=== PATIENT | female | born 1950 | race Caucasian/White ===

== ENCOUNTER 2018-02-02 01:49 | Emergency (ER) | payer MEDICARE, SELFPAY ==
[2018-02-02 01:56] VITALS: BP 164/71; PULSE 70; RESP 14; TEMP 36.9; O2SAT 95; BMI 29.9
--- NOTE | 2018-02-02 02:07 | XR_ITS ---
XR chest 2V HISTORY: ITS.REASON: cough ORDERING PHYSICIAN: Preston Najera MD PATIENT AGE: 67 years COMPARISON: 09/23/2017 FINDINGS: The cardiomediastinal silhouette and pulmonary vascularity are within normal limits. Bipolar pacemaker is in place. The lungs are clear without infiltrates, suspicious nodules, or pleural effusions. No acute bony abnormalities. IMPRESSION: No acute finding
[2018-02-02 02:36] LABS: Basophils # 0.1 K/mm3 (0-0.2); Basophils % 0.5 % (0.1-2.0); Eosinophils # 0.5 K/mm3 (0.0-0.4); Eosinophils % 4.5 % (0.1-12.0); Hematocrit 41.5 % (37.0-47.0); Hemoglobin 13.2 g/dL (12.2-16.2); Lymphocytes # 3.5 K/mm3 (0.7-4.5); Lymphocytes % 30.5 K/mm3 (10-50); Mean Corpuscular HGB Conc 31.7 g/dL (31.8-35.4); Mean Corpuscular Hemoglobin 26.8 pg (27.0-31.2); Mean Corpuscular Volume 84.8 fl (81-99); Mean Platelet Volume 8.4 fl (7.4-10.4); Monocytes # 0.7 K/mm3 (0.1-1.0); Monocytes % 5.7 % (1.7-9.3); Neutrophils # 6.8 K/mm3 (1.8-7.8); Neutrophils % 58.7 % (37.0-80.0); Platelet Count 181 K/mm3 (142-424); Red Cell Distribution Width 13.1 % (11.5-17.5); White Blood Count 11.6 K/mm3 (4.8-10.8)
[2018-02-02 02:48] LABS: Lactic Acid 1.3 mmol/L (0.4-2.0)
[2018-02-02 02:52] VITALS: PULSE 83
[2018-02-02 02:53] VITALS: PULSE 83
[2018-02-02 02:55] LABS: Anion Gap 10.1 mEq/L (5-15); Blood Urea Nitrogen 15 mg/dL (7-18); CKMB Relative Index 1.3 U/L (0-4.0); Carbon Dioxide 29 mmol/L (21.0-32.0); Chloride 106 mmol/L (98-107); Creatine Kinase 39 U/L (26-192); Creatine Kinase MB < 0.5 mg/ml (0.0-3.6); Creatinine Clearance Estimated 69 mL/min (0-300); Creatinine,Serum 0.79 mg/dL (0.55-1.02); Estimated Glomerular Filt Rate 72 ml/min (>60); GFR (African American) 88 ML/MIN (>60); Glucose 136 mg/dL (74-106); Potassium 4.1 mmoL/L (3.5-5.1); Sodium 141 mmol/L (136-145); Troponin I < 0.02 ng/ml (0.00-0.06)
--- NOTE | 2018-02-02 03:02 | HMH.EDSOB ---
ED Disposition Clinical Impression: Bronchitis, Cardiac pacemaker in situ Disposition: Home, Self-Care Condition on Discharge: Good Instructions: DI for Acute Bronchitis Additional Instructions: use meds and see pcp for follow up Prescriptions: Azithromycin [Zithromax 250mg tab] 250 mg PO DIRECTED #6 tab Benzonatate [Tessalon Perle 100mg Cap] 100 mg PO TID #30 cap predniSONE [Prednisone 20mg Tab] 20 mg PO DAILY #10 tab Referrals: Oracio Tellez MD [Primary Care Provider] - - Critical Care Critical Care Time: No Attestation: On 02/02/18, the high probability of a clinically significant, sudden or life threatening deterioration of the following system(s) required my full and direct attention, intervention and personal management. The time I documented below is in addition to time spent performing reported procedures but includes the following listed in this critical care notation. Medical Decision Making - Medical Records Medical records reviewed: Yes: I reviewed the patient's medical records. - Sánchez Inquiry Pt receiving controlled substance: No Vital Signs: 02/02/18 01:56 02/02/18 02:52 02/02/18 02:53 Temperature 98.4 F Temperature Source Oral Pulse Rate 83 83 Pulse Rate [Left Radial] 70 Respiratory Rate 14 Blood Pressure [Right Arm] 164/71 Blood Pressure Mean [Right Arm] 102 Blood Pressure Source [Right Arm] Automatic Cuff Blood Pressure Position [Right Arm] Sitting 02 Sat by Pulse Oximetry 95 Oxygen Delivery Method Room Air 02/02/18 04:39 Temperature Temperature Source Pulse Rate Pulse Rate [Left Radial] 71 Respiratory Rate 16 Blood Pressure [Right Arm] 136/75 Blood Pressure Mean [Right Arm] 95 Blood Pressure Source [Right Arm] Automatic Cuff Blood Pressure Position [Right Arm] Sitting 02 Sat by Pulse Oximetry 93 L Oxygen Delivery Method Room Air - Lab Data Lab results reviewed: Yes: I reviewed the patient's lab results. Lab Results 02/02/18 02:23: WBC 11.6 H, RBC 4.90, Hgb 13.2, Hct 41.5, MCV 84.8, MCH 26.8 L, MCHC 31.7 L, RDW 13.1, Plt Count 181, MPV 8.4, Neut % (Auto) 58.7, Lymph % (Auto) 30.5, [place] % (Auto) 5.7, Eos % (Auto) 4.5, Baso % (Auto) 0.5, Neut # (Auto) 6.8, Lymph # (Auto) 3.5, [place] # (Auto) 0.7, Eos # (Auto) 0.5 H, Baso # (Auto) 0.1 02/02/18 02:23: Sodium 141, Potassium 4.1, Chloride 106, Carbon Dioxide 29, Anion Gap 10.1, BUN 15, Creatinine 0.79, Estimated Creat Clear 69, Estimated GFR 72, Est GFR ( Amer) 88, Glucose 136 H, Total Creatine Kinase 39, CK-MB (CK-2) < 0.5, CK-MB (CK-2) Rel Index 1.3, Troponin I < 0.02 02/02/18 02:23: Lactic Acid 1.3 02/02/18 02:23: Influenza Type A Ag Negative, Influenza Type B Ag Negative 02/02/18 04:55: Troponin I < 0.02 Result diagrams: 02/02/18 02:23 02/02/18 02:23 Orders (Tests/Meds): ED MEDICATIONS Generic Name Dose Route Start Last Admin Trade Name Freq PRN Reason Stop Dose Admin Albuterol Sulfate 2 puffs 02/02/18 06:00 Proventil-Hfa 90mcg/Puff Inhaler 03/04/18 05:59 Q6RT VIKTOR Ceftriaxone Sodium 1 gm/ 50 mls @ 100 mls/hr 02/02/18 06:00 Sodium Chloride IV 02/16/18 05:59 Q24H VIKTOR Protocol Discontinued Medications Generic Name Dose Route Start Last Admin Trade Name Freq PRN Reason Stop Dose Admin Albuterol/Ipratropium 3 ml 02/02/18 02:10 02/02/18 02:10 Duoneb 3ml Neb IH 02/02/18 02:11 3 ml ONCE ONE Administration Furosemide 40 mg 02/02/18 03:05 02/02/18 03:07 Lasix 40mg/4ml Vial IV 02/02/18 03:06 40 mg ONCE ONE Administration Methylprednisolone Sodium Succinate 125 mg 02/02/18 02:10 02/02/18 02:16 Solu-Medrol 125mg/2ml Vial IV 02/02/18 02:11 125 mg ONCE ONE Administration Miscellaneous 1 unit 02/02/18 05:58 Aerochamber/Optihaler MC 02/02/18 05:59 ONCE ONE ORDERS Category Date Time Status Blood Culture Stat Micro 02/02/18 02:23 Received - Radiology Data #1
--- NOTE | 2018-02-02 03:06 | ED_ITS ---
ED Disposition Clinical Impression: Bronchitis, Cardiac pacemaker in situ Disposition: Home, Self-Care Condition on Discharge: Good Instructions: DI for Acute Bronchitis Additional Instructions: use meds and see pcp for follow up Prescriptions: Azithromycin [Zithromax 250mg tab] 250 mg PO DIRECTED #6 tab Benzonatate [Tessalon Perle 100mg Cap] 100 mg PO TID #30 cap predniSONE [Prednisone 20mg Tab] 20 mg PO DAILY #10 tab Referrals: Oracio Tellez MD [Primary Care Provider] - - Critical Care Critical Care Time: No Attestation: On 02/02/18, the high probability of a clinically significant, sudden or life threatening deterioration of the following system(s) required my full and direct attention, intervention and personal management. The time I documented below is in addition to time spent performing reported procedures but includes the following listed in this critical care notation. Medical Decision Making - Medical Records Medical records reviewed: Yes: I reviewed the patient's medical records. - Sánchez Inquiry Pt receiving controlled substance: No Vital Signs: 02/02/18 01:56 02/02/18 02:52 02/02/18 02:53 Temperature 98.4 F Temperature Source Oral Pulse Rate 83 83 Pulse Rate [Left Radial] 70 Respiratory Rate 14 Blood Pressure [Right Arm] 164/71 Blood Pressure Mean [Right Arm] 102 Blood Pressure Source [Right Arm] Automatic Cuff Blood Pressure Position [Right Arm] Sitting 02 Sat by Pulse Oximetry 95 Oxygen Delivery Method Room Air 02/02/18 04:39 Temperature Temperature Source Pulse Rate Pulse Rate [Left Radial] 71 Respiratory Rate 16 Blood Pressure [Right Arm] 136/75 Blood Pressure Mean [Right Arm] 95 Blood Pressure Source [Right Arm] Automatic Cuff Blood Pressure Position [Right Arm] Sitting 02 Sat by Pulse Oximetry 93 L Oxygen Delivery Method Room Air - Lab Data Lab results reviewed: Yes: I reviewed the patient's lab results. Lab Results 02/02/18 02:23: WBC 11.6 H, RBC 4.90, Hgb 13.2, Hct 41.5, MCV 84.8, MCH 26.8 L, MCHC 31.7 L, RDW 13.1, Plt Count 181, MPV 8.4, Neut % (Auto) 58.7, Lymph % (Auto ) 30.5, [place] % (Auto) 5.7, Eos % (Auto) 4.5, Baso % (Auto) 0.5, Neut # (Auto) 6.8, Lymph # (Auto) 3.5, [place] # (Auto) 0.7, Eos # (Auto) 0.5 H, Baso # (Auto) 0.1 02/02/18 02:23: Sodium 141, Potassium 4.1, Chloride 106, Carbon Dioxide 29, Anion Gap 10.1, BUN 15, Creatinine 0.79, Estimated Creat Clear 69, Estimated GFR 72, Est GFR ( Amer) 88, Glucose 136 H, Total Creatine Kinase 39, CK- MB (CK-2) < 0.5, CK-MB (CK-2) Rel Index 1.3, Troponin I < 0.02 02/02/18 02:23: Lactic Acid 1.3 02/02/18 02:23: Influenza Type A Ag Negative, Influenza Type B Ag Negative 02/02/18 04:55: Troponin I < 0.02 Result diagrams: 02/02/18 02:23 02/02/18 02:23 Orders (Tests/Meds): ED MEDICATIONS Generic Name Dose Route Start Last Admin Trade Name Freq PRN Reason Stop Dose Admin Albuterol Sulfate 2 puffs 02/02/18 06:00 Proventil-Hfa 90mcg/Puff Inhaler IH 03/04/18 05:59 Q6RT [facility] Ceftriaxone Sodium 1 gm/ 50 mls @ 100 mls/hr 02/02/18 06:00 Sodium Chloride IV 02/16/18 05:59 Q24H VIKTOR Protocol Discontinued Medications Generic Name Dose Route Sta
[2018-02-02 04:39] VITALS: BP 136/75; PULSE 71; RESP 16; O2SAT 93
[2018-02-02 05:12] LABS: Troponin I < 0.02 ng/ml (0.00-0.06)
[2018-02-02 06:31] VITALS: BP 150/60; PULSE 78; RESP 14; TEMP 37.1; O2SAT 99
== END 2018-02-02 06:35 | disposition home or self-care (01) ==
PROVIDERS: Emergency Provider Emergency Medicine; Family Provider Family Medicine; PCP Family Medicine
DX: J20.9 Acute bronchitis, unspecified (principal)
CPT/HCPCS: 71046; 80048; 82550; 82553; 83605; 84484; 85025; 87040; 87275; 87276; 93005; 96365; 96374; 99284

== ENCOUNTER → 2018-04-11 08:47 | Outpatient (CLI) | payer MEDICARE, SELFPAY ==
[2018-04-11 10:24] LABS: Anion Gap 13.2 mEq/L (5-15); Blood Urea Nitrogen 17 mg/dL (7-18); Carbon Dioxide 28 mmol/L (21.0-32.0); Chloride 100 mmol/L (98-107); Creatinine,Serum 0.89 mg/dL (0.55-1.02); Estimated Glomerular Filt Rate 63 ml/min (>60); GFR (African American) 76 ML/MIN (>60); Glucose 271 mg/dL (74-106); Potassium 4.2 mmoL/L (3.5-5.1); Sodium 137 mmol/L (136-145)
== END ==
PROVIDERS: Visit Provider Internal Medicine
DX: Z95.0 Presence of cardiac pacemaker (principal)
CPT/HCPCS: 36415; 80048

== ENCOUNTER → 2019-02-22 11:09 | Outpatient (CLI) | payer MEDICARE, SELFPAY ==
--- NOTE | 2019-02-22 11:19 | XR_ITS ---
XR chest 2V HISTORY: ITS.REASON: ASTHMATIC BRONCHITIS ORDERING PHYSICIAN: Oracio Tellez MD PATIENT AGE: 68 years COMPARISON: PA and lateral chest 02/02/2018 FINDINGS: The cardiomediastinal silhouette and pulmonary vascularity are within normal limits. There is a left-sided cardiac pacemaker with dual chamber electrodes both in good position. The lungs are clear without infiltrates, suspicious nodules, or pleural effusions. No acute bony abnormalities. IMPRESSION: Negative chest, no acute finding
== END ==
PROVIDERS: PCP Family Medicine; Visit Provider Family Medicine
DX: J45.901 Unspecified asthma with (acute) exacerbation (principal)
CPT/HCPCS: 71046

== ENCOUNTER 2019-04-23 03:24 | Emergency (ER) | payer MEDICARE, SELFPAY ==
[2019-04-23 03:32] VITALS: BP 156/82; PULSE 85; RESP 16; TEMP 36.8; O2SAT 94; BMI 26.6
--- NOTE | 2019-04-23 03:39 | CT_ITS ---
CT sinus wo con CLINICAL INDICATION: ITS.REASON: right facial pain ORDERING PHYSICIAN: Preston Camejo MD PATIENT AGE: 68 years COMPARISON: None TECHNIQUE:Axial images obtained with sagittal and coronal reformats. All CT scans at the facility use one or more dose reduction, viz: automated exposure control, ma/kV adjustment per patient size (including targeted exams where dose is matched to indication, i.e. head), or iterative reconstruction technique. FINDINGS: Frontal sinuses are unremarkable. There is mild mucosal thickening involving the ethmoid sinuses on both sides. There is mild rightward nasal septal deviation. There is a plasia of the left sphenoid sinus and hypoplasia of the right sphenoid sinus. There is mild mucosal thickening of the maxillary sinuses on both sides with mucous retention cyst in the floor the left maxillary sinus at 14 mm. No sinus air-fluid level. There is under pneumatization with sclerosis of both mastoid sinuses. Prominent disc osteophyte complex is present in the left paracentral region at C5-C6 with canal stenosis and foraminal narrowing. IMPRESSION: Mild paranasal sinus disease Decreased pneumatization with sclerosis of the mastoid sinuses Canal stenosis at C5-C6 from disc osteophyte complex
--- NOTE | 2019-04-23 03:39 | CT_ITS ---
CT head/brain wo con HISTORY: Headache, pain ITS.REASON: right facial pain ORDERING PHYSICIAN: Preston Camejo MD PATIENT AGE: 68 years No comparison TECHNIQUE: Axial images obtained without contrast. Brain and bone windows reviewed. All CT scans at the facility use one or more dose reduction, viz: automated exposure control, ma/kV adjustment per patient size (including targeted exams where dose is matched to indication, i.e. head), or iterative reconstruction technique. FINDINGS: No midline shift, mass effect, intracranial hemorrhage, hydrocephalus, or extra-axial fluid collection is evident. The calvarium has an unremarkable appearance. There is sclerosis of the mastoid sinuses on both sides with decrease pneumatization. There is mild mucosal thickening of the ethmoid sinuses. IMPRESSION: No acute intracranial findings Mild ethmoid sinus disease
[2019-04-23 03:48] LABS: Basophils # 0.1 K/mm3 (0-0.2); Basophils % 0.5 % (0.1-2.0); Eosinophils # 0.3 K/mm3 (0.0-0.4); Eosinophils % 2.3 % (0.1-12.0); Hematocrit 39.1 % (37.0-47.0); Hemoglobin 13.3 g/dL (12.2-16.2); Lymphocytes # 3.2 K/mm3 (0.7-4.5); Lymphocytes % 26.6 % (10-50); Mean Corpuscular Hemoglobin 26.8 pg (27.0-31.2); Mean Corpuscular Volume 78.8 fl (81-99); Mean Platelet Volume 8.4 fl (7.4-10.4); Monocytes # 0.6 K/mm3 (0.1-1.0); Neutrophils % 65.5 % (37.0-80.0); Platelet Count 194 K/mm3 (142-424); Red Blood Count 4.96 M/mm3 (4.20-5.40); Red Cell Distribution Width 12.5 % (11.5-17.5); White Blood Count 12.2 K/mm3 (4.8-10.8)
--- NOTE | 2019-04-23 03:49 | HMH.EDGENADL ---
ED Disposition Clinical Impression: Sinusitis, acute, Facial pain, Diabetes mellitus Disposition: Home, Self-Care Condition on Discharge: Good Instructions: Sinusitis, DI for Sinusitis Additional Instructions: Meds as directed for sinusitis/inflammation. Recommend you also use Afrin nasal spray to help reduce swelling in your large airways. If you see any rash develop on your cheek or forehead, you need to see your primary doctor or return to ER Prescriptions: Oxymetazoline HCl [Afrin Nasal [place] 15mL] 2 spry NOSTRIL-B BID 7 Days #15 spray cephALEXin [Keflex 500mg Cap] 1,000 mg PO BID 7 Days #30 cap Referrals: Oracio Tellez MD [Primary Care Provider] - Time of Disposition: 04:40 - Critical Care Critical Care Time: No Attestation: On 04/23/19, the high probability of a clinically significant, sudden or life threatening deterioration of the following system(s) required my full and direct attention, intervention and personal management. The time I documented below is in addition to time spent performing reported procedures but includes the following listed in this critical care notation. Medical Decision Making - Medical Records Medical records reviewed: Yes: I reviewed the patient's medical records. - Sánchez Inquiry Pt receiving controlled substance: No Sánchez was queried for this patient: No Vital Signs: 04/23/19 03:32 Temperature 98.3 F Temperature Source Oral Pulse Rate [Right] 85 Respiratory Rate 16 Blood Pressure [Right Arm] 156/82 H Blood Pressure Mean [Right Arm] 106 Blood Pressure Source [Right Arm] Automatic Cuff Blood Pressure Position [Right Arm] Sitting 02 Sat by Pulse Oximetry 94 L Oxygen Delivery Method Room Air - Lab Data Lab results reviewed: Yes: I reviewed the patient's lab results. Lab Results 04/23/19 03:40: WBC 12.2 H, RBC 4.96, Hgb 13.3, Hct 39.1, MCV 78.8 L, MCH 26.8 L, MCHC 34.0, RDW 12.5, Plt Count 194, MPV 8.4, Neut % (Auto) 65.5, Lymph % (Auto) 26.6, [place] % (Auto) 5.0, Eos % (Auto) 2.3, Baso % (Auto) 0.5, Neut # (Auto) 8.0 H, Lymph # (Auto) 3.2, [place] # (Auto) 0.6, Eos # (Auto) 0.3, Baso # (Auto) 0.1 04/23/19 03:40: Sodium 140, Potassium 3.9, Chloride 103, Carbon Dioxide 24, Anion Gap 16.9 H, BUN 21 H, Creatinine 1.00, Estimated Creat Clear 61, Estimated GFR 55 L, Est GFR ( Amer) 67, Glucose 143 H, Calcium 9.0, Total Bilirubin 0.6, AST 15, ALT 24, Alkaline Phosphatase 111, Total Protein 7.5, Albumin 3.8, Globulin 3.7 H, Albumin/Globulin Ratio 1.0 L Result diagrams: 04/23/19 03:40 04/23/19 03:40 Orders (Tests/Meds): ED MEDICATIONS Generic Name Dose Route Start Last Admin Trade Name Freq PRN Reason Stop Dose Admin Sodium Chloride 1,000 mls @ 999 mls/hr 04/23/19 03:45 04/23/19 04:08 Sod Chlor 0.9% 1000ml Bag IV 04/23/19 04:45 999 mls/hr .Q1H1M VIKTOR Administration Ceftriaxone Sodium 2 gm/ 100 mls @ 200 mls/hr 04/23/19 04:30 04/23/19 04:30 Sodium Chloride IV 05/07/19 04:29 200 mls/hr Q12H VIKTOR Administration Protocol Discontinued Medications Generic Name Dose Route Start Last Admin Trade Name Freq PRN Reason Stop Dose Admin Ketorolac Tromethamine 30 mg 04/23/19 03:48 04/23/19 04:08 Toradol 30mg/Ml Vial IV 04/23/19 03:49 30 mg ONCE ONE Administration Methylprednisolone Sodium Succinate 125 mg 04/23/19 03:40 04/23/19 04:08 Solu-Medrol 125mg/2ml Vial IV 04/23/19 03:41 125 mg ONCE ONE Administration Ondansetron HCl 4 mg 04/23/19 03:40 04/23/19 04:08 Zofran 4mg/2ml Vial IV 04/23/19 03:41 4 mg ONCE ONE Administration ORDERS Category Date Time Status CT head/brain wo con Stat Cat Scan 04/23/19 03:[address] sinus wo con Stat Cat Scan 04/23/19 03:39 Taken General Adult HPI - General Chief complaint: PAIN Stated complaint: Pain in Rt side of face and neck;nausea Time Seen by Provider: 04/23/19 03:49 Mode of Arrival: Ambulatory Source of Information: Patient Limitations: No Law
--- NOTE | 2019-04-23 03:52 | ED_ITS ---
ED Disposition Clinical Impression: Sinusitis, acute, Facial pain, Diabetes mellitus Disposition: Home, Self-Care Condition on Discharge: Good Instructions: Sinusitis, DI for Sinusitis Additional Instructions: Meds as directed for sinusitis/inflammation. Recommend you also use Afrin nasal spray to help reduce swelling in your large airways. If you see any rash develop on your cheek or forehead, you need to see your primary doctor or return to ER Prescriptions: Oxymetazoline HCl [Afrin Nasal [place] 15mL] 2 spry NOSTRIL-B BID 7 Days #15 spray cephALEXin [Keflex 500mg Cap] 1,000 mg PO BID 7 Days #30 cap Referrals: Oracio Tellez MD [Primary Care Provider] - Time of Disposition: 04:40 - Critical Care Critical Care Time: No Attestation: On 04/23/19, the high probability of a clinically significant, sudden or life threatening deterioration of the following system(s) required my full and direct attention, intervention and personal management. The time I documented below is in addition to time spent performing reported procedures but includes the following listed in this critical care notation. Medical Decision Making - Medical Records Medical records reviewed: Yes: I reviewed the patient's medical records. - Sánchez Inquiry Pt receiving controlled substance: No Sánchez was queried for this patient: No Vital Signs: 04/23/19 03:32 Temperature 98.3 F Temperature Source Oral Pulse Rate [Right] 85 Respiratory Rate 16 Blood Pressure [Right Arm] 156/82 H Blood Pressure Mean [Right Arm] 106 Blood Pressure Source [Right Arm] Automatic Cuff Blood Pressure Position [Right Arm] Sitting 02 Sat by Pulse Oximetry 94 L Oxygen Delivery Method Room Air - Lab Data Lab results reviewed: Yes: I reviewed the patient's lab results. Lab Results 04/23/19 03:40: WBC 12.2 H, RBC 4.96, Hgb 13.3, Hct 39.1, MCV 78.8 L, MCH 26.8 L , MCHC 34.0, RDW 12.5, Plt Count 194, MPV 8.4, Neut % (Auto) 65.5, Lymph % (Auto) 26.6, [place] % (Auto) 5.0, Eos % (Auto) 2.3, Baso % (Auto) 0.5, Neut # ( Auto) 8.0 H, Lymph # (Auto) 3.2, [place] # (Auto) 0.6, Eos # (Auto) 0.3, Baso # (Auto) 0.1 04/23/19 03:40: Sodium 140, Potassium 3.9, Chloride 103, Carbon Dioxide 24, Anion Gap 16.9 H, BUN 21 H, Creatinine 1.00, Estimated Creat Clear 61, Estimated GFR 55 L, Est GFR ( Amer) 67, Glucose 143 H, Calcium 9.0, Total Bilirubin 0.6, AST 15, ALT 24, Alkaline Phosphatase 111, Total Protein 7.5, Albumin 3.8, Globulin 3.7 H, Albumin/Globulin Ratio 1.0 L Result diagrams: 04/23/19 03:40 04/23/19 03:40 Orders (Tests/Meds): ED MEDICATIONS Generic Name Dose Route Start Last Admin Trade Name Freq PRN Reason Stop Dose Admin Sodium Chloride 1,000 mls @ 999 mls/hr 04/23/19 03:45 04/23/19 04:08 Sod Chlor 0.9% 1000ml Bag IV 04/23/19 04:45 999 mls/hr .Q1H1M VIKTOR Administration Ceftriaxone Sodium 2 gm/ 100 mls @ 200 mls/hr 04/23/19 04:30 04/23/19 04:30 Sodium Chloride IV 05/07/19 04:29 200 mls/hr Q12H VIKTOR Administration Protocol Discontinued Medications Generic Name Dose Route Start Last Admin Trade Name Freq PRN Reason Stop Dose Admin Ketorolac Tromethamine 30 mg 04/23/19 03:48 04/23/19 04:08 Toradol 30m
[2019-04-23 04:03] LABS: Alanine Aminotransferase 24 U/L (12-78); Albumin Level 3.8 gm/dL (3.4-5.0); Alkaline Phosphatase 111 U/L (46-116); Anion Gap 16.9 mEq/L (5-15); Aspartate Amino Transferase 15 U/L (15-37); Bilirubin,Total 0.6 mg/dL (0.2-1.0); Blood Urea Nitrogen 21 mg/dL (7-18); Carbon Dioxide 24 mmol/L (21.0-32.0); Chloride 103 mmol/L (98-107); Creatinine Clearance Estimated 61 mL/min (50-200); Estimated Glomerular Filt Rate 55 ml/min (>60); GFR (African American) 67 ML/MIN (>60); Globulin 3.7 gm/dl (1.3-3.2); Glucose 143 mg/dL (74-106); Potassium 3.9 mmoL/L (3.5-5.1); Sodium 140 mmol/L (136-145); Total Protein,Serum 7.5 gm/dL (6.4-8.2)
[2019-04-23 05:13] VITALS: BP 152/68; PULSE 86; RESP 16; TEMP 36.8; O2SAT 98
== END 2019-04-23 05:15 | disposition home or self-care (01) ==
PROVIDERS: Emergency Provider Emergency Medicine; PCP Family Medicine
DX: J01.90 Acute sinusitis, unspecified (principal); I10 Essential (primary) hypertension; E11.9 Type 2 diabetes mellitus without complications; Z79.84 Long term (current) use of oral hypoglycemic drugs; E78.5 Hyperlipidemia, unspecified; Z95.0 Presence of cardiac pacemaker
CPT/HCPCS: 70450; 70486; 80053; 85025; 96365; 96367; 96375; 99283; J2405

== ENCOUNTER → 2019-10-04 12:25 | Outpatient (CLI) | payer MEDICARE, SELFPAY ==
--- NOTE | 2019-10-04 12:30 | CT_ITS ---
PROCEDURE: CT HEAD/BRAIN WO CON CLINICAL INDICATION: TRAUMATIC HEAD INJURY Rind signing following injury with loss of consciousness, persistent headache COMPARISON: HEADWO CT head/brain wo con from 04/23/2019 TECHNIQUE: Axial images obtained. All CT scans at the facility use one or more dose reduction, viz: automated exposure control, ma/kV adjustment per patient size (including targeted exams where dose is matched to indication, i.e. head), or iterative reconstruction technique. FINDINGS: No midline shift, mass effect, intracranial hemorrhage, hydrocephalus, or extra-axial fluid collection is evident. There is mild bifrontal atrophy. The calvarium has an unremarkable appearance. The mastoid sinuses are hypoplastic. Mild mucosal thickening involves the ethmoid sinuses. IMPRESSION: No acute intracranial finding Dictated by: Tj Haynes MD 10/04/2019 16:45 Electronically signed by Tj Haynes MD in [place] 10/04/2019 16:45
== END ==
PROVIDERS: PCP Family Medicine; Visit Provider Family Medicine
DX: S09.90XA Unspecified injury of head, initial encounter (principal)
CPT/HCPCS: 70450

== ENCOUNTER → 2019-11-06 10:45 | Outpatient (CLI) | payer MEDICARE, SELFPAY ==
--- NOTE | 2019-11-06 10:45 | CA_ITS ---
APPROVED REPORT EXAM: Comprehensive 2D, Doppler, and color-flow Echocardiogram [employer] Machine Repairer: Jamaica Garcia RDCS Ht: 5 ft 5 in Wt: 166lbs BSA: 1.83 BP: 129/58 mmHg Indications: Abnormal ECG, Diabetes, Obesity, Hyperlipidemia, Hypertension/HDD,PP 2D Dimensions LVOT 1.80 cm (M/F) 1.5-2.5 M-Mode Dimensions RVDd 1.93 cm (0.9-2.6) LVDd 5.45 cm (3.5-5.7) LVDs 4.43 cm (3.5-5.7) IVSd 1.10 cm (0.6-1.1) PWd 0.78 cm (0.6-1.1) EF (Teich) 38.30% FS 18.70% EDV (Teich) 144.40 mL ESV (Teich) 89.10 mL LV Diastology E/A Ratio 0.81 Mitral Valve MV A Velocity 82.00 (40-130 cm/s) Left Ventricle Left atrium is mildly enlarged, left ventricle is normal size, mild concentric left ventricular hypertrophy, visually estimated ejection fraction 55% with no regional wall motion abnormality. Grade 1 diastolic dysfunction seen with tissue Doppler evidence of raise left atrial pressure. Right Ventricle Right atrium and right ventricle mildly enlarged with normal contractility. Aortic Valve Aortic valve is minimally thickened and fibrosed leaflet continue to display good mobility, there is no aortic stenosis or aortic insufficiency. Mitral Valve Mitral valve is grossly normal, there is mild mitral regurgitation. Tricuspid Valve Tricuspid valve is grossly normal, there is mild tricuspid regurgitation. Pulmonic Valve Pulmonic valve is poorly visualized. Great Vessels Aortic root is normal size. Pericardium No significant pericardial effusion noted. Conclusion 1. Mildly enlarged left atrium, normal left ventricular size, mild concentric left ventricular hypertrophy, visually estimated ejection fraction 55% with no regional wall motion abnormality, grade 1 diastolic dysfunction seen with tissue Doppler evidence of raise left atrial pressure. 2. Mildly enlarged right ventricle with normal contractility. 3. Mild mitral and tricuspid regurgitation. 4. No significant pericardial effusion noted. Electronically signed by : Benja Parker, 11/07/2019 06:17:42
== END ==
PROVIDERS: PCP Family Medicine; Visit Provider Urology
DX: E11.9 Type 2 diabetes mellitus without complications (principal); G47.33 Obstructive sleep apnea (adult) (pediatric); I10 Essential (primary) hypertension; Z95.0 Presence of cardiac pacemaker; E78.49 Other hyperlipidemia; Z79.84 Long term (current) use of oral hypoglycemic drugs
CPT/HCPCS: 93306

== ENCOUNTER → 2020-07-15 08:03 | Outpatient (CLI) | payer MEDICARE, SELFPAY ==
--- NOTE | 2020-07-15 08:08 | XR_ITS ---
PROCEDURE: XR DEXA AXIAL SKELETON CLINICAL HISTORY: OSTEOPENIA, UNSPECIFIED COMPARISON: No exams were available for comparison FINDINGS: The right hip BMD is 0.773 with a t-score of -1.0. The left hip BMD is 0.841 with a t-score of -0.8. The lumbar spine BMD is 0.901 with a t-score of -1.3. IMPRESSION: This patient is considered osteopenic according to the World Health Organization criteria. Bone density is between 10 and 25 percent below young normal . Fracture risk is moderate. Treatment is advised. Based on these results of follow-up exam is recommended in 2 years Dictated by: Tj Haynes MD 07/16/2020 20:06 Tj Haynes MD in [place] 07/17/2020 06:13
--- NOTE | 2020-07-15 08:08 | MM_ITS ---
PROCEDURE: MM DIG SCREENING MAMM BI W/CAD Digital Breast Tomosynthesis Included CLINICAL INDICATION: SCREENING There is a history of breast cancer patient's sister diagnosed at age 70. COMPARISON: MG DIGMAMMDX MAMMOGRAM DX-QUALITY CONTROL COORDINATOR N/C from 09/07/2007 MG DIGMAMMS MAMMOGRAM SCREEN-QUALITY CONTROL COORDINATOR N/C from 03/07/2008 MG DMSB DIG MAMM-SCREEN CAYLA W/CAD from 03/30/2017 TECHNIQUE: Standard CC and MLO images and 3D Tomosynthesis was obtained. R2 CAD reviewed. FINDINGS: Moderate scattered fibroglandular densities are seen throughout both breasts slightly more prominent upper outer quadrants. There are couple of benign-appearing calcifications in each breast. There is no suspicious lesion and no suspicious microcalcifications. IMPRESSION: Moderate breast density with no suspicious lesions seen BI-RAD Category: 2 Benign Finding(s) FOLLOW-UP: 1YR 1 Year Follow-up (A letter has been sent to the patient regarding results of the study.) Dictated by: Dr. Henry Gilman MD 07/16/2020 08:23 Dr. Henry Gilman MD in [place] 07/16/2020 08:23
== END ==
PROVIDERS: PCP Family Medicine; Visit Provider Family Medicine
DX: Z12.31 Encounter for screening mammogram for malignant neoplasm of breast (principal); M85.89 Other specified disorders of bone density and structure, multiple sites
CPT/HCPCS: 77063; 77067; 77080

== ENCOUNTER → 2020-10-30 06:50 | Outpatient (CLI) | payer MEDICARE, SELFPAY ==
--- NOTE | 2020-10-30 06:51 | CA_ITS ---
APPROVED REPORT Exam: Pharmacologic Technologist: Yuridia Mayer Ht: 5 ft 5 in Wt: 171 lbs BSA: 1.85 m2 HR: 70 bpm BP: 139/63 mmHg Indications: Chest pain Medical History Medications: Aspirin,,,,, Metformin,,,,, Glimepiride,,,,, RoSUVASTATIN,,,,, TriaMterene-hctz,,,,, Stress Test Details Test: LEXISCAN HR Resting HR: 70 bpm Max Heart Rate (APMHR): 149 bpm Max HR Achieved: 71 bpm Target HR (85% APMHR): 126 bpm % of APMHR: 47 Recovery HR: 70 bpm BP Resting BP: 139.0/63.0 mmHg Max BP: 156.0/73.0 mmHg Recovery BP: 145.0/65.0 mmHg ECG Clinical Exercise duration: 04:13 min Highest Stage Achieved: Stress ECG Conclusion Resting EKG: Electronically paced rhythm Symptoms: Shortness of air, nausea, malaise. No chest pain. Arrhythmias/Ectopy: None ST-T Changes: Mild ST depression of 1 mm inferiorly and laterally. Conclusion: Non-diagnostic Lexiscan stress. Myoview images reported separately. Test Summary RECOVERY 05:00 . . 70 . 156/ 73 . . REST 04:57 . . 70 . 139/ 63 . . Stage 1 . . . . . . . Myoview Injected Stage 1 01:00 . . 70 . . . . Stage 2 01:00 . . 70 . 113/ 42 . . Stage 3 . . . . . . . Nausea Stage 3 01:00 . . 69 . 115/ 52 . . Stage 4 01:00 . . 70 . . . . Stage 4 01:13 . . 70 . . . Stop exercise at 04:13 RECOVERY 01:00 . . 70 . . . . RECOVERY 02:00 . . 70 . . . . RECOVERY 03:00 . . 70 . . . . RECOVERY 04:00 . . 70 . 156/ 73 . . RECOVERY 05:00 . . 70 . 156/ 73 . . RECOVERY 05:58 . . 70 . 145/ 65 . . Electronically signed by : Benja Parker, 10/31/2020 10:56:07
--- NOTE | 2020-10-30 06:51 | NM_ITS ---
APPROVED REPORT Exam: Nuclear Stress Test Indication: HTN, D.M., HYPERLIPIDEMIA, FM HX, C.P. Patient Location: Outpatient Stress Tech: Yuridia Mayer [place] Tech:Anel Puckett, ARRT, RT (R)(N) Ht: 5 ft 5 in Wt: 170 lbs HR: 70 bpm BP: 139/63 mmHg BSA: 1.85 m2 BMI: 28.2 History: HTN, D.M., HYPERLIPIDEMIA, FM HX, C.P. Procedure: Patient received a 0.4 mg of intravenous Lexiscan, resting heart rate 70 bpm, resting blood pressure 139/63 mmHg, with Lexiscan maximum heart rate achived was 70 bpm which is Less than 85 % of the maximum predicted heart rate and blood pressure was 113/42 mmHg. With Lexiscan, patient denied any complaint of chest pain. Electrocardiogram Resting electrocardiogram showed sinus rhythm, with Lexiscan there is [address] segment depression noted from the baseline EKG. The EKG portion of the Lexiscan Myoview is positive for ischemia. Cardiac Stress and Resting SPECT Images: Cardiac Stress and Resting SPECT images were obtained using technetium 99m Myoview 32.6 mCi stress and 10.71 mCi at rest. Gated SPECT for analysis of segmental wall motion and calculation of the ejection fraction also done, prone images were also obtained. The cardiac stress and resting SPECT images show uniform myocardial activity without segmental perfusion abnormality, computer derived ejection fraction is over 65% with no regional wall motion abnormality, however there appears to be mild transient ischemic dilatation of the left ventricle raising the concerns for presence of balanced ischemia. Conclusion: 1. The EKG portion of the Lexiscan Myoview is positive for ischemia. 2. No scintigraphic evidence of reversible ischemia seen, however there is transient ischemic dilatation of the left ventricle seen, raising the concerns for presence of balanced ischemia. Compared to ejection fraction is over 65% with no regional wall motion abnormality. 3. Abnormal Lexiscan Myoview study. Electronically signed by : Benja Parker, 10/31/2020 11:01:43
--- NOTE | 2020-10-30 08:35 | HMH.ITSHM ---
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 []HCTZ ROSUVASTATIN GLIMEPIRIDE METFORMIN
== END ==
PROVIDERS: PCP Family Medicine; Visit Provider Urology
DX: E11.9 Type 2 diabetes mellitus without complications (principal); E78.2 Mixed hyperlipidemia; G47.33 Obstructive sleep apnea (adult) (pediatric); I10 Essential (primary) hypertension; R07.9 Chest pain, unspecified; Z95.0 Presence of cardiac pacemaker; Z79.84 Long term (current) use of oral hypoglycemic drugs
CPT/HCPCS: 78452; 93017; A9502; J2785

== ENCOUNTER → 2020-11-04 10:24 | Outpatient (CLI) | payer MEDICARE, SELFPAY ==
[2020-11-04 11:53] LABS: Coronavirus 19 IgG Antibody Negative (Negative); Coronavirus 19 IgM Antibody Negative (Negative)
[2020-11-04 12:14] LABS: Alanine Aminotransferase 22 U/L (12-78); Albumin Level 4.5 g/dl (3.5-5.0); Alkaline Phosphatase 127 U/L (38-126); Anion Gap 13.5 mEq/L (5-15); Aspartate Amino Transferase 21 U/L (14-36); Bilirubin,Direct 0.3 mg/dl (0.0-0.4); Bilirubin,Indirect 0.3 mg/dL (0.0-0.9); Bilirubin,Total 0.6 mg/dl (0.2-1.3); Bilirubin,Unconjugated 0.3 mg/dL (0.0-1.1); Blood Urea Nitrogen 20 mg/dl (7-17); Calcium 9.8 mg/dl (8.4-10.2); Carbon Dioxide 27 mmol/L (22.0-30.0); Chloride 101 mmol/L (98-107); Cholesterol 165 mg/dl (140-200); Estimated Glomerular Filt Rate 71 ml/min (>60); GFR (African American) 86 ML/MIN (>60); Glucose 267 mg/dl (74-100); HDL Cholesterol 55 mg/dl (40-60); Potassium 4.5 mmoL/L (3.5-5.1); Sodium 137 mmol/L (136-145); Total Protein,Serum 7.3 g/dl (6.3-8.2); Triglycerides 119 mg/dl (30-150); VLDL Cholesterol 24 mg/dL (0-40)
[2020-11-04 12:25] LABS: Direct LDL Cholesterol 84.15 mg/dL (100-129)
[2020-11-04 13:24] LABS: Basophils # 0.1 K/mm3 (0-0.2); Eosinophils # 0.5 K/mm3 (0.0-0.4); Eosinophils % 4.4 % (0.1-12.0); Hematocrit 43.1 % (37.0-47.0); Hemoglobin 13.9 g/dL (12.2-16.2); Lymphocytes # 3.8 K/mm3 (0.7-4.5); Lymphocytes % 36.8 % (10-50); Mean Corpuscular HGB Conc 32.3 g/dL (31.8-35.4); Mean Corpuscular Hemoglobin 26.8 pg (27.0-31.2); Mean Corpuscular Volume 82.8 fl (81-99); Mean Platelet Volume 9.2 fl (7.4-10.4); Monocytes # 0.5 K/mm3 (0.1-1.0); Monocytes % 4.6 % (1.7-9.3); Neutrophils # 5.5 K/mm3 (1.8-7.8); Neutrophils % 53.2 % (37.0-80.0); Platelet Count 181 K/mm3 (142-424); Red Blood Count 5.21 M/mm3 (4.20-5.40); White Blood Count 10.3 K/mm3 (4.8-10.8)
== END ==
PROVIDERS: Visit Provider Nurse Practitioner Family
DX: I10 Essential (primary) hypertension (principal); E11.9 Type 2 diabetes mellitus without complications; E78.2 Mixed hyperlipidemia; I20.8 Other forms of angina pectoris; R94.31 Abnormal electrocardiogram [ECG] [EKG]; R94.39 Abnormal result of other cardiovascular function study; Z95.0 Presence of cardiac pacemaker; Z01.810 Encounter for preprocedural cardiovascular examination
CPT/HCPCS: 36415; 80048; 80061; 80076; 85025; 86328

== ENCOUNTER 2020-11-05 08:50 | Day surgery (SDC) | payer MEDICARE, SELFPAY ==
[2020-11-05] VITALS (11 sets, daily range): BP systolic 105–157; BP diastolic 59–91; PULSE 60–70; RESP 13–20; TEMP 36.7; O2SAT 93–99; BMI 28.6
--- NOTE | 2020-11-05 07:09 | IR_ITS ---
APPROVED REPORT Patient Location: Outpatient PROCEDURES Left heart catheterization Left ventriculogram Selective coronary angiogram INDICATION Angina pectoris, Abnormal Myoview Informed consent was obtained prior to the procedure. COMPLICATIONS None Estimated Blood Loss: less than 10ml TECHNIQUE One percent lidocaine used to anesthetize the right anterior aspect of the wrist. The right radial artery was accessed via the Seldinger technique. A 6 Hungarian sheath was placed in the right radial artery. 2.5 mg of verapamil, 800 mcg of nitroglycerin, 1mg Lidocaine and 5000 U Heparin were given through the arterial sheath. The trap catheter was also used to perform left heart catheterization, left ventriculogram and selective coronary angiogram. At the end of the procedure the sheath was removed good hemostasis was achieved using Traclet band, patient was transferred to the postop holding area in stable condition. ANGIOGRAPHIC RESULTS The left main artery Normal The left anterior descending artery Normal The circumflex artery Dominant normal The right coronary artery Normal The DALE ventriculogram reveals Hyperdynamic 75% The left ventricular end-diastolic pressure 20 mmHg IMPRESSION Normal coronary arteries Hyperdynamic ventricle estimated at 75% Elevated LVEDP consistent with hypertensive heart disease with accompanying diastolic dysfunction PLAN 1. Treatment of hypertensive heart disease Electronically signed by : Giovani Solorzano, 11/05/2020 13:20:09
== END 2020-11-05 15:49 | disposition home or self-care (01) ==
LOC: CATHLAB 08:52
PROVIDERS: PCP Family Medicine; Visit Provider Internal Medicine
DX: E11.9 Type 2 diabetes mellitus without complications (principal); E78.2 Mixed hyperlipidemia; R94.31 Abnormal electrocardiogram [ECG] [EKG]; R94.39 Abnormal result of other cardiovascular function study; Z95.0 Presence of cardiac pacemaker; I25.118 Atherosclerotic heart disease of native coronary artery with other forms of angina pectoris; I11.0 Hypertensive heart disease with heart failure; I50.32 Chronic diastolic (congestive) heart failure; Z79.84 Long term (current) use of oral hypoglycemic drugs; G47.33 Obstructive sleep apnea (adult) (pediatric); Z79.899 Other long term (current) drug therapy
CPT/HCPCS: 93458; 99152; C1725; C1769; J1644; Q9967

== ENCOUNTER → 2020-11-19 11:12 | Outpatient (CLI) | payer MEDICARE, SELFPAY ==
[2020-11-19 12:52] LABS: Chloride 101 mmol/L (98-107); Potassium 5.5 mmoL/L (3.5-5.1); Sodium 137 mmol/L (136-145)
[2020-11-19 12:55] LABS: Anion Gap 12.5 mEq/L (5-15); Blood Urea Nitrogen 23 mg/dl (7-17); Calcium 10.3 mg/dl (8.4-10.2); Carbon Dioxide 29 mmol/L (22.0-30.0); Estimated Glomerular Filt Rate 62 ml/min (>60); GFR (African American) 75 ML/MIN (>60); Glucose 220 mg/dl (74-100)
== END ==
PROVIDERS: Visit Provider Urology
DX: E78.2 Mixed hyperlipidemia (principal); I10 Essential (primary) hypertension; I51.9 Heart disease, unspecified; Z95.0 Presence of cardiac pacemaker
CPT/HCPCS: 36415; 80048

== ENCOUNTER → 2020-11-27 12:43 | Outpatient (CLI) | payer MEDICARE, SELFPAY ==
[2020-11-27 14:46] LABS: Chloride 101 mmol/L (98-107); Sodium 139 mmol/L (136-145)
[2020-11-27 14:47] LABS: Potassium 5.2 mmoL/L (3.5-5.1)
[2020-11-27 14:49] LABS: Blood Urea Nitrogen 15 mg/dl (7-17); Estimated Glomerular Filt Rate 62 ml/min (>60); GFR (African American) 75 ML/MIN (>60)
[2020-11-27 14:50] LABS: Anion Gap 13.2 mEq/L (5-15); Calcium 10.3 mg/dl (8.4-10.2); Carbon Dioxide 30 mmol/L (22.0-30.0); Glucose 236 mg/dl (74-100)
== END ==
PROVIDERS: PCP Family Medicine; Visit Provider Nurse Practitioner Family
DX: I10 Essential (primary) hypertension; E78.5 Hyperlipidemia, unspecified; E87.5 Hyperkalemia; Z95.0 Presence of cardiac pacemaker
CPT/HCPCS: 36415; 80048

== ENCOUNTER → 2020-12-04 09:55 | Outpatient (CLI) | payer MEDICARE, SELFPAY ==
[2020-12-04 11:31] LABS: Anion Gap 13.1 mEq/L (5-15); Blood Urea Nitrogen 21 mg/dl (7-17); Calcium 10.3 mg/dl (8.4-10.2); Carbon Dioxide 29 mmol/L (22.0-30.0); Chloride 102 mmol/L (98-107); Estimated Glomerular Filt Rate 62 ml/min (>60); GFR (African American) 75 ML/MIN (>60); Glucose 235 mg/dl (74-100); Potassium 5.1 mmoL/L (3.5-5.1); Sodium 139 mmol/L (136-145)
== END ==
PROVIDERS: Visit Provider Nurse Practitioner Family
DX: E87.5 Hyperkalemia (principal)
CPT/HCPCS: 36415; 80048

== ENCOUNTER → 2020-12-16 12:19 | Outpatient (CLI) | payer MEDICARE, SELFPAY ==
[2020-12-16 13:20] LABS: Anion Gap 13.9 mEq/L (5-15); Blood Urea Nitrogen 18 mg/dl (7-17); Calcium 10.3 mg/dl (8.4-10.2); Carbon Dioxide 30 mmol/L (22.0-30.0); Chloride 100 mmol/L (98-107); Estimated Glomerular Filt Rate 71 ml/min (>60); GFR (African American) 86 ML/MIN (>60); Glucose 276 mg/dl (74-100); Potassium 4.9 mmoL/L (3.5-5.1); Sodium 139 mmol/L (136-145)
[2020-12-16 13:30] LABS: NT Pro Brain Natriuretic Pep. 176 pg/mL (0-125)
== END ==
PROVIDERS: Visit Provider Physician Assistant
DX: E11.9 Type 2 diabetes mellitus without complications (principal); E78.2 Mixed hyperlipidemia; I10 Essential (primary) hypertension; R94.31 Abnormal electrocardiogram [ECG] [EKG]; Z95.0 Presence of cardiac pacemaker; R06.02 Shortness of breath; Z79.84 Long term (current) use of oral hypoglycemic drugs
CPT/HCPCS: 36415; 80048; 83880

== ENCOUNTER 2021-02-07 16:39 | Emergency (ER) | payer MEDICARE, SELFPAY ==
[2021-02-07 16:40] VITALS: BP 130/48; PULSE 70; RESP 20; TEMP 36.8; O2SAT 98; BMI 28.3
[2021-02-07 17:03] LABS: POC Glucose,Bedside 120 (70-110)
--- NOTE | 2021-02-07 17:22 | HMH.EDUTC ---
[facility] [place] Disposition Clinical Impression: Hypoglycemia Disposition: Home, Self-Care Condition on Discharge: Good Instructions: DI for Hypoglycemia Additional Instructions: Glucose is currently 150. Hemoglobin A1c is pending. Follow up with Dr Tellez next week. Until then, hold glimepiride for the weekend and do not take it. Eat small, frequent snacks/meals that contain complex carbohydrates and protein. If your sugar drops, drink juice, eat crackers, candy etc to bring it up but follow that with a more sustaining meal with protein and complex carbs. If your sugar is really low, I have sent a prescription for glucagon. If you need to use it, use it and then come to the ER for further management. Prescriptions: Glucagon,Human Recombinant [Glucagen] 1 mg IM ONCE PRN 1 Days #1 vial PRN Reason: hypoglycemia Transmission Status: Pending to [id number] Dextrose [Glucose Gel] 38 gm PO [id number] PRN 10 Days #30 gel..gram. PRN Reason: hypoglycemia Transmission Status: Pending to [id number] Referrals: Oracio Tellez MD [Primary Care Provider] - Time of Disposition: 18:01 Medical Decision Making - Sánchez Inquiry Pt receiving controlled substance: No Vital Signs: 02/07/21 16:40 Temperature 98.2 F Temperature Source Temporal Artery Scan Pulse Rate [Right Brachial] 70 Respiratory Rate 20 Blood Pressure [Right Arm] 130/48 L Blood Pressure Mean [Right Arm] 75 Blood Pressure Source [Right Arm] Automatic Cuff Blood Pressure Position [Right Arm] Sitting 02 Sat by Pulse Oximetry 98 Oxygen Delivery Method Room Air - Lab Data Lab results reviewed: Yes: I reviewed the patient's lab results. Lab Results 02/07/21 16:55: POC Glucose 120 H 02/07/21 17:05: Sodium 141, Potassium 3.8, Chloride 105, Carbon Dioxide 26, Anion Gap 13.8, BUN 17, Creatinine 0.90, Estimated Creat Clear 63, Estimated GFR 62, Est GFR ( Amer) 75, Glucose 150 H, Calcium 9.5, Total Bilirubin 0.2, AST 26, ALT 22, Alkaline Phosphatase 95, Total Protein 7.3, Albumin 4.5, Globulin 2.8, Albumin/Globulin Ratio 1.6 02/07/21 17:15: WBC 11.8 H, RBC 4.82, Hgb 12.5, Hct 40.0, MCV 82.9, MCH 25.9 L, MCHC 31.3 L, RDW 12.8, Plt Count 194, MPV 8.5, Neut % (Auto) 69.4, Lymph % (Auto) 22.6, [place] % (Auto) 4.3, Eos % (Auto) 3.2, Baso % (Auto) 0.6, Neut # (Auto) 8.2 H, Lymph # (Auto) 2.7, [place] # (Auto) 0.5, Eos # (Auto) 0.4, Baso # (Auto) 0.1 Result diagrams: 02/07/21 17:15 02/07/21 17:05 Orders (Tests/Meds): ORDERS Category Date Time Status Hemoglobin A1C Stat Lab 02/07/21 17:15 Received [facility] HPI - General Stated complaint: low blood sugar Time Seen by Provider: 02/07/21 17:22 Mode of Arrival: Ambulatory Source of Information: Patient Limitations: No Limitations Description of Symptoms (Recalled from Triage Doc. by RN): PATIENT STATES HER BLOOD SUGAR HAS BEEN REPEATEDLY DROPPING SINCE LAST NIGHT. AT LOWEST LAST NIGHT IT WAS 68 AND HAS GOTTEN DOWN TO 59 TODAY. 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 HEENT Symptoms (Recalled from RN notes): No Resp Symptoms (Recalled from RN notes): No Skin Symptoms (Recalled from RN notes): No MS Symptoms (Recalled from RN notes): No Functional Status (Recalled from RN notes): WNL - History of Present Illness Provider Complaint: Patient states that she has had problems with her sugar dropping since yesterday afternoon. She states that she ate lunch at the [employer] yesterday. Didn't feel well later that afternoon and she checked her sugar. It was in the 70s. She had some juice and crackers and it came up a bit. Later it went back down. She didn't eat a lot last night. Sugar was 92 this am then dropped to 68. She had been taking Metformin TID for several years and glimepiride in the AM for several years as well. She states that about 5 weeks [address] Dr Tellez and her HgA1c was 13, so he started her on Janumet to replace one of the Metformin doses. She has not had any trouble unt
[2021-02-07 17:29] LABS: Basophils # 0.1 K/mm3 (0-0.2); Basophils % 0.6 % (0.1-2.0); Eosinophils # 0.4 K/mm3 (0.0-0.4); Eosinophils % 3.2 % (0.1-12.0); Hemoglobin 12.5 g/dL (12.2-16.2); Lymphocytes # 2.7 K/mm3 (0.7-4.5); Lymphocytes % 22.6 % (10-50); Mean Corpuscular HGB Conc 31.3 g/dL (31.8-35.4); Mean Corpuscular Hemoglobin 25.9 pg (27.0-31.2); Mean Corpuscular Volume 82.9 fl (81-99); Mean Platelet Volume 8.5 fl (7.4-10.4); Monocytes # 0.5 K/mm3 (0.1-1.0); Monocytes % 4.3 % (1.7-9.3); Neutrophils # 8.2 K/mm3 (1.8-7.8); Neutrophils % 69.4 % (37.0-80.0); Platelet Count 194 K/mm3 (142-424); Red Blood Count 4.82 M/mm3 (4.20-5.40); Red Cell Distribution Width 12.8 % (11.5-17.5); White Blood Count 11.8 K/mm3 (4.8-10.8)
[2021-02-07 17:39] LABS: Alanine Aminotransferase 22 U/L (12-78); Albumin Level 4.5 g/dl (3.5-5.0); Albumin/Globulin Ratio 1.6 (1.1-1.8); Alkaline Phosphatase 95 U/L (38-126); Anion Gap 13.8 mEq/L (5-15); Aspartate Amino Transferase 26 U/L (14-36); Bilirubin,Total 0.2 mg/dl (0.2-1.3); Blood Urea Nitrogen 17 mg/dl (7-17); Calcium 9.5 mg/dl (8.4-10.2); Carbon Dioxide 26 mmol/L (22.0-30.0); Chloride 105 mmol/L (98-107); Creatinine Clearance Estimated 63 mL/min (50-200); Estimated Glomerular Filt Rate 62 ml/min (>60); GFR (African American) 75 ML/MIN (>60); Globulin 2.8 g/dL (1.3-3.2); Glucose 150 mg/dl (74-100); Potassium 3.8 mmoL/L (3.5-5.1); Sodium 141 mmol/L (136-145); Total Protein,Serum 7.3 g/dl (6.3-8.2)
[2021-02-07 18:03] VITALS: BP 130/48; PULSE 70; RESP 20; TEMP 36.8; O2SAT 98
[2021-02-07 18:57] LABS: Hemoglobin A1C 8.6 % (4.0-6.0)
== END 2021-02-07 18:05 | disposition home or self-care (01) ==
LOC: UTC 16:44 → ER 16:47 → UTC 16:50
PROVIDERS: Emergency Provider Physician Assistant; PCP Family Medicine
DX: E11.649 Type 2 diabetes mellitus with hypoglycemia without coma (principal); Z79.84 Long term (current) use of oral hypoglycemic drugs; E78.5 Hyperlipidemia, unspecified; Z95.0 Presence of cardiac pacemaker
CPT/HCPCS: 80053; 82962; 83036; 85025; 99202; G0463

== ENCOUNTER → 2021-04-19 11:09 | Outpatient (CLI) | payer MEDICARE, SELFPAY ==
--- NOTE | 2021-04-19 11:20 | XR_ITS ---
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 Views: 2 or more views. COMPARISON: No relevant prior studies available. FINDINGS: Bones/joints: Plantar and Achilles enthesophytes are seen. Mild midfoot degenerative changes. Mild degenerative changes at the ankle joint. No evidence of acute fracture dislocation or discrete bony destruction. Snook is angle is normal. Achilles shadow appear normal. Soft tissues: Normal. IMPRESSION: No acute findings
== END ==
PROVIDERS: PCP Family Medicine; Referring Provider Family Medicine; Visit Provider Family Medicine
DX: M79.671 Pain in right foot (principal)
CPT/HCPCS: 73650

== ENCOUNTER 2021-07-07 17:48 | Emergency (ER) | payer MEDICARE, SELFPAY ==
[2021-07-07 19:50] VITALS: BP 143/84; PULSE 68; RESP 19; TEMP 36.8; O2SAT 98; BMI 27.9
--- NOTE | 2021-07-07 20:23 | HMH.EDUTC ---
[facility] [place] Disposition Clinical Impression: Shingles Qualifiers: Herpes zoster complications: without complications Qualified Code(s): B02.9 - Zoster without complications Disposition: Home, Self-Care Condition on Discharge: Good Instructions: Shingles, DI for Shingles, Acyclovir Additional Instructions: Take medication as prescribed Use over the counter hydrocortisone cream for rash on arm Follow up with Family Doctor if no improvement or any worsening of symptoms Return if needed Straight to ER if any life threatening symptoms Prescriptions: Acyclovir 800 mg PO 5XDAY 7 Days #35 tab Transmission Status: Pending to [id number] Referrals: Oracio Tellez MD [Primary Care Provider] - As needed Time of Disposition: 20:38 Medical Decision Making - Sánchez Inquiry Pt receiving controlled substance: No Sánchez was queried for this patient: No Vital Signs: 07/07/21 19:50 Temperature 98.3 F Temperature Source Oral Pulse Rate [Right Brachial] 68 Respiratory Rate 19 Blood Pressure [Right Arm] 143/84 H Blood Pressure Mean [Right Arm] 103 Blood Pressure Source [Right Arm] Automatic Cuff Blood Pressure Position [Right Arm] Sitting 02 Sat by Pulse Oximetry 98 Oxygen Delivery Method Room Air Medical Decision Narrative: Medication discussed with pharmacy Discussed xray of foot/heel area and patient advised that she has already had one and they couldnt find anything that she would follow up with her PCP for further evaluation due to no known injury and did not want to repeat xray [facility] [place] HPI - General Stated complaint: BOTH ARM RASH SWELLING Time Seen by Provider: 07/07/21 20:23 Mode of Arrival: Ambulatory Source of Information: Patient Limitations: No Limitations Description of Symptoms (Recalled from Triage Doc. by RN): PATIENT C/O RASH AND SWELLING TO BILATERAL ARMS, RIGHT FOOT, AND CHIN X 2 DAYS HEENT Symptoms (Recalled from RN notes): No Resp Symptoms (Recalled from RN notes): No Skin Symptoms (Recalled from RN notes): No MS Symptoms (Recalled from RN notes): No Functional Status (Recalled from RN notes): WNL - History of Present Illness Provider Complaint: Patient states that she has been having rash that started on her right bend of her arm and she has been using hydrocortisone but not helped and continued to spread on her arm State that she also has a rash on her left lower jaw that feels like it is moving up the left side of her face that hurts and robles when she scratches it and has her face sore States that she has also had pain on and off for 1 month in her left heel and she has had xrays and they having found anything just wanting to have it looked at to see if it looks swollen - Related Data Home Medications Medication Instructions Recorded Confirmed aspirin 81 mg tablet,delayed 81 mg PO ONCE 12/27/17 02/03/21 release glimepiride 2 mg tablet 2 mg PO QAM 12/27/17 02/03/21 metformin 500 mg tablet 500 mg PO TID tab 10/22/20 02/03/21 rosuvastatin 20 mg tablet 20 mg PO DAILY 10/22/20 02/03/21 triamterene 37.5 0.5 tab PO QAM tab 12/16/20 02/03/21 mg-hydrochlorothiazide 25 mg tablet Previous Rx's Medication Instructions Recorded metoprolol succinate 25 mg 25 mg PO DAILY #30 tab 12/16/20 tablet,extended release 24 hr Dextrose [Glucose Gel] 38 gm PO [id number] PRN 10 Days #30 02/07/21 gel..gram. Glucagon,Human Recombinant 1 mg IM ONCE PRN 1 Days #1 vial 02/07/21 [Glucagen] Acyclovir 800 mg PO 5XDAY 7 Days #35 tab 07/07/21 Allergies Allergy/AdvReac Type Severity Reaction Status Date / Time No Known Allergies Allergy Verified 02/03/21 10:49 - Worker's Comp Is this a Worker's Comp case?: No H History - Hepatitis A Screen Drug use history?: No High risk sexual behaviors?: No History of sexually transmitted infection?: No Currently employed?: No Childcare worker?: No Do you have indoor plumbing?: Yes Do you have electricity?: Yes Attestation statement:: This p
[2021-07-07 20:33] VITALS: BP 143/84; PULSE 68; RESP 19; TEMP 36.8; O2SAT 98
== END 2021-07-07 20:44 | disposition home or self-care (01) ==
PROVIDERS: Emergency Provider Nurse Practitioner; PCP Family Medicine
DX: B02.9 Zoster without complications (principal); E11.9 Type 2 diabetes mellitus without complications; E78.5 Hyperlipidemia, unspecified
CPT/HCPCS: G0463; 99202

== ENCOUNTER → 2021-07-21 12:24 | Outpatient (CLI) | payer MEDICARE, SELFPAY ==
--- NOTE | 2021-07-21 12:38 | XR_ITS ---
PROCEDURE: XR CHEST PORTABLE CLINICAL HISTORY: COVID TESTING COMPARISON: CT CTAC CTA-CHEST from 09/13/2017 DX CXR CHEST(2 VIEWS-NOT PORTABLE) from 09/23/2017 CR CXR2V XR chest 2V from 02/02/2018 CR CXR2V XR chest 2V from 02/22/2019 FINDINGS: The cardiomediastinal silhouette and pulmonary vascularity are within normal limits. There is a bipolar pacemaker present from left subclavian approach. No acute bony abnormalities. IMPRESSION: No acute findings. Dictated by: Tj Haynes MD 07/21/2021 14:41 Tj Haynes MD in [place] 07/21/2021 14:41
[2021-07-21 13:27] LABS: Basophils # 0.1 K/mm3 (0-0.2); Basophils % 0.8 % (0.1-2.0); Eosinophils # 0.4 K/mm3 (0.0-0.4); Eosinophils % 3.5 % (0.1-12.0); Hematocrit 40.2 % (37.0-47.0); Hemoglobin 12.9 g/dL (12.2-16.2); Lymphocytes % 26.2 % (10-50); Mean Corpuscular HGB Conc 32.1 g/dL (31.8-35.4); Mean Corpuscular Hemoglobin 26.8 pg (27.0-31.2); Mean Corpuscular Volume 83.6 fl (81-99); Mean Platelet Volume 9.8 fl (7.4-10.4); Monocytes # 0.6 K/mm3 (0.1-1.0); Monocytes % 5.5 % (1.7-9.3); Neutrophils # 7.2 K/mm3 (1.8-7.8); Neutrophils % 64.1 % (37.0-80.0); Platelet Count 169 K/mm3 (142-424); Red Blood Count 4.81 M/mm3 (4.20-5.40); Red Cell Distribution Width 13.2 % (11.5-17.5); White Blood Count 11.3 K/mm3 (4.8-10.8)
== END ==
PROVIDERS: PCP Family Medicine; Visit Provider Nurse Practitioner Family
DX: Z20.822 Contact with and (suspected) exposure to COVID-19 (principal)
CPT/HCPCS: 36415; 71045; 85025; U0003

== ENCOUNTER → 2021-08-21 14:13 | Outpatient (CLI) | payer MEDICARE, SELFPAY ==
--- NOTE | 2021-08-21 14:25 | XR_ITS ---
PROCEDURE: XR FOOT WT BEARING RT 3V CLINICAL INDICATION: pain, achilles tendonitis COMPARISON: No exams were available for comparison FINDINGS: No fracture or dislocation. No lytic or blastic change. There is normal mineralization. Minimal osteoarthritic changes are present involving the 1st metatarsophalangeal joint. There is mild prominence of the joint space the PIP of the 4th digit. There is a small calcaneal spur and calcaneal enthesophyte at the Achilles insertion. Kager's fat pad is preserved. Small spur projects distally at the posterior aspect of the navicular Other findings:None. IMPRESSION: As above, no acute finding Dictated by: Tj Haynes MD 08/21/2021 17:46 Tj Haynes MD in [place] 08/21/2021 17:46
--- NOTE | 2021-08-21 14:25 | XR_ITS ---
PROCEDURE: XR ANKLE WT BEARING RT MIN 3V CLINICAL INDICATION: Achilles pain/Ankle pain COMPARISON: No exams were available for comparison FINDINGS: Ankle mortise is preserved. Talar dome has an unremarkable appearance. Small calcific density is present at the tip of the medial malleolus and could be due to an old fracture or ununited ossicle. There is a small calcaneal spur and small Achilles enthesophyte. Kager's fat pad is preserved. IMPRESSION: As above, no acute finding Dictated by: Tj Haynes MD 08/21/2021 17:49 Tj Haynes MD in [place] 08/21/2021 17:49
== END ==
PROVIDERS: PCP Family Medicine; Visit Provider Podiatrist
DX: M76.61 Achilles tendinitis, right leg (principal)
CPT/HCPCS: 73610; 73630

== ENCOUNTER → 2021-08-26 10:41 | Outpatient (CLI) | payer MEDICARE, SELFPAY ==
--- NOTE | 2021-08-26 10:43 | MM_ITS ---
PROCEDURE: MM DIG SCREENING MAMM BI W/CAD Digital Breast Tomosynthesis Included CLINICAL INDICATION: SCREENING There is no personal or family history of breast cancer. COMPARISON: MG DIGMAMMS MAMMOGRAM SCREEN-VMWARE ADMINISTRATOR N/C from 03/07/2008 MG DMSB DIG MAMM-SCREEN CAYLA W/CAD from 03/30/2017 MG MM DIG SCREENING MAMM BI W/CAD from 07/15/2020 TECHNIQUE: Standard CC and MLO images and 3D Tomosynthesis was obtained. R2 CAD reviewed. FINDINGS: Moderate scattered fibroglandular densities are seen throughout both breasts and the findings are bilateral and symmetrical. There are couple of benign-appearing microcalcifications in each breast. There is no new or suspicious lesion in either breast and no suspicious microcalcifications. IMPRESSION: Fibrofatty parenchyma with no suspicious lesions seen BI-RAD Category: 2 Benign Finding(s) FOLLOW-UP: 1YR 1 Year Follow-up (A letter has been sent to the patient regarding results of the study.) Dictated by: Dr. Henry Gilman MD 08/29/2021 15:31 Dr. Henry Gilman MD in [place] 08/29/2021 15:31
== END ==
PROVIDERS: PCP Family Medicine; Visit Provider Family Medicine
DX: Z12.31 Encounter for screening mammogram for malignant neoplasm of breast (principal)
CPT/HCPCS: 77063; 77067

== ENCOUNTER 2021-11-07 15:00 | Outpatient (RCR) | payer MEDICARE, SELFPAY ==
--- NOTE | 2021-10-06 09:36 | HMH.PTOPEV ---
PT Outpatient Evaluation Rehab PT Outpatient Evaluation Start: 10/06/21 09:26 Freq: Status: Active Protocol: Document 10/06/21 09:26 SHERI (Rec: 10/06/21 09:35 SHERI [id number]) Electronically Signed By Mario Graham, PT 10/06/21 09:26 Outpatient Therapy Subjective History Subjective History Pt reports insidious onset right heel pain beginning in February/March. Pt reports s/s in heel/achilles progressively got worse until 'I started wearing this boot in Pt reports improved s/s over the last ~month, 'dull ache, in my heel, heydi on the side of my foot'. Pt localizes s/s to achilles insertion and peroneal tendon area. Chief Complaint Pain Symptom Type Ache,Dull Symptoms Relieved By Rest/Positioning,Heat Symptoms Aggravated By Standing,Walking Prior Functional Limitations Housework,Standing,Walking Current Functional Limitations Housework,Standing,Walking Symptom Description Constant but Variable Level of pain today (0-10) 5 Pain scale - at its best (0-10) 3 Pain scale - at its worst (0-10) 6 Ankle/Foot Eval Gait Observation General Gait Pattern Observation Antalgic Gait Palpation Tenderness right Ankle/Foot Palpation Findings Tenderness Ankle/Foot Palpation Overall Comment achilles insertion 3/4, peroneal tendons 3/4 ROM Ankle/Foot Dorsiflexion w/Knee Extended 0-10 Active Range Motion (degrees) Ankle/Foot Plantar Flexion Active Range 0-55 of Motion (degrees) Ankle/Foot Eversion Active Range of 0-20 Motion (degrees) Ankle/Foot Inversion Active Range of 0-40 Motion (degrees) MMT Ankle Dorsiflexion Strength Grade 4 Good Ankle Plantarflexion Strength Grade 4 Good Foot Eversion Strength Grade 4- Good- Foot Inversion Strength Grade 4- Good- Outpatient Therapy Assessment Impairments Problems/Impairmments Palpation Tenderness,Impaired Range of Motion,Impaired Strength,Impaired Gait Pattern ,Impaired Walking,Impaired Standing,Impaired Household Care,Subjective C/O Pain, Impaired Self Care/Self Management Prognosis Rehab Potential Good Clinical Impression Consistent with Diagnosis Yes Short Term Goals Number of Weeks 4 Decreased P
--- NOTE | 2021-11-05 11:29 | HMH.RHREAS ---
Rehab Reassessment Rehab OP Re-assessment Start: 11/05/21 10:30 Freq: Status: Active Protocol: Document 11/05/21 10:30 SHERI (Rec: 11/05/21 11:29 SHERI [id number]) Electronically Signed By Mario Graham, PT 11/05/21 10:30 Rehab Re-assessment Subjective Subjective Pt reports 0-2/10 right achilles area pain on VAS, and feels 100% better overall since I eval. Objective Objective Notes GAIT: AMBULATION WFL ON LEVEL TERRAIN W/O A.D. AROM: RIGHT ANKLE DF 0-14, PF 0-62, INV 0-41, EVR 0-26 MMT: RIGHT ANKLE DF 4+/5, PF 4 -4+/5, INV 4+/5, EVR 4+/5 TTP: RIGHT ANKLE ACHILLES INSERTION/TENDON 11/25 Assessment Progress Assessment Progressing as Expected Assessment Notes PT EXHIBITS SIGNIFICANT OBJECTIVE PROGRESS SINCE I EVAL WITH IMPROVEMENTS IN GATI , STRENGTH, ROM, AND TTP Patient goals met STG'S 08/01 LTG'S 06/30 Goals Not Met STG'S 12/01, LTG'S 11/30 Plan Plan Pt to continue w/skilled P.T. to make further improvements in right ankle swelling, strength, and ambulation on unlevel terrain to allow for optimal function Frequency of Therapy 1-2x/wk Duration of therapy 1-2wks Time and Billing Re-Eval Time 15 Re-Eval Billing Units 1 PHYSICIAN CERTIFICATION: I certify the specified therapy services for Edyta Christian are required, authorized, and reviewed every 30 days.
== END 2021-11-07 15:05 | disposition home or self-care (01) ==
LOC: PT 15:00
PROVIDERS: PCP Family Medicine; Visit Provider Podiatrist
DX: M76.61 Achilles tendinitis, right leg (principal); M25.571 Pain in right ankle and joints of right foot; M25.371 Other instability, right ankle; M77.31 Calcaneal spur, right foot; R60.0 Localized edema
CPT/HCPCS: 97033; 97035; 97110; 97163; 97164

== ENCOUNTER → 2021-12-31 10:45 | Outpatient (CLI) | payer MEDICARE, SELFPAY ==
--- NOTE | 2021-12-31 10:46 | US_ITS ---
FINAL REPORT CLINICAL HISTORY: Achilles tendon evaluation, pain FINDINGS: Sonographic images of the right heel pad were obtained for the palpable abnormality. No mass, cyst, or abnormal fluid collection is identified. IMPRESSION: No focal abnormality identified. If symptoms persist, MRI may be helpful. Reviewed, Interpreted and Dictated by Deon Garcia III, MD Transcribed by Lyly Harvey Authenticated by Deon Garcia III, MD on 12/31/2021 03:23:[address] [facility]
== END ==
PROVIDERS: PCP Family Medicine; Visit Provider Podiatrist
DX: M76.61 Achilles tendinitis, right leg (principal)
CPT/HCPCS: 76882

== ENCOUNTER 2022-11-12 08:28 | Inpatient (IN) | payer MEDICARE, SELFPAY ==
[2022-11-12] VITALS (11 sets, daily range): BP systolic 107–166; BP diastolic 44–73; PULSE 70–89; RESP 17–23; TEMP 36.8–37.7; O2SAT 91–100; BMI 27.4; BMI 27.3
--- NOTE | 2022-11-12 09:22 | XR_ITS ---
FINAL REPORT CLINICAL HISTORY: productive cough, fever COMPARISON: July 21, 2021 FINDINGS: Two views of the chest were obtained. There is a left subclavian pacemaker. The heart size and pulmonary vascularity are within normal limits. The mediastinum is normal. There is new right middle lobe opacity. There is no pneumothorax. The bony thorax is intact. IMPRESSION: New right middle lobe pneumonia. Reviewed, Interpreted and Dictated by Deon Garcia III, MD Transcribed by Tammy Billingsley Authenticated and [facility]
[2022-11-12 09:38] LABS: Microscopic, Urine URINE MICROSCOPIC (MICROSCOPIC)
[2022-11-12 09:38] LABS: Coronavirus 19, PCR Not Detected (NotDetected); Influenza A, PCR Not Detected (NotDetected); Influenza B, PCR Not Detected (NotDetected)
[2022-11-12 09:42] LABS: Appearance,Urine CLEAR (Clear); Bilirubin,Urine Negative (Negative); Blood, Urine TRACE-I (Negative); Color,Urine YELLOW (Yellow); Glucose,Urine (UA) 3+ (Negative); Ketones,Urine 1+ (Negative); Leukocyte Esterase,Urine Negative (Negative); Nitrate,Urine Negative (Negative); PH,Urine 5.5 (5.0-8.5); Protein,Urine TRACE (Negative); Specific Gravity, Urine 1.015 (1.005-1.030)
--- NOTE | 2022-11-12 09:47 | PC.NURSE ---
pt to radiology via
--- NOTE | 2022-11-12 09:52 | PC.NURSE ---
PT RETURNED FROM XR
[2022-11-12 09:54] LABS: Bacteria,Urine Trace /lpf; Mucus,Urine 1+ /lpf; RBC,Urine Occasional #/hpf (0-3)
--- NOTE | 2022-11-12 10:02 | PC.NURSE ---
DR. DURAN AT BEDSIDE
[2022-11-12 10:05] LABS: Chloride 103 mmol/L (98-107); Sodium 139 mmol/L (136-145)
[2022-11-12 10:07] LABS: Blood Urea Nitrogen 20 mg/dl (7-17); Creatinine Clearance Estimated 49 mL/min (50-200); Estimated Glomerular Filt Rate 44 ml/min (>60); GFR (African American) 53 ML/MIN (>60)
[2022-11-12 10:08] LABS: Alanine Aminotransferase 31 U/L (12-78); Albumin Level 4.3 g/dl (3.5-5.0); Albumin/Globulin Ratio 1.4 (1.1-1.8); Alkaline Phosphatase 116 U/L (38-126); Aspartate Amino Transferase 34 U/L (14-36); Bilirubin,Total 1.4 mg/dl (0.2-1.3); Carbon Dioxide 24 mmol/L (22.0-30.0); Globulin 3.1 g/dL (1.3-3.2); Total Protein,Serum 7.4 g/dl (6.3-8.2)
[2022-11-12 10:09] LABS: Calcium 9.8 mg/dl (8.4-10.2); Glucose 216 mg/dl (74-100)
[2022-11-12 10:16] LABS: Basophils # 0.1 K/mm3 (0-0.2); Basophils % 0.3 % (0.1-2.0); Eosinophils # 0.1 K/mm3 (0.0-0.4); Eosinophils % 0.4 % (0.1-12.0); Hematocrit 40.4 % (37.0-47.0); Hemoglobin 12.8 g/dL (12.2-16.2); Lymphocytes # 1.5 K/mm3 (0.7-4.5); Lymphocytes % 4.7 % (10-50); Mean Corpuscular HGB Conc 31.6 g/dL (31.8-35.4); Mean Corpuscular Hemoglobin 26.1 pg (27.0-31.2); Mean Corpuscular Volume 82.7 fl (81-99); Mean Platelet Volume 9.7 fl (7.4-10.4); Monocytes % 3.3 % (1.7-9.3); Neutrophils # 29.1 K/mm3 (1.8-7.8); Neutrophils % 91.3 % (37.0-80.0); Platelet Count 194 K/mm3 (142-424); Red Blood Count 4.89 M/mm3 (4.20-5.40); Red Cell Distribution Width 14.2 % (11.5-17.5); White Blood Count 31.9 K/mm3 (4.8-10.8)
[2022-11-12 10:18] LABS: MANUAL DIFFERENTIAL MANUAL DIFFERENTIAL (MANUAL DIFF)
--- NOTE | 2022-11-12 10:22 | HMH.EDGENADL ---
Discharge Plan Disposition Patient Disposition: Admitted As Inpatient Condition: Fair Chief Complaint: Upper Respiratory Infection Prescriptions Prescriptions: No Action aspirin [Adult Low Dose Aspirin] 81 mg tablet,delayed release (DR/EC) 81 mg PO ONCE metformin 500 mg tablet 1,000 mg PO DAILY rosuvastatin [Crestor] 20 mg tablet 20 mg PO DAILY Janumet 50-500 mg tablet 1 tab PO ONCE Label Comments: TAKE 1 TABLET BY MOUTH IN THE MORNING albuterol sulfate 90 mcg/actuation HFA aerosol inhaler 1 puff INHALATION ONCE PRN (Reason: BREATHING) Label Comments: INHALE 2 PUFFS BY MOUTH THREE TIMES DAILY AND EVERY 2 HOURS NEEDED triamterene-hydrochlorothiazid 37.5-25 mg tablet See Rx Instructions .ROUTE .COMPLEX Rx Instructions: TAKE 1 TABLET BY MOUTH IN THE MORNING FOR HIGH BLOOD PRESSURE metoprolol succinate [Toprol XL] 25 mg tablet extended release 24 hr 25 mg PO DAILY Discharge ED Provider: Hema Huff General Adult HPI General Chief complaint: Upper Respiratory Infection Stated complaint: Rt side pain, vomiting Time Seen by Provider: 11/12/22 08:54 Mode of Arrival: Wheelchair Source of Information: Patient Limitations: No Limitations Description of Symptoms (Recalled from ER Triage Doc. by RN): PT REPORTS COUGH THAT STARTED LAST NIGHT, HAD ONE EPISODE OF VOMITING. C/O RIGHT SIDED SHOULDER/RIB PAIN AFTER COUGHING History of Present Illness HPI narrative: This is a 72-year-old female with history of hypertension, ESA, diabetes, hypertension, hyperlipidemia, arrhythmia status post pacemaker defibrillator placement who is presenting with shortness of breath, vomiting, fevers and chills, cough. Patient states that 1 night prior to arrival on 11/11, she began vomiting violently after dinner. Nonbloody/nonbilious vomiting 10+ times. Since that time, she also began having fevers, chills, no discrete measured temperature, with associated cough productive of green and brown sputum. Denies confusion, altered mental status, neurologic deficits, recent sick contacts, but since the morning of 11/12, began developing right-sided chest wall pain that is worse with application of pressure. Pain is 10 out of 10, does not radiate, worse with cough. No interventions have been tried to make this better. Related Data Home Medications Medication Instructions Recorded Confirmed aspirin 81 mg tablet,delayed 81 mg PO ONCE CAD 12/27/17 11/12/22 release (Adult Low Dose Aspirin) rosuvastatin 20 mg tablet (Crestor) 20 mg PO DAILY Cholesterol 10/22/20 11/12/22 metformin 500 mg tablet 1,000 mg PO DAILY Diabetes 08/11/21 11/12/22 sitagliptin phosphate 50 1 tab PO ONCE Diabetes 08/11/21 11/12/22 mg-metformin 500 mg tablet (Janumet) albuterol sulfate 90 mcg/actuation 1 puff inhalation ONCE PRN 02/23/22 11/12/22 aerosol inhaler BREATHING metoprolol succinate 25 mg 25 mg PO DAILY Heart rhythm 11/12/22 11/12/22 tablet,extended release 24 hr (Toprol XL) triamterene 37.5 See Rx Instructions .Route 11/12/22 11/12/22 mg-hydrochlorothiazide 25 mg tablet .COMPLEX High blood pressure Allergies Allergy/AdvReac Type Severity Reaction Status Date / Time No Known Allergies Allergy Verified 09/14/22 08:36 [facility] Disclaimer: The information contained in this section may have been updated after the patient was seen, as this information can be updated by other users. Medical History (Updated 09/14/22 @ 08:51 by Poornima Marie RN) Abnormal cardiovascular stress test Abnormal EKG Atypical angina Chest wall pain Exertional dyspnea Social History Smoking Status: Never smoker second hand exposure: No alcohol intake: never substance use type: denies use current occupational status: other Travel in the last 8 weeks: Inside the [place] household members: spouse housing: house current occupationa
--- NOTE | 2022-11-12 10:23 | PC.NURSE ---
Called Dr. Castillo office regarding patient admission, Dr. Wolfe is radiotelephone operator for him today.
--- NOTE | 2022-11-12 10:24 | PC.NURSE ---
Dr. Huff speaking with Dr. Wolfe at this time
[2022-11-12 10:34] LABS: Hypochromasia 1+; Lymphocytes % 7 % (10-50); Monocytes % 3 % (2-9); Neutrophils % 89 % (42-76); Platelet Estimate Normal; Total Cells Counted 100
[2022-11-12 10:48] LABS: C-Reactive Protein 138.2 mg/L (0-4)
[2022-11-12 11:23] LABS: Mycoplasma Pneumo IGM (Rapid) Non-Reactive (Non-Reactiv)
--- NOTE | 2022-11-12 11:30 | ECG_ITS ---
APPROVED REPORT Exam: Resting ECG HR:74 bpm ECG Measurements Heart Rate 74 AXES IA 173 P 82 QRSd 106 QRS 49 QT 406 T 140 QTc 433 Conclusion SINUS RHYTHM Late R wave progression ABNORMAL ECG UNCONFIRMED REPORT Electronically signed by : Felipe Gonsalez MD 11/12/2022 20:17:39
--- NOTE | 2022-11-12 11:53 | PC.NURSE ---
PT UPDATED ON POC AT THIS TIME. NO NEEDS VOICED
--- NOTE | 2022-11-12 11:58 | PC.NURSE ---
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
--- NOTE | 2022-11-12 12:01 | PC.NURSE ---
pt sleeping on ED stretcher at this time with spouse at BS. call light within reach
--- NOTE | 2022-11-12 12:16 | EXP.HP ---
History of Present Illness *History of present illness: This 72-year-old white female started with symptoms last night. She states that the day before she was symptom-free. Last night she developed fever, cough, congestion, and chills. She has had sputum production. She was evaluated in the emergency room and found to have a right middle lobe pneumonia. The following is the emergency room narrative : this is a 72-year-old female with history of hypertension, ESA, diabetes, hypertension, hyperlipidemia, arrhythmia status post pacemaker defibrillator placement who is presenting with shortness of breath, vomiting, fevers and chills, cough.? Patient states that 1 night prior to arrival on 11/11, she began vomiting violently after dinner.? Nonbloody/nonbilious vomiting 10+ times.? Since that time, she also began having fevers, chills, no discrete measured temperature, with associated cough productive of green and brown sputum.? Denies confusion, altered mental status, neurologic deficits, recent sick contacts, but since the morning of 11/12, began developing right-sided chest wall pain that is worse with application of pressure.? Pain is 10 out of 10, does not radiate, worse with cough.? No interventions have been tried to make this better. [facility] Disclaimer: The information contained in this section may have been updated after the patient was seen, as this information can be updated by other users. Medical History (Updated 11/12/22 @ 12:24 by Oracio Tellez MD) Abnormal cardiovascular stress test Abnormal EKG Atypical angina Chest wall pain Exertional dyspnea Pleuritis Pneumonia Social History Smoking Status: Never smoker second hand exposure: No alcohol intake: never substance use type: denies use current occupational status: other Travel in the last 8 weeks: Inside the [place] household members: spouse housing: house current occupational exposures/hazards: No caffeine: Yes Review of Systems Review of Systems Review of systems:: pertinent systems reviewed and negative unless documented below Constitutional Constitutional: Denies body ache(s), Reports chills and Reports fever(s) Eyes Eyes: Reports system reviewed and no additional complaints, except as documented ENT Ears, Nose, Mouth, and Throat: Reports system reviewed and no additional complaints, except as documented and Denies dysphagia *Cardiovascular Cardiovascular: Reports chest pain (Right-sided chest pain. Pain with inspiration.) *Respiratory Respiratory: Reports as per HPI, Reports chest congestion, Reports cough and Reports pain with cough *Gastrointestinal Gastrointestinal: Denies abdominal pain and Denies dysphagia *Genitourinary Genitourinary: Reports system reviewed and no additional complaints, except as documented and Denies urinary frequency *Musculoskeletal Musculoskeletal: Reports system reviewed and no additional complaints, except as documented Integumentary/Breasts Skin/Breast: Reports system reviewed and no additional complaints, except as documented *Neurologic Neurologic: Reports system reviewed and no additional complaints, except as documented Psychiatric Psychiatric: Reports system reviewed and no additional complaints, except as documented Endocrine Endocrine: Reports system reviewed and no additional complaints, except as documented Hematologic/Lymphatic Hematologic/Lymphatic: Reports system reviewed and no additional complaints, except as documented Allergic/Immunologic Allergic/Immunologic: Reports system reviewed and no additional complaints, except as documented Meds Home Medications and Allergies Home Medications Medication Instructions Recorded Confirmed Type aspirin 81 mg tablet,delayed 81 mg PO ONCE CAD 12/27/17 11/12/22 History release (Adult Low Dose Aspirin) rosuvastatin 20 mg tablet (Crestor) 20 mg PO DAILY Cholesterol 10/22/20 11/12/22 History
--- NOTE | 2022-11-12 12:53 | PC.NURSE ---
attempted to call report on second floor, waiting regional airline pilot back, receiving nurse on phone at this time
--- NOTE | 2022-11-12 13:00 | HMH.PHAINT1 ---
Pharmacy Intervention Comments: SPOKE WITH CLAY FROM DR HOLDER'S OFFICE REGARDING HOME MEDICATIONS FOR MRS SIMONS. PER CLAY, SHE REVIEWED ALL THE HOME MEDS WITH DR HOLDER AND HE WISHES TO HAVE ALL HER HOME MEDICATIONS RESTARTED
--- NOTE | 2022-11-12 13:22 | PC.NURSE ---
report called to reuben hanson on second floor at this time, states she will send staff down to transport pt
--- NOTE | 2022-11-12 22:53 | CT_ITS ---
PROCEDURE INFORMATION: Exam: CTA Chest With Contrast Exam date and time: 11/12/2022 11:13 PM Age: 72 years old Clinical indication: Abnormal findings; Abnormal diagnostic tests; Elevated d-dimer; Prior surgery; Additional info: Pleurisy, elevated d-dimer TECHNIQUE: Imaging protocol: Computed tomographic angiography of the chest with contrast. 3D rendering (Not supervised by radiologist): MIP and/or 3D reconstructed images were created by the technologist. Radiation optimization: All CT scans at this facility use at least one of these dose optimization techniques: automated exposure control; mA and/or kV adjustment per patient size (includes targeted exams where dose is matched to clinical indication); or iterative reconstruction. Contrast material: ISOVUE; Contrast volume: 70 ml; Contrast route: INTRAVENOUS (IV); COMPARISON: [facility] CTA-CHEST 09/13/2017 8:00 AM FINDINGS: Tubes, catheters and devices: Pacemaker is noted entering via the left subclavian vein. Pulmonary arteries: Normal. No pulmonary emboli. Aorta: Unremarkable. No aortic aneurysm. No aortic dissection. Lungs: There is near-complete consolidation throughout the right middle lobe. Pleural spaces: Unremarkable. No pneumothorax. No pleural effusion. Heart: Unremarkable. Mild cardiomegaly. No pericardial effusion. Lymph nodes: There are few nonspecific right paratracheal lymph nodes. Diaphragm: A small hiatal hernia is present. Gallbladder and bile ducts: The gallbladder is absent. There is no biliary ductal dilation. Bones/joints: Unremarkable. No acute fracture. Soft tissues: Unremarkable. IMPRESSION: 1. Extensive right middle lobe pneumonia. 2. There is no pulmonary embolus or acute aortic abnormality. 3. Other findings as detailed.
[2022-11-13] VITALS: BP 88/39; PULSE 71; RESP 20; TEMP 36.8; O2SAT 92
[2022-11-13 04:00] VITALS: BP 115/53; PULSE 69; RESP 18; TEMP 36.4; O2SAT 93; BMI 27.3
--- NOTE | 2022-11-13 05:20 | PC.NURSE ---
Pt. given torodol iv last night for right sided lung pain. CT of chest sowed extensive right middle lobe PNA. IV abx given last night and pt. has rested comfortably.
[2022-11-13 07:13] LABS: Basophils # 0.1 K/mm3 (0-0.2); Basophils % 0.4 % (0.1-2.0); Eosinophils # 0.2 K/mm3 (0.0-0.4); Eosinophils % 0.6 % (0.1-12.0); Hematocrit 32.4 % (37.0-47.0); Lymphocytes # 2.8 K/mm3 (0.7-4.5); Lymphocytes % 10.2 % (10-50); Mean Corpuscular HGB Conc 32.7 g/dL (31.8-35.4); Mean Corpuscular Hemoglobin 26.9 pg (27.0-31.2); Mean Corpuscular Volume 82.4 fl (81-99); Mean Platelet Volume 9.6 fl (7.4-10.4); Monocytes # 0.8 K/mm3 (0.1-1.0); Monocytes % 3.1 % (1.7-9.3); Neutrophils # 23.2 K/mm3 (1.8-7.8); Neutrophils % 85.8 % (37.0-80.0); Platelet Count 153 K/mm3 (142-424); Red Blood Count 3.94 M/mm3 (4.20-5.40); Red Cell Distribution Width 14.2 % (11.5-17.5)
[2022-11-13 07:16] LABS: Chloride 103 mmol/L (98-107); Hemoglobin 10.7 g/dL (12.2-16.2); MANUAL DIFFERENTIAL MANUAL DIFFERENTIAL (MANUAL DIFF); Potassium 4.3 mmoL/L (3.5-5.1); Sodium 136 mmol/L (136-145)
[2022-11-13 07:18] LABS: Blood Urea Nitrogen 33 mg/dl (7-17); Creatinine Clearance Estimated 42 mL/min (50-200); Estimated Glomerular Filt Rate 37 ml/min (>60); GFR (African American) 45 ML/MIN (>60)
[2022-11-13 07:19] LABS: Alanine Aminotransferase 23 U/L (12-78); Albumin Level 3.5 g/dl (3.5-5.0); Albumin/Globulin Ratio 1.2 (1.1-1.8); Alkaline Phosphatase 105 U/L (38-126); Anion Gap 12.3 mEq/L (5-15); Aspartate Amino Transferase 25 U/L (14-36); Bilirubin,Total 0.7 mg/dl (0.2-1.3); Calcium 9.2 mg/dl (8.4-10.2); Carbon Dioxide 25 mmol/L (22.0-30.0); Globulin 2.9 g/dL (1.3-3.2); Glucose 128 mg/dl (74-100); Total Protein,Serum 6.4 g/dl (6.3-8.2)
[2022-11-13 07:49] LABS: Lymphocytes % 12 % (10-50); Monocytes % 4 % (2-9); Neutrophils % 84 % (42-76); Platelet Estimate Slight Decrease; RBC Morphology Normal; Total Cells Counted 100
[2022-11-13 08:00] VITALS: BP 123/51; PULSE 67; RESP 18; TEMP 36.7; O2SAT 94
--- NOTE | 2022-11-13 08:53 | EXP.ACUTE.PN ---
Subjective *Date: 11/13/22 *Time: 08:53 Interval history: Her main complaint remains right sided pain, presumably pleuritic. Pain with inspiration. She denies shortness of breath. Her O2 sats have been in the low 90s. Her blood pressure ran low during the night. She was not given continuous IV fluids on admission. She did receive a fluid run. Levofloxacin was ordered on admission. Last evening I added Rocephin. Sputum and Gram stains were ordered on admission. Today I have ordered IV fluids. I ordered incentive spirometry. We will obtain a respiratory panel. Medical Exam Vital signs and Labs for Last 24 Hours: Vital Signs Temp Pulse Pulse Resp BP BP Pulse Ox 11/13/22 08:00 98.1 F 67 18 123/51 L 94 L 11/13/22 04:00 97.6 F 69 18 115/53 L 93 L 11/13/22 00:00 98.2 F 71 20 88/39 L 92 L 11/12/22 20:00 95 11/12/22 20:00 98.5 F 89 20 118/44 L 91 L 11/12/22 15:42 98.2 F 77 17 116/73 93 L 11/12/22 13:52 99.8 F H 79 23 131/58 L 92 L 11/12/22 13:28 98.3 F 72 18 113/52 L 11/12/22 12:30 73 113/52 L 96 11/12/22 12:00 70 130/47 L 96 11/12/22 11:30 75 125/44 L 99 11/12/22 11:00 73 107/47 L 95 11/12/22 10:31 70 124/52 L 95 11/12/22 10:00 70 146/55 H 98 Intake and Output 11/12/22 11/13/22 11/13/22 19:59 03:59 11:59 Intake Total 360 / 410 50 / 410 Output Total 0 / 0 Balance 360 / 410 50 / 410 Intake: Intake, Oral Amount 360 / 360 Infusion Intake 50 / 50 Ceftriaxone Sodium 1 gm In 0.9 50 / 50 % Sodium Chloride 50 ml @ 100 mls/hr IV Q24H [facility] Rx#:[id number] Output: Output, Urine Amount 0 / 0 Other: Number of Unmeasured Voids 1 Weight 164 lb 2 oz 164 lb 3 oz Patient Weight 11/13/22 11:59 Weight 164 lb 3 oz Laboratory Results - last 24 hr 11/12/22 09:17: Urine Color Yellow, Urine Appearance Clear, Urine pH 5.5, Ur Specific [place] 1.015, Urine Protein Trace, Urine Glucose (UA) 3+, Urine Ketones 1+, Urine Blood Trace-i, Urine Nitrate Negative, Urine Bilirubin Negative, Urine Urobilinogen 1.0, Ur Leukocyte Esterase Negative, Urine RBC Occasional, Urine WBC None, Ur Squamous Epith Cells 3-5, Urine Bacteria Trace, Urine Mucus 1+ 11/12/22 09:25: SARS-CoV-2 (PCR) Not detected, Influenza A Untype (PCR) Not detected, Influenza Type B (PCR) Not detected 11/12/22 09:32: WBC 31.9 H*, RBC 4.89, Hgb 12.8, Hct 40.4, MCV 82.7, MCH 26.1 L, MCHC 31.6 L, RDW 14.2, Plt Count 194, MPV 9.7, Neut % (Auto) 91.3 H, Lymph % (Auto) 4.7 L, [place] % (Auto) 3.3, Eos % (Auto) 0.4, Baso % (Auto) 0.3, Neut # (Auto) 29.1 H, Lymph # (Auto) 1.5, [place] # (Auto) 1.0, Eos # (Auto) 0.1, Baso # (Auto) 0.1, Total Counted 100, Neutrophils % (Manual) 89 H, Band Neutrophils % 1.0, Lymphocytes % (Manual) 7 L, Monocytes % (Manual) 3, Platelet Estimate Normal, Hypochromasia 1+ 11/12/22 09:32: Sodium 139, Potassium 4.0, Chloride 103, Carbon Dioxide 24, Anion Gap 16.0 H, BUN 20 H, Creatinine 1.20 H, Estimated Creat Clear 49, Estimated GFR 44 L, Est GFR ( Amer) 53 L, Glucose 216 H, Calcium 9.8, Total Bilirubin 1.4 H, AST 34, ALT 31, Alkaline Phosphatase 116, Total Protein 7.4, Albumin 4.3, Globulin 3.1, Albumin/Globulin Ratio 1.4 11/12/22 09:32: Lactate 2.0 11/12/22 09:32: C-Reactive Protein 138.2 H 11/12/22 09:32: Mycoplasma pneumon IgM Non-reactive 11/13/22 06:25: Sodium 136, Potassium 4.3, Chloride 103, Carbon Dioxide 25, Anion Gap 12.3, BUN 33 H D, Creatinine 1.40 H, Estimated Creat Clear 42, Estimated GFR 37 L, Est GFR ( Amer) 45 L, Glucose 128 H D, Calcium 9.2, Total Bilirubin 0.7, AST 25 D, ALT 23 D, Alkaline Phosphatase 105, Total Protein 6.4, Albumin 3.5 D, Globulin 2.9, Albumin/Globulin Ratio 1.2 11/13/22 06:25: WBC 27.0 H*, RBC 3.94 L, Hgb 10.7 L D, Hct 32.4 L, MCV 82.4, MCH 26.9 L, MCHC 32.7, RDW 14.2, Plt Count 153, MPV 9.6, Neut % (Auto) 85.8 H, Lymph % (Auto) 10.2, [place] % (Auto) 3.1, Eos % (Auto) 0.6, Baso % (Auto) 0
[2022-11-13 09:07] LABS: Hemoglobin A1C 7.6 % (4.0-6.0)
[2022-11-13 10:11] LABS: Adenovirus,PCR Not Detected (NotDetected); Bordetella Pertussis Not Detected (NotDetected); Chlamydophila Pneumoniae, PCR Not Detected (NotDetected); Coronavirus 19, PCR Not Detected (NotDetected); Coronavirus 229E Not Detected (NotDetected); Coronavirus NL63 Not Detected (NotDetected); Coronavirus OC43 Not Detected (NotDetected); Coronovirus HKU1,PCR Not Detected (NotDetected); Human Metapneumovirus Not Detected (NotDetected); Influenza A, PCR Not Detected (NotDetected); Influenza AH1, 2009 Not Detected (NotDetected); Influenza AH1, PCR Not Detected (NotDetected); Influenza AH3,PCR Not Detected (NotDetected); Influenza B, PCR Not Detected (NotDetected); Mycoplasma Pneumoniae, PCR Not Detected (NotDetected); Parainfluenza 1, PCR Not Detected (NotDetected); Parainfluenza 2, PCR Not Detected (NotDetected); Parainfluenza 3, PCR Not Detected (NotDetected); Parainfluenza 4, PCR Not Detected (NotDetected); Respiratory Syncytial Virus Not Detected (NotDetected); Rhinovirus/Enterovirus Not Detected (NotDetected)
[2022-11-13 11:41] VITALS: BP 128/72; PULSE 69; RESP 18; TEMP 37; O2SAT 94
[2022-11-13 13:48] VITALS: BMI 27.5
[2022-11-13 16:00] VITALS: BP 116/54; PULSE 66; RESP 18; TEMP 36.9; O2SAT 95
--- NOTE | 2022-11-13 16:11 | PC.NURSE ---
Addendum entered by Spring Bilss RN 11/13/22 17:46: PT'S BS WAS 85 Original Note: PT IS RESTING IN BED. ALERT AND ORIENTED X4. APPETITE HAS BEEN POOR HOWEVER PT IS DRINKING OKAY. AMBULATES TO THE BATHROOM. COMPLAINS OF RIGHT SIDED PAIN WHEN TAKING A DEEP BREATH. LUNG SOUNDS DIMINISHED WITH MINIMAL CRACKLES. ABDOMEN SOFT/NON TENDER WITH ACTIVE BOWEL SOUNDS. WILL CONTINUE TO MONITOR.
[2022-11-13 17:49] LABS: POC Glucose,Bedside 85 (70-110)
[2022-11-13 20:00] VITALS: BP 111/49; PULSE 70; RESP 18; TEMP 36.7; O2SAT 92
[2022-11-14] VITALS: BP 116/51; PULSE 77; RESP 18; TEMP 36.9; O2SAT 93
[2022-11-14 04:00] VITALS: BP 109/54; PULSE 70; RESP 18; TEMP 36.9; O2SAT 91; BMI 27.7
--- NOTE | 2022-11-14 04:51 | PC.NURSE ---
No changes through out the night. Getting fluids and abx while here in the hosptial. She is 93% on RA.
[2022-11-14 07:47] LABS: Basophils # 0.1 K/mm3 (0-0.2); Basophils % 0.5 % (0.1-2.0); Eosinophils # 0.3 K/mm3 (0.0-0.4); Eosinophils % 1.7 % (0.1-12.0); Hematocrit 32.4 % (37.0-47.0); Hemoglobin 10.6 g/dL (12.2-16.2); Lymphocytes # 3.1 K/mm3 (0.7-4.5); Lymphocytes % 17.7 % (10-50); Mean Corpuscular HGB Conc 32.7 g/dL (31.8-35.4); Mean Corpuscular Hemoglobin 26.4 pg (27.0-31.2); Mean Corpuscular Volume 80.7 fl (81-99); Mean Platelet Volume 9.8 fl (7.4-10.4); Monocytes # 0.6 K/mm3 (0.1-1.0); Monocytes % 3.3 % (1.7-9.3); Neutrophils # 13.3 K/mm3 (1.8-7.8); Neutrophils % 76.7 % (37.0-80.0); Platelet Count 180 K/mm3 (142-424); Red Blood Count 4.01 M/mm3 (4.20-5.40); Red Cell Distribution Width 14.2 % (11.5-17.5); White Blood Count 17.3 K/mm3 (4.8-10.8)
[2022-11-14 07:50] LABS: MANUAL DIFFERENTIAL MANUAL DIFFERENTIAL (MANUAL DIFF)
[2022-11-14 08:00] VITALS: BP 115/55; PULSE 64; RESP 18; TEMP 36.9; O2SAT 95
[2022-11-14 08:01] LABS: Chloride 103 mmol/L (98-107); Sodium 135 mmol/L (136-145)
[2022-11-14 08:02] LABS: Potassium 3.9 mmoL/L (3.5-5.1)
[2022-11-14 08:04] LABS: Alanine Aminotransferase 19 U/L (12-78); Albumin Level 3.4 g/dl (3.5-5.0); Albumin/Globulin Ratio 1.2 (1.1-1.8); Alkaline Phosphatase 100 U/L (38-126); Anion Gap 11.9 mEq/L (5-15); Aspartate Amino Transferase 27 U/L (14-36); Bilirubin,Total 0.7 mg/dl (0.2-1.3); Blood Urea Nitrogen 26 mg/dl (7-17); Carbon Dioxide 24 mmol/L (22.0-30.0); Creatinine Clearance Estimated 54 mL/min (50-200); Estimated Glomerular Filt Rate 49 ml/min (>60); GFR (African American) 59 ML/MIN (>60); Globulin 2.9 g/dL (1.3-3.2); Total Protein,Serum 6.3 g/dl (6.3-8.2)
[2022-11-14 08:05] LABS: Calcium 8.8 mg/dl (8.4-10.2); Glucose 81 mg/dl (74-100)
[2022-11-14 10:39] LABS: Hypochromasia 1+; Lymphocytes % 19 % (10-50); Monocytes % 3 % (2-9); Neutrophils % 78 % (42-76); Platelet Estimate Normal; Total Cells Counted 100
--- NOTE | 2022-11-14 10:58 | EXP.ACUTE.PN ---
Subjective *Date: 11/14/22 *Time: 10:58 Interval history: She feels better. Cough is less and is less productive. Her right-sided chest pain has decreased significantly. Afebrile. She was not out of bed yesterday except for the restroom. Her white blood cell count has declined to 17.3. Hemoglobin is 10.6. Her electrolytes have improved and BUN and creatinine and GFR have improved. Medical Exam Vital signs and Labs for Last 24 Hours: Vital Signs Temp Pulse Resp BP BP Pulse Ox 11/14/22 08:00 98.4 F 64 18 115/55 L 95 11/14/22 04:00 98.5 F 70 18 109/54 L 91 L 11/14/22 00:00 98.4 F 77 18 116/51 L 93 L 11/13/22 20:00 98.0 F 70 18 111/49 L 92 L 11/13/22 16:00 98.5 F 66 18 116/54 L 95 11/13/22 11:41 98.6 F 69 18 128/72 94 L Intake and Output 11/13/22 11/14/22 11/14/22 19:59 03:59 11:59 Intake Total 518 / 1358 600 / 1358 240 / 1358 Output Total 0 / 0 0 / 0 0 / 0 Balance 518 / 1358 600 / 1358 240 / 1358 Intake: Intake, Oral Amount 60 / 300 240 / 300 Intake, Total IV Amount 458 / 1058 600 / 1058 Sodium Chloride 0.45 % 1,000 ml 458 / 1058 600 / 1058 @ 75 mls/hr IV [facility][id number] [facility] Rx #:[id number] Output: Output, Urine Amount 0 / 0 0 / 0 0 / 0 Other: Number of Unmeasured Voids 1 1 1 Weight 165 lb 5.547 oz 166 lb 6.4 oz Patient Weight 11/14/22 11:59 Weight 166 lb 6.4 oz Laboratory Results - last 24 hr 11/13/22 10:00: Chlamy pneumoniae PCR Not detected, Adenovirus (PCR) Not detected, B. pertussis DNA (PCR) Not detected, Coronavirus OC43 (PCR) Not detected, Coronavirus HKU1 (PCR) Not detected, Coronavirus 229E (PCR) Not detected, SARS-CoV-2 (PCR) Not detected, Coronavirus NL63 (PCR) Not detected, Human Metapneumovir PCR Not detected, Influenza A (H1) PCR Not detected, Influ A (H1N1/09) PCR Not detected, Influenza A (H3) PCR Not detected, Influenza Type A (PCR) Not detected, Influenza Type B (PCR) Not detected, M. pneumoniae (PCR) Not detected, Parainfluenza 1 (PCR) Not detected, Parainfluenza 2 (PCR) Not detected, Parainfluenza 3 (PCR) Not detected, Parainfluenza 4 (PCR) Not detected, RSV (PCR) Not detected, Entero/Rhino (PCR) Not detected 11/13/22 17:42: POC Glucose 85 11/14/22 07:21: WBC 17.3 H D, RBC 4.01 L, Hgb 10.6 L, Hct 32.4 L, MCV 80.7 L, MCH 26.4 L, MCHC 32.7, RDW 14.2, Plt Count 180, MPV 9.8, Neut % (Auto) 76.7, Lymph % (Auto) 17.7, [place] % (Auto) 3.3, Eos % (Auto) 1.7, Baso % (Auto) 0.5, Neut # (Auto) 13.3 H, Lymph # (Auto) 3.1, [place] # (Auto) 0.6, Eos # (Auto) 0.3, Baso # (Auto) 0.1, Total Counted 100, Neutrophils % (Manual) 78 H, Lymphocytes % (Manual) 19, Monocytes % (Manual) 3, Platelet Estimate Normal, Hypochromasia 1+ 11/14/22 07:21: Sodium 135 L, Potassium 3.9, Chloride 103, Carbon Dioxide 24, Anion Gap 11.9, BUN 26 H, Creatinine 1.10 H D, Estimated Creat Clear 54, Estimated GFR 49 L, Est GFR ( Amer) 59 D, Glucose 81, Calcium 8.8, Total Bilirubin 0.7, AST 27, ALT 19, Alkaline Phosphatase 100, Total Protein 6.3, Albumin 3.4 L, Globulin 2.9, Albumin/Globulin Ratio 1.2 I & O for Labs for Last 24 Hours: Intake & Output 11/11/22 11/12/22 11/13/22 11/14/22 11:59 11:59 11:59 11:59 Intake Total 530 / 530 1358 / 1358 Output Total 0 / 0 0 / 0 Balance 530 / 530 1358 / 1358 Weight 165 lb 164 lb 3 oz 166 lb 6.4 oz Microbiology Reports for the Last 24 Hours: Microbiology 11/12/22 10:30 Blood Blood Culture - Preliminary NO GROWTH AFTER 48 HOURS 11/12/22 10:30 Blood Blood Culture - Preliminary NO GROWTH AFTER 48 HOURS Head: Present normocephalic Neck: Present normal inspection Respiratory: Present rales (At bases bilaterally. Actually more prominent on the left than the right today.); Absent respiratory distress, stridor or wheezes Cardiac: Present Reg Rate and Rhythm and Systolic Murmur GI: Present soft; Absent tenderness Rectal (female): Present deferred (female)
[2022-11-14 12:00] VITALS: BP 128/66; PULSE 72; RESP 18; TEMP 37.1; O2SAT 97
[2022-11-14 16:00] VITALS: BP 132/63; PULSE 70; RESP 18; TEMP 37.2; O2SAT 100
[2022-11-14 20:00] VITALS: BP 119/50; PULSE 69; RESP 18; TEMP 37.1; O2SAT 93; O2SAT 96
[2022-11-15] VITALS: BP 121/51; PULSE 70; RESP 18; TEMP 36.7; O2SAT 93
[2022-11-15 04:00] VITALS: BP 130/66; PULSE 67; RESP 18; TEMP 36.7; O2SAT 96; BMI 27.1
--- NOTE | 2022-11-15 05:59 | PC.NURSE ---
pt slept most of the night, vss, no acute distress, lung sounds clear and diminished, skin pwd without edema, no other issues or concerns at this time.
[2022-11-15 06:39] VITALS: O2SAT 97
--- NOTE | 2022-11-15 07:55 | PC.NURSE ---
noted peripheral iv leaking, reported to oncoming nurse, fluids stopped at this time.
[2022-11-15 08:00] VITALS: BP 133/56; PULSE 60; RESP 18; TEMP 36.5; O2SAT 97
[2022-11-15 08:06] LABS: Basophils # 0.1 K/mm3 (0-0.2); Basophils % 0.5 % (0.1-2.0); Eosinophils # 0.3 K/mm3 (0.0-0.4); Eosinophils % 1.9 % (0.1-12.0); Hemoglobin 11.7 g/dL (12.2-16.2); Lymphocytes # 2.3 K/mm3 (0.7-4.5); Lymphocytes % 17.4 % (10-50); Mean Corpuscular HGB Conc 33.6 g/dL (31.8-35.4); Mean Corpuscular Hemoglobin 26.5 pg (27.0-31.2); Mean Corpuscular Volume 78.8 fl (81-99); Mean Platelet Volume 10.5 fl (7.4-10.4); Monocytes # 0.6 K/mm3 (0.1-1.0); Monocytes % 4.2 % (1.7-9.3); Neutrophils # 10.2 K/mm3 (1.8-7.8); Neutrophils % 76.1 % (37.0-80.0); Platelet Count 207 K/mm3 (142-424); Red Blood Count 4.44 M/mm3 (4.20-5.40); Red Cell Distribution Width 13.9 % (11.5-17.5); White Blood Count 13.5 K/mm3 (4.8-10.8)
[2022-11-15 08:11] LABS: Chloride 103 mmol/L (98-107)
[2022-11-15 08:12] LABS: Sodium 136 mmol/L (136-145)
[2022-11-15 08:14] LABS: Alanine Aminotransferase 16 U/L (12-78); Alkaline Phosphatase 120 U/L (38-126); Aspartate Amino Transferase 24 U/L (14-36); Bilirubin,Total 0.8 mg/dl (0.2-1.3); Blood Urea Nitrogen 20 mg/dl (7-17); Creatinine Clearance Estimated 59 mL/min (50-200); Estimated Glomerular Filt Rate 61 ml/min (>60); GFR (African American) 74 ML/MIN (>60)
[2022-11-15 08:15] LABS: Albumin Level 3.8 g/dl (3.5-5.0); Albumin/Globulin Ratio 1.2 (1.1-1.8); Calcium 9.2 mg/dl (8.4-10.2); Carbon Dioxide 23 mmol/L (22.0-30.0); Globulin 3.1 g/dL (1.3-3.2); Glucose 71 mg/dl (74-100); Total Protein,Serum 6.9 g/dl (6.3-8.2)
[2022-11-15 11:11] VITALS: O2SAT 97
[2022-11-15 11:43] VITALS: BP 143/73; PULSE 70; RESP 16; TEMP 36.8; O2SAT 97
--- NOTE | 2022-11-15 13:01 | EXP.ACUTE.PN ---
Subjective *Date: 11/15/22 *Time: 13:01 Interval history: She is feeling well and would like to go home on . She slept okay last night. Her cough is less. Her cough has never been very productive. She has been on room air since her admission with good oxygen saturations. She has had 4 days of levofloxacin. She is still receiving Rocephin. I will send her home on cefdinir. At this point I will not continue the levofloxacin. Her white blood cell count has decreased to 13.6. Her blood chemistries are normal and her GFR has normalized at 61. Medical Exam Vital signs and Labs for Last 24 Hours: Vital Signs Temp Pulse Resp BP Pulse Ox 11/15/22 11:43 98.2 F 70 16 143/73 H 97 11/15/22 11:11 97 11/15/22 08:00 97.7 F 60 18 133/56 L 97 11/15/22 06:39 97 11/15/22 04:00 98.1 F 67 18 130/66 96 11/14/22 20:00 93 L 11/15/22 00:00 98.0 F 70 18 121/51 L 93 L 11/14/22 20:00 98.8 F 69 18 119/50 L 96 11/14/22 16:00 98.9 F 70 18 132/63 100 Intake and Output 11/15/22 11/15/22 11/15/22 03:59 11:59 19:59 Intake Total 2806 / 3286 Output Total 0 / 0 0 / 0 Balance 0 / 3286 2806 / 3286 Intake: Intake, Oral Amount 240 / 720 Intake, Total IV Amount 2566 / 2566 Ceftriaxone Sodium 1 gm In 0.9 50 / 50 % Sodium Chloride 50 ml @ 100 mls/hr IV Q24H [facility] Rx#:[id number] Sodium Chloride 0.45 % 1,000 ml 2516 / 2516 @ 75 mls/hr IV .[id number] Rx #:[id number] Output: Output, Urine Amount 0 / 0 0 / 0 Other: Number of Unmeasured Voids 1 Weight 163 lb 1 oz Laboratory Results - last 24 hr 11/15/22 07:34: WBC 13.5 H, RBC 4.44, Hgb 11.7 L, Hct 35.0 L, MCV 78.8 L, MCH 26.5 L, MCHC 33.6, RDW 13.9, Plt Count 207, MPV 10.5 H, Neut % (Auto) 76.1, Lymph % (Auto) 17.4, [place] % (Auto) 4.2, Eos % (Auto) 1.9, Baso % (Auto) 0.5, Neut # (Auto) 10.2 H, Lymph # (Auto) 2.3, [place] # (Auto) 0.6, Eos # (Auto) 0.3, Baso # (Auto) 0.1 11/15/22 07:34: Sodium 136, Potassium 4.0, Chloride 103, Carbon Dioxide 23, Anion Gap 14.0, BUN 20 H, Creatinine 0.90, Estimated Creat Clear 59, Estimated GFR 61, Est GFR ( Amer) 74 D, Glucose 71 L, Calcium 9.2, Total Bilirubin 0.8, AST 24, ALT 16, Alkaline Phosphatase 120, Total Protein 6.9, Albumin 3.8 D, Globulin 3.1, Albumin/Globulin Ratio 1.2 I & O for Labs for Last 24 Hours: Intake & Output 11/13/22 11/14/22 11/15/22 11/16/22 11:59 11:59 11:59 11:59 Intake Total 530 / 530 1358 / 1358 3286 / 3286 Output Total 0 / 0 0 / 0 0 / 0 Balance 530 / 530 1358 / 1358 3286 / 3286 Weight 164 lb 3 oz 166 lb 6.4 oz 163 lb 1 oz Microbiology Reports for the Last 24 Hours: Microbiology 11/12/22 10:30 Blood Blood Culture - Preliminary NO GROWTH AFTER 48 HOURS 11/12/22 10:30 Blood Blood Culture - Preliminary NO GROWTH AFTER 48 HOURS Head: Present normocephalic Neck: Present normal inspection Respiratory: Present CTA bilaterally and rales (Minimal); Absent accessory muscle use or respiratory distress Cardiac: Present Reg Rate and Rhythm (paced) GI: Present soft; Absent tenderness Rectal (female): Present deferred (female): Present deferred Extremities: Absent edema Skin: Present intact Neuro: Present alert and oriented x 3 Assessment and Plan *Assessment and plan (1) Right middle lobe pneumonia: Status: Acute Category: Medical Code(s): J18.9 - Pneumonia, unspecified organism (2) Pleuritis: Status: Acute Category: Medical Code(s): R09.1 - Pleurisy (3) HTN (hypertension): Status: Chronic Qualifiers: Hypertension type: essential hypertension Qualified Code(s): I10 - Essential (primary) hypertension Category: Medical Code(s): I10 - Essential (primary) hypertension (4) Diabetes mellitus: Status: Chronic Qualifiers: Diabetes mellitus type: typ
--- NOTE | 2022-11-17 14:24 | CARE MANAGER ---
Spoke with patient for post-discharge phone interview, patient has medications and no issues at this time.
--- NOTE | 2022-11-19 12:56 | EXP.DC.SUM ---
General Admission date:: 11/12/22 Discharge date: 11/15/22 HPI HPI HPI: This 72-year-old white female started with symptoms last night. She states that the day before she was symptom-free. Last night she developed fever, cough, congestion, and chills. She has had sputum production. She was evaluated in the emergency room and found to have a right middle lobe pneumonia. The following is the emergency room narrative : this is a 72-year-old female with history of hypertension, ESA, diabetes, hypertension, hyperlipidemia, arrhythmia status post pacemaker defibrillator placement who is presenting with shortness of breath, vomiting, fevers and chills, cough.? Patient states that 1 night prior to arrival on 11/11, she began vomiting violently after dinner.? Nonbloody/nonbilious vomiting 10+ times.? Since that time, she also began having fevers, chills, no discrete measured temperature, with associated cough productive of green and brown sputum.? Denies confusion, altered mental status, neurologic deficits, recent sick contacts, but since the morning of 11/12, began developing right-sided chest wall pain that is worse with application of pressure.? Pain is 10 out of 10, does not radiate, worse with cough.? No interventions have been tried to make this better. Hospital Course Hospital Course Hospital Course: The patient was admitted with pneumonia and started on pneumonia protocol. She complained of some right-sided pleuritic pain and pain with inspiration. Rocephin was added to Levaquin, which she was already taking. She was started on some IV fluids as well as incentive spirometry and a respiratory panel was ordered. She did begin feeling better and her white blood cell count decreased. Her electrolytes improved as did her renal function. Her respiratory panel was negative. Her blood culture showed no growth at 48 hours. She was continued on antibiotics and by 11/15/2022, she was feeling better and wanted to go home for . Her cough improved and she had been on room air with good oxygen saturations. It was felt she could be discharged home on cefdinir as she had already had 4 days of Levaquin. Her white blood cell count had decreased to 13.6 and her blood chemistries were normal as was her GFR. She will follow-up in the office with Dr. Tellez. Exam Data for Last 24 hours Vital signs and Labs for Last 24 Hours: Temp Pulse Resp BP Pulse Ox 98.2 F 70 16 143/73 H 97 11/15/22 11:43 11/15/22 11:43 11/15/22 11:43 11/15/22 11:43 11/15/22 11:43 Narrative: Constitutional Constitutional: mild distress (Pleuritic right chest pain) *Routine HEENT Exam Head: Present normocephalic Eye: Present PERRL ENT: Present mucous membranes moist *Routine Neck Exam Neck: Present full ROM; Absent JVD Routine Chest/Breast/Axilla Exam Chest wall: Present pacemaker; Absent tenderness *Routine Respiratory Exam Respiratory: Present rales (Right base); Absent respiratory distress, rhonchi, stridor or wheezes *Routine Cardiovascular Exam Cardiovascular: Present RRR (Paced) *Routine Abdominal Exam Abdominal: Present soft; Absent tenderness *Routine Rectal Exam Rectal:: deferred *Routine Genitalia Exam Genitalia:: deferred *Routine Extremities Exam Extremities: Absent edema Routine Back/Spine/Pelvis Exam Back/Spine: Present full ROM; Absent CVA tenderness *Routine Skin Exam Skin: Present intact *Routine Neurological Exam Neurological: Present alert, oriented X3 and normal speech Routine Psychiatric Exam Psychiatric: Present normal affect and normal thought process DS: Diagnosis Discharge Diagnosis (1) Right middle lobe pneumonia: Status: Acute (2) Pleuritis: Status: Acute (3) HTN (hypertension): Status: Chronic (4) Diabetes mellitus: Status: Chronic (5) Cardiac pacemaker in situ: Status: Chronic Meds Home Medications and Allergies Home Medications Medication Instructions Recorded
== END 2022-11-15 15:25 | disposition home or self-care (01) | DRG 195 ==
LOC: ER 09:22 → 2ND 10:58
PROVIDERS: Admitting Provider Family Medicine; Emergency Provider Emergency Medicine; PCP Family Medicine; Visit Provider Family Medicine
DX: J18.9 Pneumonia, unspecified organism (principal); I10 Essential (primary) hypertension; G47.33 Obstructive sleep apnea (adult) (pediatric); E78.5 Hyperlipidemia, unspecified; E11.9 Type 2 diabetes mellitus without complications; R09.1 Pleurisy; Z79.84 Long term (current) use of oral hypoglycemic drugs; R07.89 Other chest pain; Z95.810 Presence of automatic (implantable) cardiac defibrillator
CPT/HCPCS: 36415; 71046; 71275; 80053; 81001; 82962; 83036; 83605; 85007; 85025; 86140; 86738; 87040; 87581; 87632; 87798; 93005; 94640; 99285; C9803; J0696; J1956; J2405; Q9967; U0003; U0005

== ENCOUNTER → 2022-11-23 10:35 | Outpatient (CLI) | payer MEDICARE, SELFPAY ==
--- NOTE | 2022-11-23 10:40 | XR_ITS ---
PROCEDURE INFORMATION: Exam: XR Chest Exam date and time: 11/23/2022 10:50 AM Age: 72 years old Clinical indication: Shortness of breath; Additional info: Pneumonia of R middle lobe TECHNIQUE: Imaging protocol: Radiologic exam of the chest. Views: 2 views. COMPARISON: CR XR CHEST 2V 11/12/2022 9:39 AM FINDINGS: Tubes, catheters and devices: Cardiac rhythm maintenance device is in place. Lungs: Improving right middle lobe pneumonia. Persistent linear opacity in this region could reflect some residual pneumonia or scarring. Pleural spaces: Unremarkable. No pleural effusion. No pneumothorax. Heart/Mediastinum: Unremarkable. No cardiomegaly. Bones/joints: Unremarkable. Organs: Cholecystectomy clips. IMPRESSION: Improving right middle lobe pneumonia. Persistent linear opacity in this region could reflect some residual pneumonia or scarring.
== END ==
PROVIDERS: PCP Family Medicine; Visit Provider Family Medicine
DX: J18.9 Pneumonia, unspecified organism (principal)
CPT/HCPCS: 71046

== ENCOUNTER → 2023-02-15 14:18 | Outpatient (CLI) | payer MEDICARE, SELFPAY ==
--- NOTE | 2023-02-15 14:22 | XR_ITS ---
FINAL REPORT CLINICAL HISTORY: PNM COMPARISON: 11/23/2022 FINDINGS: PA and lateral views of the chest were obtained. A left subclavian pacemaker is unchanged. The cardiac and mediastinal silhouettes are within normal limits. There has been interval improvement in right middle and lower lung opacities. The lungs are otherwise clear. There is no pleural effusion or pneumothorax. No acute osseous abnormality is identified. IMPRESSION: Interval improvement in right middle and lower lung opacities. Lungs otherwise clear. Reviewed, Interpreted and Dictated by Tri Zarate MD Transcribed by Tammy Billingsley Authenticated and [facility]
== END ==
PROVIDERS: PCP Family Medicine; Visit Provider Internal Medicine Pulmonary Disease
DX: R06.02 Shortness of breath (principal)
CPT/HCPCS: 71046

== ENCOUNTER → 2023-03-09 08:17 | Outpatient (CLI) | payer MEDICARE, SELFPAY ==
--- NOTE | 2023-03-09 08:19 | MM_ITS ---
PROCEDURE INFORMATION: Exam: MG Bilateral Screening 3D Mammography Exam date and time: 03/09/2023 8:10 AM Age: 72 years old Clinical indication: Screening. No family history of breast cancer. TECHNIQUE: Imaging protocol: Bilateral Screening tomosynthesis and 2D mammography including computer-aided detection (CAD) when performed. COMPARISON: 1. MG MM DIG SCREENING MAMM BI W/CAD 08/26/2021 10:47 AM 2. MG MM DIG SCREENING MAMM BI W/CAD 07/15/2020 8:29 AM 3. MG DMSB DIG MAMM-SCREEN CAYLA W/CAD 03/30/2017 10:09 AM 4. MG DIGMAMMS MAMMOGRAM SCREEN-AIR QUALITY MANAGER N/C 03/07/2008 11:15 AM FINDINGS: MAMMOGRAPHY: Breast composition: There are scattered areas of fibroglandular density. Mass: None. Architectural distortion: None. Calcifications: No suspicious calcifications. Asymmetric density: No developing asymmetry. Skin thickening: None. Axillary adenopathy: None. Other: Pacemaker in the left axilla, limits evaluation and accentuates the importance of clinical breast exam. IMPRESSION: No mammographic evidence of malignancy. Annual screening is recommended unless otherwise clinically indicated. ASSESSMENT: BI-RADS Category 1: Negative
== END ==
PROVIDERS: PCP Family Medicine; Visit Provider Family Medicine
DX: Z12.31 Encounter for screening mammogram for malignant neoplasm of breast (principal)
CPT/HCPCS: 77063; 77067

== ENCOUNTER → 2023-03-17 10:02 | Outpatient (CLI) | payer MEDICARE, SELFPAY ==
--- NOTE | 2023-03-17 10:19 | XR_ITS ---
FINAL REPORT CLINICAL HISTORY: recent fall COMPARISON: 02/15/2023 FINDINGS: Two views of the chest were obtained. Left subclavian pacemaker is present. The heart size and pulmonary vascularity are within normal limits. The mediastinum is normal. No acute pulmonary abnormality is identified. There is no pneumothorax. Mild and moderate degenerative change in the thoracic spine. IMPRESSION: No active cardiopulmonary disease. Reviewed, Interpreted and Dictated by Deon Garcia III, MD Transcribed by Mary Jane Whyte Authenticated and [facility]
--- NOTE | 2023-03-17 10:19 | XR_ITS ---
FINAL REPORT CLINICAL HISTORY: recent fall COMPARISON: none FINDINGS: LEFT SHOULDER Four views demonstrate no acute fracture or dislocation. Mild AC joint and glenohumeral joint degenerative change. The visualized bony structures are well aligned. Left subclavian pacemaker obscures some of the bony detail. No soft tissue abnormality is seen. IMPRESSION: Degenerative change with no acute bony abnormality visualized. Reviewed, Interpreted and Dictated by Deon Garcia III, MD Transcribed by Mary Jane Whyte Authenticated and [facility]
[2023-03-17 10:38] LABS: Basophils # 0.1 K/mm3 (0-0.2); Basophils % 0.7 % (0.1-2.0); Eosinophils # 0.4 K/mm3 (0.0-0.4); Eosinophils % 5.6 % (0.1-12.0); Hematocrit 40.8 % (37.0-47.0); Hemoglobin 13.1 g/dL (12.2-16.2); Lymphocytes # 2.6 K/mm3 (0.7-4.5); Lymphocytes % 34.5 % (10-50); Mean Corpuscular HGB Conc 32.2 g/dL (31.8-35.4); Mean Corpuscular Hemoglobin 26.5 pg (27.0-31.2); Mean Corpuscular Volume 82.2 fl (81-99); Mean Platelet Volume 9.4 fl (7.4-10.4); Monocytes # 0.4 K/mm3 (0.1-1.0); Monocytes % 5.2 % (1.7-9.3); Neutrophils # 4.1 K/mm3 (1.8-7.8); Platelet Count 191 K/mm3 (142-424); Red Blood Count 4.96 M/mm3 (4.20-5.40); Red Cell Distribution Width 14.3 % (11.5-17.5); White Blood Count 7.6 K/mm3 (4.8-10.8)
[2023-03-17 11:28] LABS: Chloride 101 mmol/L (98-107); Potassium 4.6 mmoL/L (3.5-5.1); Sodium 137 mmol/L (136-145)
[2023-03-17 11:30] LABS: Alanine Aminotransferase 19 U/L (12-78); Aspartate Amino Transferase 22 U/L (14-36); Bilirubin,Unconjugated 0.4 mg/dL (0.0-1.1); Blood Urea Nitrogen 17 mg/dl (7-17); Estimated Glomerular Filt Rate 61 ml/min (>60); GFR (African American) 74 ML/MIN (>60)
[2023-03-17 11:31] LABS: Albumin Level 4.1 g/dl (3.5-5.0); Alkaline Phosphatase 120 U/L (38-126); Anion Gap 12.6 mEq/L (5-15); Bilirubin,Direct 0.1 mg/dl (0.0-0.4); Bilirubin,Indirect 0.4 mg/dL (0.0-0.9); Bilirubin,Total 0.5 mg/dl (0.2-1.3); Calcium 9.1 mg/dl (8.4-10.2); Carbon Dioxide 28 mmol/L (22.0-30.0); Chol/HDL Ratio 4.7 (1-3.5); Cholesterol 206 mg/dl (140-200); Glucose 264 mg/dl (74-100); HDL Cholesterol 44 mg/dl (40-60); Magnesium 1.8 mg/dl (1.6-2.3); Total Protein,Serum 6.8 g/dl (6.3-8.2); Triglycerides 172 mg/dl (30-150); VLDL Cholesterol 34 mg/dL (0-40)
[2023-03-17 11:42] LABS: Direct LDL Cholesterol 130.78 mg/dL (100-129)
[2023-03-17 11:46] LABS: Free T4 (Free Thyroxine) 1.34 ng/dl (0.78-2.19)
[2023-03-17 12:01] LABS: Thyroid Stimulating Hormone 1.73 uIU/mL (0.465-4.68)
== END ==
PROVIDERS: PCP Family Medicine; Visit Provider Nurse Practitioner
DX: E78.2 Mixed hyperlipidemia (principal); I10 Essential (primary) hypertension; R06.00 Dyspnea, unspecified; R07.9 Chest pain, unspecified; W19.XXXA Unspecified fall, initial encounter; Z95.0 Presence of cardiac pacemaker
CPT/HCPCS: 36415; 71046; 73030; 80048; 80061; 80076; 83735; 84439; 84443; 85025

== ENCOUNTER 2023-05-11 07:32 | Emergency (ER) | payer MEDICARE, SELFPAY ==
[2023-05-11] VITALS (7 sets, daily range): BP systolic 110–153; BP diastolic 56–69; PULSE 70–75; RESP 16; TEMP 36.5–36.7; O2SAT 96–99; BMI 28.3
--- NOTE | 2023-05-11 07:55 | XR_ITS ---
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 C/O MONTGOM[place] @ occipital lobe, NKT. Nonsmoker, 0 ca hx. COMPARISON: 03/17/2013 FINDINGS: SINGLE-VIEW CHEST The heart size is normal. The mediastinum is normal. A pacer is identified. There is chronic scarring in the right infrahilar region. The lungs are otherwise clear. There is no pneumothorax. IMPRESSION: No acute cardiopulmonary process. Reviewed, Interpreted and Dictated by Gunnar Brown MD Transcribed by Lyly Harvey Authenticated and [facility]
[2023-05-11 08:02] LABS: Basophils # 0.1 K/mm3 (0-0.2); Basophils % 1.1 % (0.1-2.0); Eosinophils # 0.3 K/mm3 (0.0-0.4); Eosinophils % 5.7 % (0.1-12.0); Hematocrit 42.1 % (37.0-47.0); Hemoglobin 12.9 g/dL (12.2-16.2); Lymphocytes # 2.3 K/mm3 (0.7-4.5); Lymphocytes % 44.7 % (10-50); Mean Corpuscular HGB Conc 30.6 g/dL (31.8-35.4); Mean Corpuscular Hemoglobin 25.1 pg (27.0-31.2); Mean Corpuscular Volume 82.1 fl (81-99); Mean Platelet Volume 8.9 fl (7.4-10.4); Monocytes # 0.3 K/mm3 (0.1-1.0); Monocytes % 6.1 % (1.7-9.3); Neutrophils # 2.2 K/mm3 (1.8-7.8); Neutrophils % 42.4 % (37.0-80.0); Platelet Count 177 K/mm3 (142-424); Red Blood Count 5.12 M/mm3 (4.20-5.40); Red Cell Distribution Width 13.3 % (11.5-17.5); White Blood Count 5.1 K/mm3 (4.8-10.8)
[2023-05-11 08:03] LABS: Chloride 98 mmol/L (98-107); Sodium 135 mmol/L (136-145)
[2023-05-11 08:05] LABS: Alanine Aminotransferase 28 U/L (12-78); Aspartate Amino Transferase 25 U/L (14-36); Blood Urea Nitrogen 16 mg/dl (7-17); Creatinine Clearance Estimated 61 mL/min (50-200); Estimated Glomerular Filt Rate 61 ml/min (>60); GFR (African American) 74 ML/MIN (>60)
[2023-05-11 08:06] LABS: Albumin Level 4.1 g/dl (3.5-5.0); Albumin/Globulin Ratio 1.3 (1.1-1.8); Alkaline Phosphatase 142 U/L (38-126); Bilirubin,Total 0.5 mg/dl (0.2-1.3); Calcium 9.1 mg/dl (8.4-10.2); Carbon Dioxide 28 mmol/L (22.0-30.0); Globulin 3.1 g/dL (1.3-3.2); Glucose 310 mg/dl (74-100); Total Protein,Serum 7.2 g/dl (6.3-8.2)
--- NOTE | 2023-05-11 08:14 | CT_ITS ---
FINAL REPORT TECHNIQUE: Axial images were performed through the brain.This study was performed with techniques to keep radiation doses as low as reasonably achievable, (ALARA). Individualized dose reduction techniques using automated exposure control or adjustment of mA and/or kV according to the patient''s size were employed. 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 C/O MONTG[place] @ occipital lobe, NKT. COMPARISON: 10/04/2019 FINDINGS: There is mild age-appropriate atrophy. The ventricles are normal in size for the degree of atrophy. There is no extra-axial fluid or midline shift. There is dense calcification at the anterior interhemispheric falx. There is no evidence of acute hemorrhage. There is a retention cyst or polyp in the left maxillary sinus. The mastoid air cells are hypoplastic. IMPRESSION: Atrophy. No acute intracranial process. Reviewed, Interpreted and Dictated by Gunnar Brown MD Transcribed by Lyly Harvey Authenticated and [facility]
[2023-05-11 08:30] LABS: POC Glucose,Bedside 298 (70-110)
[2023-05-11 08:31] LABS: Chol/HDL Ratio 5.1 (1-3.5); Cholesterol 216 mg/dl (140-200); HDL Cholesterol 42 mg/dl (40-60); Triglycerides 200 mg/dl (30-150); VLDL Cholesterol 40 mg/dL (0-40)
[2023-05-11 08:35] LABS: Activated Partial Thrombo Time 24.9 seconds (22.8-30.6); INR 0.98 (0.9-1.1); Prothrombin Time 10.6 seconds (10.1-12.5)
--- NOTE | 2023-05-11 08:36 | PC.NURSE ---
pt to rad
[2023-05-11 08:42] LABS: Direct LDL Cholesterol 120.52 mg/dL (100-129)
[2023-05-11 08:45] LABS: Troponin I < 0.01 ng/ml (0.00-0.034)
--- NOTE | 2023-05-11 09:05 | ECG_ITS ---
APPROVED REPORT Exam: Resting ECG HR:69 bpm ECG Measurements Heart Rate 69 AXES SC 202 P 100 QRSd 114 QRS -12 QT 416 T 65 QTc 436 Conclusion ELECTRONIC ATRIAL PACEMAKER SEPTAL MYOCARDIAL INFARCTION , PROBABLY OLD [40+ ms Q WAVE IN V1/V2] ABNORMAL ECG UNCONFIRMED REPORT Electronically signed by : Felipe Gonsalez MD 05/11/2023 20:13:37
--- NOTE | 2023-05-11 10:33 | HMH.EDDIZZ ---
Discharge Plan Disposition Patient Disposition: Home, Self-Care Condition: Fair Prescriptions Prescriptions: New meclizine 25 mg tablet 25 mg PO TID PRN (Reason: dizziness) Qty: 14 0RF ondansetron 4 mg tablet,disintegrating 4 mg PO TID PRN (Reason: nausea and vomiting) 5 Days Qty: 14 0RF No Action aspirin [Adult Low Dose Aspirin] 81 mg tablet,delayed release (DR/EC) 81 mg PO DAILY rosuvastatin [Crestor] 20 mg tablet 20 mg PO HS Janumet 50-500 mg tablet 1 tab PO BID Label Comments: TAKE 1 TABLET BY MOUTH IN THE MORNING triamterene-hydrochlorothiazid 37.5-25 mg tablet 0.5 tab PO DAILY Qty: 30 5RF metoprolol succinate [Toprol XL] 25 mg tablet extended release 24 hr 25 mg PO DAILY albuterol sulfate 90 mcg/actuation HFA aerosol inhaler 2 puff INHALATION Q2HP PRN (Reason: SOA) Label Comments: INHALE 2 PUFFS BY MOUTH 4 TIMES DAILY AND EVERY 2 HOURS NEEDED Referrals Follow up/Referrals: Oracio Tellez MD [Primary Care Provider] - See instructions Clinical Impressions Clinical Impression: Vertigo Instructions Patient Instructions: Vertigo Discharge ED Provider: Dania (ED),Preston Pelayo HPI General Chief Complaint: Dizziness Stated Complaint: Dizzy, nausea Time Seen by Provider: 05/11/23 09:35 Mode of Arrival: Wheelchair Source of Information: Patient and Spouse Limitations: No Limitations Description of Symptoms (Recalled from ER Triage Doc. by RN): 72 yo F presents to ED with c/o dizziness and nausea. pt reports she was getting out of bed and got tunnel vision , and her head felt like it was spinning. pt also reports productive cough. History of Present Illness HPI Narrative: This is a 72-year-old white female who states she woke up this morning with vertigo and nausea. Patient says that feels like her head was spinning. No blurry vision double vision no tinnitus no unilateral weakness or numbness no headache no chest pain pressure no shortness of breath. Related Data Home Medications Medication Instructions Recorded Confirmed aspirin 81 mg tablet,delayed 81 mg PO DAILY CAD 12/27/17 04/14/23 release (Adult Low Dose Aspirin) rosuvastatin 20 mg tablet (Crestor) 20 mg PO HS Cholesterol 10/22/20 04/14/23 sitagliptin phosphate 50 1 tab PO BID Diabetes 08/11/21 04/14/23 mg-metformin 500 mg tablet (Janumet) albuterol sulfate 90 mcg/actuation 2 puff inhalation Q2HP PRN SOA 11/12/22 04/14/23 aerosol inhaler metoprolol succinate 25 mg 25 mg PO DAILY Heart rhythm 11/12/22 04/14/23 tablet,extended release 24 hr (Toprol XL) Previous Rx's Medication Instructions Recorded triamterene 37.5 0.5 tab PO DAILY High blood 03/18/23 mg-hydrochlorothiazide 25 mg tablet pressure #30 tabs meclizine 25 mg tablet 25 mg PO TID PRN dizziness #14 tabs 05/11/23 ondansetron 4 mg disintegrating 4 mg PO TID PRN nausea and 05/11/23 tablet vomiting 5 days #14 tabs Allergies Allergy/AdvReac Type Severity Reaction Status Date / Time No Known Allergies Allergy Verified 05/11/23 07:47 [facility] Disclaimer: The information contained in this section may have been updated after the patient was seen, as this information can be updated by other users. Medical History (Updated 05/11/23 @ 10:32 by Van Warren MD) Abnormal cardiovascular stress test Abnormal EKG Achilles tendinitis Atypical angina Bone spur Bronchitis Calcaneal spur Chest pain Chest wall pain Dyspnea Edema of soft tissue of right ankle region Exertional dyspnea Facial pain Fall Grade I diastolic dysfunction History of pacemaker Normal coronary arteries Osteoarthritis Pleurisy Pleuritis Pneumonia Pneumonia Right ankle instability Right ankle pain Right middle lobe pneumonia Sinusitis, acute Sprain of right ankle Symptomatic sinus bradycardia Yeast infection Surgical History History of left knee replacemen
== END 2023-05-11 11:15 | disposition home or self-care (01) ==
PROVIDERS: Emergency Medicine; Emergency Provider Emergency Medicine; PCP Family Medicine
DX: R42 Dizziness and giddiness (principal); R11.0 Nausea; E11.65 Type 2 diabetes mellitus with hyperglycemia; I10 Essential (primary) hypertension; E78.5 Hyperlipidemia, unspecified; Z95.0 Presence of cardiac pacemaker; Z79.84 Long term (current) use of oral hypoglycemic drugs
CPT/HCPCS: 70450; 71045; 80053; 80061; 82962; 84484; 85025; 85610; 85730; 93005; 96361; 96374; 96375; 99285; J2405

== ENCOUNTER 2023-09-08 12:04 | Emergency (ER) | payer MEDICARE, SELFPAY ==
[2023-09-08 12:07] VITALS: BP 172/65; PULSE 70; RESP 20; TEMP 36.4; O2SAT 97; BMI 27.4
--- NOTE | 2023-09-08 12:10 | PC.NURSE ---
PT PLACED IN C-COLLAR
--- NOTE | 2023-09-08 12:22 | CT_ITS ---
FINAL REPORT CLINICAL HISTORY: FALL FINDINGS: Axial images of the head were obtained without contrast. Coronal reformatted images were also obtained.This study was performed with techniques to keep radiation doses as low as reasonably achievable (ALARA). Individualized dose reduction techniques using automated exposure control or adjustment of mA and/or kV according to the patient''s size were employed. There is age-appropriate atrophy. Mild chronic ischemic changes are noted. There is no evidence of intracranial hemorrhage or mass. The ventricular size is within normal limits. There is no evidence of shift of the midline structures. No abnormal extra axial fluid collection is identified. No skull abnormality is seen on the bone window images. IMPRESSION: No acute intracranial abnormality. Authenticated and [facility]
--- NOTE | 2023-09-08 12:22 | CT_ITS ---
FINAL REPORT CLINICAL HISTORY: FALL FINDINGS: Axial CT images of the cervical spine were obtained without contrast. Sagittal and coronal reformatted images were also obtained. This study was performed with techniques to keep radiation doses as low as reasonably achievable (ALARA). Individualized dose reduction techniques using automated exposure control or adjustment of mA and/or kV according to the patient''s size were employed. There is no evidence of fracture or dislocation. The bony alignment is normal. Mild and moderate degenerative changes are seen. Multilevel osteophytes are noted. Multilevel neural foraminal narrowing is seen. There is no evidence of canal stenosis. No paraspinous soft tissue abnormality is seen. Limited images of the upper thorax are unremarkable. IMPRESSION: No fracture or acute bony abnormality identified. Mild and moderate degenerative change. Authenticated and [facility]
[2023-09-08 12:30] VITALS: BP 157/70; PULSE 70; RESP 18; O2SAT 97
--- NOTE | 2023-09-08 12:33 | PC.NURSE ---
DR DURAN AT BEDSIDE
--- NOTE | 2023-09-08 12:37 | CT_ITS ---
FINAL REPORT CLINICAL HISTORY: fall, midline L and S spine pain FINDINGS: Axial imaging of the lumbar spine was obtained without contrast. Sagittal and coronal reformatted images were also obtained and reviewed. This study was performed with techniques to keep radiation doses as low as reasonably achievable (ALARA). Individualized dose reduction techniques using automated exposure control or adjustment of mA and/or kV according to the patient''s size were employed. There is no fracture. The vertebral alignment is normal. Mild and moderate multilevel degenerative changes are seen. Disc bulges are seen at multiple levels. There is multilevel mild neural foraminal narrowing. There is mild central canal stenosis at T12-L1. IMPRESSION: Multilevel degenerative change without acute bony abnormality. Authenticated and [facility]
--- NOTE | 2023-09-08 12:37 | CT_ITS ---
FINAL REPORT CLINICAL HISTORY: fall, midline L and S spine pain FINDINGS: Axial CT images of the pelvis were obtained without contrast. Sagittal and coronal reformatted images were also obtained. There is no evidence of acute fracture or dislocation. Mild degenerative changes are noted of the hips. Degenerative changes are noted of the SI joints. The musculature is intact. No soft tissue mass or abnormal fluid collection is seen. IMPRESSION: No fracture or acute bony abnormality. Mild degenerative change. Authenticated and [facility]
--- NOTE | 2023-09-08 12:46 | PC.NURSE ---
pt to CT by wheelchair
--- NOTE | 2023-09-08 12:47 | PC.NURSE ---
pt to CT
--- NOTE | 2023-09-08 12:47 | PC.NURSE ---
PT GOING TO CT
--- NOTE | 2023-09-08 12:47 | PC.NURSE ---
PT TO CT
--- NOTE | 2023-09-08 12:51 | CT_ITS ---
FINAL REPORT CLINICAL HISTORY: fall, T/L spine pain FINDINGS: Axial CT images of the thoracic spine were obtained without contrast. Sagittal and coronal reformatted images were also obtained. This study was performed with techniques to keep radiation doses as low as reasonably achievable (ALARA). Individualized dose reduction techniques using automated exposure control or adjustment of mA and/or kV according to the patient''s size were employed. There is no evidence of fracture. The vertebral alignment is normal. Mild and moderate degenerative changes are seen with multilevel osteophytes present. Mild central canal stenosis is seen at T12-L1. No paraspinous soft tissue abnormality is identified. IMPRESSION: No fracture or acute bony abnormality. Mild and moderate degenerative change. Mild central canal stenosis at T12-L1 Authenticated and [facility]
--- NOTE | 2023-09-08 12:56 | HMH.EDGENADL ---
Discharge Plan Disposition Patient Disposition: Home, Self-Care Chief Complaint: Fall Prescriptions Prescriptions: No Action aspirin [Adult Low Dose Aspirin] 81 mg tablet,delayed release (DR/EC) 81 mg PO DAILY rosuvastatin [Crestor] 20 mg tablet 20 mg PO HS Janumet 50-500 mg tablet 1 tab PO BID Patient Comments: TAKE 1 TABLET BY MOUTH IN THE MORNING triamterene-hydrochlorothiazid 37.5-25 mg tablet 0.5 tab PO DAILY Qty: 30 5RF meclizine 25 mg tablet 25 mg PO TID PRN (Reason: dizziness) Qty: 14 0RF ondansetron 4 mg tablet,disintegrating 4 mg PO TID PRN (Reason: nausea and vomiting) 5 Days Qty: 14 0RF metoprolol succinate [Toprol XL] 25 mg tablet extended release 24 hr 25 mg PO DAILY albuterol sulfate 90 mcg/actuation HFA aerosol inhaler 2 puff INHALATION Q2HP PRN (Reason: SOA) Patient Comments: INHALE 2 PUFFS BY MOUTH 4 TIMES DAILY AND EVERY 2 HOURS NEEDED Referrals Follow up/Referrals: Oracio Tellez MD [Primary Care Provider] - See instructions Activity Restrictions/Add. Instructions Additional Instructions/Restrictions: Call your family doctor to establish care for this visit to the emergency department and schedule follow-up within 48 hours to ensure improvement. If you have any worsening of your condition or any other concerning signs or symptoms, return to the emergency department or your primary care doctor for further evaluation. Stay plenty hydrated Clinical Impressions Clinical Impression: Concussion, Fall Discharge ED Provider: Hema Huff General Adult HPI General Chief complaint: Fall Stated complaint: AO 09/08 HIT HEAD AND BACK Time Seen by Provider: 09/08/23 12:11 Mode of Arrival: Ambulatory Source of Information: Patient Limitations: No Limitations Description of Symptoms (Recalled from ER Triage Doc. by RN): PT REPORTS FALL THIS AM, LOSS OF BALANCE THIS AM WHILE GETTING OUT OF BED ABOUT 0730. REPORTS LOW BACK PAIN, PAIN TO BUTTOCKS AND BACK OF HEAD. UNKNOWN LOC, PT DENIES NECK PAIN History of Present Illness HPI narrative: 73-year-old female history of hypertension, hyperlipidemia, CAD, COPD, diabetes, vertigo presenting with fall. Patient states she stood up out of bed today and lost her balance, tripped, hit the back of her head. Did not lose consciousness, per . Was unconscious for about a minute. Patient states that she is on a blood thinner, but does not member what it is. She is currently hurting and back of her head as well as high thoracic, lower lumbar and sacral spines. Pain is mild to moderate. Able to walk without difficulty. No bowel or bladder incontinence, lower extremity deficits, or any other concerns at this time. Acting normal per Related Data Home Medications Medication Instructions Recorded Confirmed aspirin 81 mg tablet,delayed 81 mg PO DAILY CAD 12/27/17 04/14/23 release (Adult Low Dose Aspirin) rosuvastatin 20 mg tablet (Crestor) 20 mg PO HS Cholesterol 10/22/20 04/14/23 sitagliptin phosphate 50 1 tab PO BID Diabetes 08/11/21 04/14/23 mg-metformin 500 mg tablet (Janumet) albuterol sulfate 90 mcg/actuation 2 puff inhalation Q2HP PRN SOA 11/12/22 04/14/23 aerosol inhaler metoprolol succinate 25 mg 25 mg PO DAILY Heart rhythm 11/12/22 04/14/23 tablet,extended release 24 hr (Toprol XL) Previous Rx's Medication Instructions Recorded triamterene 37.5 0.5 tab PO DAILY High blood 03/18/23 mg-hydrochlorothiazide 25 mg tablet pressure #30 tabs meclizine 25 mg tablet 25 mg PO TID PRN dizziness #14 tabs 05/11/23 ondansetron 4 mg disintegrating 4 mg PO TID PRN nausea and 05/11/23 tablet vomiting 5 days #14 tabs Allergies Allergy/AdvReac Type Severity Reaction Status Date / Time No Known Allergies Allergy Verified 05/11/23 07:47 [facility] Disclaimer: The information contained in this section may have been updated after the patient was seen, as this inform
--- NOTE | 2023-09-08 13:23 | PC.NURSE ---
pt back from CT family at
[2023-09-08 14:05] VITALS: BP 140/64; PULSE 60; RESP 19; TEMP 36.5; O2SAT 98
== END 2023-09-08 14:05 | disposition home or self-care (01) ==
PROVIDERS: Emergency Provider Emergency Medicine; PCP Family Medicine
DX: S09.8XXA Other specified injuries of head, initial encounter (principal); S06.0X0A Concussion without loss of consciousness, initial encounter; I25.10 Atherosclerotic heart disease of native coronary artery without angina pectoris; I11.9 Hypertensive heart disease without heart failure; E78.5 Hyperlipidemia, unspecified; E11.9 Type 2 diabetes mellitus without complications; Z95.0 Presence of cardiac pacemaker; M19.09 Primary osteoarthritis, other specified site; W18.30XA Fall on same level, unspecified, initial encounter; Z79.84 Long term (current) use of oral hypoglycemic drugs
CPT/HCPCS: 70450; 72125; 72128; 72131; 72192; 99285

== ENCOUNTER 2023-10-17 11:31 | Emergency (ER) | payer MEDICARE, SELFPAY ==
[2023-10-17 12:58] VITALS: BP 0/0; PULSE 0; RESP 0; TEMP -17.7; TEMP 0
== END 2023-10-17 13:00 | disposition left against medical advice (07) ==
LOC: UTC 11:35
PROVIDERS: Emergency Provider Nurse Practitioner; PCP Family Medicine
DX: Z53.21 Procedure and treatment not carried out due to patient leaving prior to being seen by health care provider (principal)

== ENCOUNTER 2024-02-01 10:00 | Outpatient (RCR) | payer MEDICARE, SELFPAY ==
--- NOTE | 2024-01-04 13:19 | HMH.PTOPEV ---
PT Outpatient Evaluation Rehab PT Outpatient Evaluation Start: 01/04/24 10:55 Freq: Status: Active Protocol: Document 01/04/24 10:55 LEE (Rec: 01/04/24 13:19 LEE [id number]) E-signed By Corrine Soliz, PT Outpatient Therapy Subjective History Subjective History Pt is a 73 y/o female who reports onset of L>R low back pain on 09/08/23 when she fell after getting out of bed that morning. Pt reports she got really dizzy and fell onto her back and hit her head causing her to lose conciousness. Pt reports she went to [facility] ED that day and was diagnosed with a concussion. Pt reports she has not had a dizzy spell since. Pt had a lumbar spine CT scan on 09/08/23 with impression of Multilevel degenerative change without acute bony abnormality. Pt denies distal symptoms, numbness/tingling, fevers, n/v , b/b dysfunction, or saddle anesthesia. Pt reports pain is aggravated by sitting, standing,prolonged walking, and lifting. Pt reports pain does improve with laying down on her side. Medical History: PACEMAKER, hypertension, hyperlipidemia, CAD, COPD, Type II Diabetes, L TKA 2012 New diagnosis of cancer in past 12 No months? Chief Complaint Pain Symptom Type Ache,Throb Symptoms Relieved By Heat,OTC Meds Symptoms Aggravated By Sitting,Standing,Physical Activity,Walking,Lifting Prior Functional Limitations None Current Functional Limitations Lifting,Housework,Standing, Sitting,Walking,Bending/ Stooping Symptom Description Constant but Variable Level of pain today (0-10) 3 Pain scale - at its best (0-10) 2 Pain scale - at its worst (0-10) 9 Lumbopelvic Eval Palapation tenderness bilateral lumbar spinal tenderness Yes: lumbar SP buttock tenderness Yes: piriformis L>R Lumbar/Sacral Palpation Findings Tenderness Accessory Movement L-spine Vertebrae Accessory Movements Central P/A [place] that Elicit Symptoms L2 bilateral L3 bilateral L4 bilateral L5 bilateral S1 bilateral Range of Motion Lumbar Spine Active Flexion Range of 85 Motion (degrees) Lumbar Spine Active Extension Range of 10 Motion (degrees) Left Lumbar Spine Lateral Flexion Active 20 Range of Motion (degrees) Right Lumbar Spine Lateral Flexion 20 Active Range of Motion (degrees) Lumbar Spine ROM Limitations Pain Manual Muscle Test Bilateral Knee Extension Strength Grade 5 Normal Knee Flexion Strength Grade 5 Normal Hip Flexion Strength Grade 5 Normal Hip Abduction Strength Grade 4 Good Hip Adduction Strength Grade 4 Good Hip Extension Strength Grade 4- Good- Ankle Dorsiflexion Strength Grade 5 Normal Altered Sensation Comment equal and intact to light touch sensation bilaterally Special Tests Sciatic Nerve Tension Test Negative Left,Negative Right Unilateral Straight Leg Raise (Lasegue) Negative Left,Negative Right Test Oswestry Index Section 1 Pain Intensity The pain comes and goes and is severe Section 2 Personal Care (Washing,Dresing) change my way of washing or dressing in order to avoid pain Section 3 Lifting I can lift heavy weights, but it gives me extra pain Section 4 Walking I cannot walk more than 1/2 mile without increasing pain Section 5 Sitting Pain prevents me from sitting for more than one hour Section 6 Standing I have some pain on standing, but it does not increase with time Section 7 Sleeping I get no pain in bed Section 8 Social Life Pain has no significant effect on my social life apart from limiting Section 9 Traveling I get some pain when traveling , but none of my usual forms of travel m Section 10 Changing Degreee of Pain My pain is neither getting better or worse Score and Risk Level Oswestry Sc 17 Oswestry Risk Level Moderate Disability Outpatient Therapy Assessment Impairments Problems/Impairmments Palpation Tenderness,Impaired Range of Motion,Impaired Strength,Impaired Transfers, Impaired Walking,Impaired Standing,Impaired Sitting, Impaired Lifting,Impaired Household Care,Subjective C/O Pain,Impaired Self Care/Self Management Prognosis Rehab Potential Good Clinical Impression Consistent with Diagnosis Yes Short Term Goals Number of Weeks 3 Decrease Subjective C/O Pain Yes: Improve pain at worst to 7/10 to improve overall QOL Improve Self Care/Self Management Yes Patient to be Ind w/ HEP Yes Lead Teacher Goals Number of Weeks 6 Increase Range of Motion Yes: Improve lumbar AROM flex to 90, ext to 15, LF to 25 Increase Strength Yes: Improve LE MMT to 4+/5 grossly to assist with function Increase Ability to Stand Yes: >10' with pain 5/10 or less to assist with ADLs Improve Oswestry Score Yes: Improve score to 12 or less to improve overall QOL Decrease Subjective C/O Pain Yes: Improve pain at worst to 5/10 to improve overall QOL Outpatient Therapy Plan of Care Treatment Plan May Include Therapeutic Exercise Including Home Yes Exercise Program Manual Therapy Techniques Yes Neuromuscular Re-education Yes Therapeutic Activities to Return to Yes Previous Functional/Work Level ADL/Self Care Education Yes Mechanical Traction Yes Dry Needling Yes Thermal Modalities Yes Electrical Stimulation Yes Ultrasound/Phonophoresis Yes Iontophoresis Yes Massage Yes Group Therapy for Medicare Yes Eval/Re-Eval Yes Aquatic Therapy Yes Frequency Times per week 2 Duration Number of Weeks 4-6 Addendums This patient is a candidate for social No or vocational rehab? Patient/Guardian verbally acknowledges Yes understanding of treatment program and consents to further treatment? Patient/Guardian verbally acknowledges Yes understanding of diagnosis, prognosis and goals for treatment? Eval Complexity PT Charges 24342 - Low Complexity Shoulder/Elbow Eval Shoulder Objective Measurements Elbow Objective Measurements PHYSICIAN CERTIFICATION: I certify the specified therapy services for Edyta Christian are required, authorized, and reviewed every 30 days.
--- NOTE | 2024-02-01 11:12 | HMH.RHREAS ---
Rehab Reassessment Rehab OP Re-assessment Start: 01/04/24 10:55 Freq: Status: Active Protocol: Document 02/01/24 10:01 LEE (Rec: 02/01/24 11:12 LEE [id number]) E-signed By Corrine Soliz, PT Oswestry Index Section 1 Pain Intensity The pain comes and goes and is very mild Section 2 Personal Care (Washing,Dresing) change my way of washing or dressing in order to avoid pain Section 3 Lifting I can lift heavy weights without extra pain Section 4 Walking I have some pain when walking but it does not increase with distance Section 5 Sitting I can sit in any chair for as long as I like Section 6 Standing I have some pain on standing, but it does not increase with time Section 7 Sleeping I get no pain in bed Section 8 Social Life My social life is normal and gives me no extra pain Section 9 Traveling I get no pain when traveling Section 10 Changing Degreee of Pain My pain is getting better Score and Risk Level Oswestry Sc 2 Oswestry Risk Level No Disability Rehab Re-assessment Subjective Subjective Pt reports she feels 90% improved since starting PT. Pt reports she has not had any back pain in the past couple days. Pt states she did fall on Wednesday due to slipping on mud in the yard, denies injury or pain from this. 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 Pt reports compliance with HEP which seems to help pain when she performs her exercises. Objective Objective Notes Lumbar AROM: flex 90, ext 20, LF 25 LE MMT: 4+/5 grossly Assessment Progress Assessment Progressing as Expected Assessment Notes Pt has attended 7 PT visits consisting of aerobic exercise , lumbar mobility, LE stretching/strengthening, core strengthening, modalities and HEP with good tolerance. Pt demonstrated improved lumbar AROM, LE strength, subjective report of pain and IZAIAH score this date compared to the initial evaluation. Pt met all PT goals and is appropriate to discharge to independent [facility]. Patient goals met ST/ LT/5 Goals Not Met n/a Revised Goals n/a Plan Plan Discharge to independent HEP Time and Billing Re-Eval Time 16 Re-Eval Billing Units 1 PHYSICIAN CERTIFICATION: I certify the specified therapy services for Edyta Jessicaomon are required, authorized, and reviewed every 30 days.
== END 2024-02-01 11:20 | disposition home or self-care (01) ==
LOC: PT 10:00
PROVIDERS: PCP Family Medicine; Visit Provider Family Medicine
DX: M54.50 Low back pain, unspecified (principal)
CPT/HCPCS: 97010; 97110; 97163; 97164; 97530

== ENCOUNTER 2024-04-10 13:14 | Outpatient (CLI) | payer MEDICARE, SELFPAY ==
--- NOTE | 2024-04-10 13:27 | MM_ITS ---
PROCEDURE INFORMATION: Exam: MG Bilateral Screening 3D Mammography Exam date and time: 04/10/2024 1:53 PM Age: 73 years old Clinical indication: Screening. No family history of breast cancer. TECHNIQUE: Imaging protocol: Bilateral Screening tomosynthesis and 2D mammography including computer-aided detection (CAD) when performed. COMPARISON: 1. MG MM DIG SCREENING MAMM BI W/CAD 03/09/2023 8:10 AM 2. MG MM DIG SCREENING MAMM BI W/CAD 08/26/2021 10:47 AM 3. MG MM DIG SCREENING MAMM BI W/CAD 07/15/2020 8:29 AM 4. MG DMSB DIG MAMM-SCREEN CAYLA W/CAD 03/30/2017 10:09 AM FINDINGS: MAMMOGRAPHY: Breast composition: There are scattered areas of fibroglandular density. Mass: None. Architectural distortion: None. Calcifications: No suspicious calcifications. Asymmetric density: None. Skin thickening: None. Axillary adenopathy: None. Other findings: Pacemaker in the left axilla, limits evaluation and accentuates the importance of clinical breast exam. IMPRESSION: No mammographic evidence of malignancy. Annual screening is recommended unless otherwise clinically indicated. ASSESSMENT: BI-RADS Category 1: Negative
== END 2024-04-10 23:59 | disposition home or self-care (01) ==
LOC: RAD 13:14
PROVIDERS: PCP Family Medicine; Visit Provider Family Medicine
DX: Z12.31 Encounter for screening mammogram for malignant neoplasm of breast (principal)
CPT/HCPCS: 77063; 77067

== ENCOUNTER 2024-05-04 08:58 | Outpatient (CLI) | payer MEDICARE, SELFPAY ==
--- NOTE | 2024-05-04 09:08 | XR_ITS ---
FINAL REPORT TECHNIQUE: Bone mineral density was calculated of the lumbar spine and hip. CLINICAL HISTORY: OSTEOPENIA COMPARISON: 07/15/2020 FINDINGS: Using L1-4, the bone mineral density of the spine is 0.998 g/cm2, corresponding to T-score of -0.4. Using the right hip, the bone mineral density of the femoral neck is 0.822 g/cm2, corresponding to a T-score of -1.0. NOTE: T-score: Standard deviation compared with peak bone mass of young adult mean. *Following the recommendations of the International Society of Bone densitometry, classification of hip BMD is based on the lower of two T-scores; total hip or femoral neck. IMPRESSION: Diminished bone mineral density of the right hip consistent with low bone density. Normal lumbar spine bone mineral density. Reviewed, Interpreted and Dictated by Deon Garcia III, MD Transcribed by Yoselin Mcconnell Authenticated and [facility]
== END 2024-05-04 23:59 | disposition home or self-care (01) ==
LOC: RAD 08:59
PROVIDERS: PCP Family Medicine; Visit Provider Family Medicine
DX: M85.88 Other specified disorders of bone density and structure, other site (principal)
CPT/HCPCS: 77080

== ENCOUNTER 2024-05-08 09:50 | Outpatient (CLI) | payer MEDICARE, SELFPAY ==
--- NOTE | 2024-05-08 09:50 | CA_ITS ---
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 149.0 (50-130 cm/s) AO Peak GR. 8.90 mmHg AO Mean GR. 5.20 (<5 mmHg) AO VTI 29.2 (18-25 cm) IDALIA (VTI) 2.09 (2.5-4.5 cm2) Mitral Valve MV E Max Anthony. 64.0 (40-130 cm/s) MV A Velocity 88.0 (40-130 cm/s) E/A Ratio 0.73 MV PHT 72.0 ms Pulmonary Valve PV Peak Velocity 103.0 (50-150 cm/s) Left Ventricle The left ventricle is normal size. The left ventricular systolic function is normal. The left ventricular ejection fraction is within the normal range. There is increased LV wall thickness. There is normal LV segmental wall motion. Transmitral Doppler flow pattern suggests impaired LV relaxation. LVEF is 55%. Right Ventricle The right ventricle is mildly dilated. The right ventricular systolic function is normal. Atria The left atrium is mildly dilated. The right atrium size is normal. There is no Doppler evidence of interatrial shunt. Aortic Valve Aortic valve is mildly thickened. There is no aortic valvular stenosis. No aortic regurgitation is present. Mitral Valve The mitral valve is normal in structure. No evidence of mitral valve stenosis. There is no mitral valve regurgitation noted. Tricuspid Valve The tricuspid valve leaflets are thin and pliable. Trace tricuspid regurgitation. There is insufficient TR jet to estimate RVSP. Pulmonic Valve The pulmonary valve is normal in structure. Trace pulmonic regurgitation. Great Vessels The aortic root is normal in size. The ascending aorta is normal in size. IVC is normal in size and collapses >50% with inspiration. Pericardium There is no pericardial effusion. Other Information Study Quality: Technically Difficult Conclusion Technically difficult study due to poor acoustic windows. Normal biventricular systolic function. Mild RV dilation. Mild LA dilation. No significant valvular stenosis or regurgitation. Electronically signed by : Ani Means MD 05/11/2024 10:23:12
== END 2024-05-08 23:59 | disposition home or self-care (01) ==
LOC: RT 09:50
PROVIDERS: PCP Family Medicine; Visit Provider Nurse Practitioner
DX: R00.2 Palpitations (principal); I10 Essential (primary) hypertension; E78.2 Mixed hyperlipidemia; Z95.0 Presence of cardiac pacemaker
CPT/HCPCS: 93306

== ENCOUNTER 2024-06-16 10:41 | Outpatient (CLI) | payer MEDICARE, SELFPAY ==
--- NOTE | 2024-06-16 10:49 | XR_ITS ---
FINAL REPORT TECHNIQUE: 5 views CLINICAL HISTORY: ACUTE LEFT SIDE LOWER BACK PAIN FINDINGS: There is no fracture present. There is no malalignment. There is mild diffuse degenerative disc disease. There is moderate lower lumbar facet arthropathy. IMPRESSION: Degenerative changes as above. Reviewed, Interpreted and Dictated by Oracio Talavera MD Transcribed by Lyly Harvey Authenticated and [facility]
== END 2024-06-16 23:59 | disposition home or self-care (01) ==
LOC: RAD 10:42
PROVIDERS: PCP Family Medicine; Visit Provider Family Medicine
DX: M54.42 Lumbago with sciatica, left side (principal)
CPT/HCPCS: 72110

== ENCOUNTER 2024-07-20 11:00 | Outpatient (RCR) | payer MEDICARE, SELFPAY ==
--- NOTE | 2024-06-20 16:57 | HMH.PTOPEV ---
PT Outpatient Evaluation Rehab PT Outpatient Evaluation Start: 06/20/24 09:48 Freq: Status: Active Protocol: Document 06/20/24 09:48 JAYLON (Rec: 06/20/24 11:08 JAYLON [id number]) E-signed By Guilherme Last, PT Outpatient Therapy Subjective History Subjective History Patient is a 73 year old female presenting to outpatient PT with reports of chronic L LBP with LLE radicular symptoms to the L ant knee. Patient experienced a fall approx 8 months ago while getting out of bed at home, landing on her L buttock . ED visit diagnostics/ imaging negative for any IC injury/fracture. Special tests indicate L upslip of he innominant. Comorbidities include hx of pacemaker, L TKA , diabetes, HTN and HL. Patient also complains of poor balance secondary to LLE weakness/dizziness resulting in multiple falls over the past 10 months. Chief Complaint Pain,Gives out/Unstable, Weakness Symptom Type Ache Symptoms Relieved By Rest/Positioning,OTC Meds Symptoms Aggravated By Standing,Bending/Stooping, Physical Activity,Walking, Lifting Prior Functional Limitations None Current Functional Limitations Lifting,Housework,Sleeping, Standing,Walking,Bending/ Stooping Symptom Description Intermittent Level of pain today (0-10) 0 Pain scale - at its best (0-10) 0 Pain scale - at its worst (0-10) 8 Lumbopelvic Eval Posture Thoracic Spine Posture Standing Position Increased Kyphosis Lumbar Spine Posture Standing Position Decreased Lordosis Assistive device Assistive Devices None / NA Palapation tenderness left Lumbar/Sacral Palpation Findings Tenderness Lumbar/Sacral Palpation Overall Comment L PSIS/upper glueal mm 3/4 Accessory Movement S1 left Range of Motion Lumbar Spine Active Flexion Range of WNL Motion (degrees) Lumbar Spine Active Extension Range of WNL Motion (degrees) Left Lumbar Spine Lateral Flexion Active 11 Range of Motion (degrees) Right Lumbar Spine Lateral Flexion WNL Active Range of Motion (degrees) Manual Muscle Test Bilateral Knee Extension Strength Grade 5 Normal Knee Flexion Strength Grade 5 Normal Hip Flexion Strength Grade 5 Normal Extensor Hallucis Longus Strength Grade 5 Normal Ankle Dorsiflexion Strength Grade 5 Normal Gastronemius/Soleus Strength Grade 5 Normal Special Tests Hip Nidhi Test Positive Left Hip Piriformis Test Positive Left Sciatic Nerve Tension Test Positive Left Mirza Test Positive Sacroiliac Joint Compression Test Positive Left Sacroiliac Joint Distraction Test Positive Left Lumbar Long [place] Distraction Test/Manual Negative Traction Oswestry Index Section 1 Pain Intensity The pain comes and goes and is severe Section 2 Personal Care (Washing,Dresing) change my way of washing or dressing in order to avoid pain Section 3 Lifting I can lift heavy weights, but it gives me extra pain Section 4 Walking I cannot walk more than 1/2 mile without increasing pain Section 5 Sitting Pain prevents me from sitting for more than 1/2 hour Section 6 Standing I have some pain on standing, but it does not increase with time Section 7 Sleeping Because of my pain, my normal night's sleep is less than 6 hours sleep Section 8 Social Life My social life is normal but increases the degree of pain Section 9 Traveling I get some pain when traveling , but none of my usual forms of travel m Section 10 Changing Degreee of Pain My pain is gradually getting worse Score and Risk Level Oswestry Sc 20 Oswestry Risk Level Moderate Disability Outpatient Therapy Assessment Impairments Problems/Impairmments Palpation Tenderness,Impaired Range of Motion,Impaired Walking,Impaired Standing, Impaired Lifting,Impaired Household Care,Impaired Bending,Impaired Balance, Subjective C/O Pain Prognosis Rehab Potential Good Clinical Impression Consistent with Diagnosis Yes Short Term Goals Number of Weeks 2 Decrease Subjective C/O Pain Yes: 5/10 at worst Patient to be Ind w/ HEP Yes Longterm Goals Number of Weeks 4-6 Decreased Palpation Tenderness Yes: 1/4 Increase Ability to Walk Yes: 30 min without difficulty Increase Ability to Stand Yes: Improve Ability For Household Care Yes Improve Oswestry Score Yes: mild diability Decrease Subjective C/O Pain Yes: 2/10 at worst Outpatient Therapy Plan of Care Treatment Plan May Include Therapeutic Exercise Including Home Yes Exercise Program Manual Therapy Techniques Yes Neuromuscular Re-education Yes Therapeutic Activities to Return to Yes Previous Functional/Work Level Gait Training Yes ADL/Self Care Education Yes Mechanical Traction Yes Dry Needling Yes Thermal Modalities Yes Electrical Stimulation Yes Ultrasound/Phonophoresis Yes Iontophoresis Yes Orthotics/Bracing/Splinting Yes Massage Yes Eval/Re-Eval Yes Frequency Times per week 2 Duration Number of Weeks 4-6 Addendums This patient is a candidate for social No or vocational rehab? Patient/Guardian verbally acknowledges Yes understanding of treatment program and consents to further treatment? Patient/Guardian verbally acknowledges Yes understanding of diagnosis, prognosis and goals for treatment? Eval Complexity PT Charges 67890 - Moderate Complexity Shoulder/Elbow Eval Shoulder Objective Measurements Elbow Objective Measurements PHYSICIAN CERTIFICATION: I certify the specified therapy services for Edyta Christian are required, authorized, and reviewed every 30 days.
== END 2024-07-20 11:05 | disposition home or self-care (01) ==
LOC: PT 11:00
PROVIDERS: Visit Provider Family Medicine
DX: M54.42 Lumbago with sciatica, left side (principal)
CPT/HCPCS: 97014; 97110; 97163; 97530; G0283

== ENCOUNTER 2024-08-15 10:23 | Day surgery (SDC) | payer MEDICARE, SELFPAY ==
[2024-08-15 10:31] VITALS: BP 133/60; PULSE 70; RESP 16; TEMP 36.9; O2SAT 99; BMI 27.6
[2024-08-15] MEDS: LIDOCAINE 1% 5ML PF VIAL 5 ML (10:45)
[2024-08-15] MEDS: methylPREDNISolone ACETATE 80MG/ML VIAL 80 MG (10:45)
[2024-08-15] MEDS: BUPIVACAINE 0.25% 10ML INJ 25 MG IJ (10:45)
[2024-08-15 10:46] VITALS: BP 167/68; PULSE 70; RESP 18; O2SAT 97
[2024-08-15 10:48] VITALS: BP 167/68; PULSE 69; RESP 18; O2SAT 97
[2024-08-15 10:53] VITALS: BP 143/70; PULSE 70; RESP 18; O2SAT 99
--- NOTE | 2024-08-15 11:05 | EXP.PAIN.PRO ---
Procedure Date: 08/15/24 Time: 10:50 Anesthesiologist:: Branydn Ortiz CRNA Complications:: None Pre-procedure Diagnosis:: Left sacroiliitis Post-procedure Diagnosis:: Same Indications for Procedure:: Patient is a very pleasant 74-year-old female comes our clinic today for a left sacroiliac joint injection of cortisone and local anesthetic. Patient describes low lumbar back pain off the midline to the left. Also, left posterior hip pain. Difficulty with ambulation due to these symptoms. She rates her pain 7/10. Procedure Details:: Procedure: Left sacroiliac injection under fluoroscopy Informed consent was obtained and the risk and benefits of the procedure were explained to the patient.~ The patient was taken to the procedure room and noninvasive monitors were placed including noninvasive blood pressure cuff and pulse oximeter.~ The patient was placed prone on the procedure table.~ The~ left hip was cleansed using Betadine as a cleansing solution.~ C-arm fluorosocpy was used to view the left SI joint.~ The skin and subcutaneous tissues were anesthetized using Lidocaine 1.5% and a 25-gauge needle.~ After this, a 22-gauge spinal needle was inserted under fluoroscopic guidance into the inferior aspect of the left SI joint.~ Omnipaque dye was injected and a good spread was seen throughout the joint.~ After this, approximately 5 mL of bupivacaine 0.25% and Depo-Medrol 40 mg was incrementally injected into the sacroiliac joint.~ The patient tolerated the procedure well with no complications.~ The patient was observed in the Pain Clinic for a period of 30-45 minutes, then discharged home neurologically intact.~ Plan and Disposition:: Patient was discharged without incident.
== END 2024-08-15 10:53 | disposition home or self-care (01) ==
LOC: SC.PAINP 10:25
PROVIDERS: PCP Family Medicine; Visit Provider Nurse Anesthetist, Certified Registered
DX: M46.1 Sacroiliitis, not elsewhere classified (principal)
CPT/HCPCS: 27096; G0260; J1010

== ENCOUNTER 2024-09-11 14:17 | Outpatient (POV) | payer MEDICARE, SELFPAY ==
--- NOTE | 2024-09-11 15:04 | A.OFFVIS_ITS ---
[facility] Disclaimer: The information contained in this section may have been updated after the patient was seen, as this information can be updated by other users. Medical History Fibrosis of lung Asthma Fall Dyspnea Chest pain Pleurisy History of pacemaker Right middle lobe pneumonia Pneumonia Pleuritis Pneumonia Chest wall pain Bone spur Small spur projects distally at the posterior aspect of the navicular Calcaneal spur There is a small calcaneal spur and calcaneal enthesophyte at the Achilles insertion. Osteoarthritis Minimal osteoarthritic changes are present involving the 1st metatarsophalangeal joint. Right ankle instability Right ankle pain Edema of soft tissue of right ankle region Achilles tendinitis Sprain of right ankle Normal coronary arteries OCT 2020 Grade I diastolic dysfunction Abnormal cardiovascular stress test Abnormal EKG Atypical angina Yeast infection Facial pain Sinusitis, acute Bronchitis Exertional dyspnea Symptomatic sinus bradycardia Surgical History History of left knee replacement Family History Other Cancer Diabetes Hypertension Social History Smoking Status: Never smoker second hand exposure: No alcohol intake: never substance use type: denies use current occupational status: retired Travel in the last 8 weeks: None household members: spouse housing: house current occupational exposures/hazards: No caffeine: Yes PM Subjective & Objective Subjective Subjective:: Patient is a pleasant 74-year-old female who presents today for follow-up of left SI injection on 08/15/2024. Today she rates her pain a 7 out of 10. Patient does state that she had 100% relief lasting for 4 days. She states that did not seem like the pain started to slowly come back. Patient states that today is not as bad however was pretty significant that she had to stop and take multiple breaks due to the worsening pain. She denies any new trauma or injury. Patient does state that she continues to have the left-sided buttocks/hip pain that does go into her upper thigh. Her Sánchez has been reviewed and is appropriate. Review of Systems: General: No recent weight changes, no fever, no sleep disturbances Respiratory: No cough, no shortness of air, no recurring pulmonary infections Cardiovascular/peripheral vascular: No chest pain, no palpitations, no edema, no shortness of breath Gastrointestinal: No new onset incontinence, normal bowel movements reported Genitourinary: No new onset incontinence Musculoskeletal: Low back pain Psychiatric: [Normal mood/affect] Neurological: [Denies weakness in extremities], [denies balance issues] Pain at rest (0-10 scale): 7 Objective Objective:: Physical Exam: General: Alert and oriented x3, no acute distress, pleasant and cooperative Lungs: Respirations even and unlabored, symmetrical chest expansion Eyes: PERRL Musculoskeletal: Flexion and extension of lumbar [spine] somewhat guarded secondary to pain, [antalgic gait noted] Neurological: Speech clear, no gross sensory deficit Has patient had previous pain injection?: Yes Percent improvement in pain since last injection: 100% Conservative treatment options previously tried: Home exercise plan Length of treatment: Longer than 12 weeks Meds Home Medications and Allergies Home Medications ?Medication ?Instructions ?Recorded ?Confirmed ?Type aspirin 81 mg tablet,delayed 81 mg PO DAILY CAD 12/27/17 08/15/24 History release (Adult Low Dose Aspirin) sitagliptin phosphate 50 1 tab PO BID Diabetes 08/11/21 08/15/24 History mg-metformin 500 mg tablet (Janumet) budesonide-formoterol HFA 80 1 inh inhalation QID PRN shortness 10/05/23 08/15/24 Rx mcg-4.5 mcg/actuation aerosol of breath or wheezing 90 days inhaler (Symbicort) #10.2 grams metoprolol succinate 25 mg See Rx Instructions .Route 10/18/23 08/15/24 Rx tablet,extended release 24 hr .COMPLEX #90 tabs glimepiride 2 mg tablet 2 mg PO DAILY 04/12/24 08/15/24 History rosuvastatin 40 mg tablet 40 mg PO DAILY 04/12/24 08/15/24 History triamterene 37.5 0.5 tab PO DAILY High blood 06/14/24 08/15/24 Rx mg-hydrochlorothiazide 25 mg tablet pressure 90 days #45 tabs New Prescriptions to Start Prescriptions: Allergies Allergy/AdvReac Type Severity Reaction Status Date / Time No Known Allergies Allergy Verified 08/15/24 10:31 Assessment and Plan *Assessment and plan (1) Sacroiliitis: Status: Acute Category: Medical Code(s): M46.1 - Sacroiliitis, not elsewhere classified (2) Degenerative disc disease, lumbar: Status: Acute Category: Medical Code(s): M51.36 - Other intervertebral disc degeneration, lumbar region Plan Patient did have significant improvement following her initial SI injection. Patient is experiencing little bit more pain going into her left upper leg. I did discuss with the patient in future she may benefit from a left transforaminal injection. We will follow-up with this at future visits. I will order the patient a compounded cream. Patient will return to clinic in 2 weeks for reevaluation of symptoms and plan of care. Patient has been instructed to contact the clinic with any concerns before the next appointment. Dr. Isaac has reviewed this note and agrees with this plan of care. This note was dictated using voice recognition software and make contain errors or omissions. All injections are used with Lidocaine or Bupivacaine and Depo Medrol.
[2024-09-11 15:06] VITALS: BP 112/50; PULSE 70; RESP 18; O2SAT 99; BMI 27.4
== END 2024-09-11 23:59 | disposition home or self-care (01) ==
LOC: SC.PAIN 14:19
PROVIDERS: PCP Family Medicine; Visit Provider Nurse Practitioner Family
DX: M46.1 Sacroiliitis, not elsewhere classified (principal); Z96.652 Presence of left artificial knee joint; M51.369 Other intervertebral disc degeneration, lumbar region without mention of lumbar back pain or lower extremity pain
CPT/HCPCS: 99212; G0463

== ENCOUNTER 2024-09-12 17:53 | Emergency (ER) | payer MEDICARE, SELFPAY ==
[2024-09-12 17:54] VITALS: BP 131/59; PULSE 70; RESP 18; TEMP 36.6; O2SAT 95; BMI 27.4
--- NOTE | 2024-09-12 17:56 | HMH.EDGENADL ---
Discharge Plan Disposition Patient Disposition: Home, Self-Care Condition: Good Prescriptions Prescriptions: No Action aspirin [Adult Low Dose Aspirin] 81 mg tablet,delayed release (DR/EC) 81 mg PO DAILY Janumet 50-500 mg tablet 1 tab PO BID Patient Comments: TAKE 1 TABLET BY MOUTH IN THE MORNING rosuvastatin 40 mg tablet 40 mg PO DAILY Patient Comments: TAKE 1 TABLET BY MOUTH ONCE DAILY FOR 90 DAYS glimepiride 2 mg tablet 2 mg PO DAILY Patient Comments: TAKE 1 TABLET BY MOUTH ONCE DAILY WITH BREAKFAST OR THE FIRST MAIN MEAL OF THE DAY budesonide-formoterol [Symbicort] 80-4.5 mcg/actuation HFA aerosol inhaler 1 inh inhalation QID PRN (Reason: shortness of breath or wheezing) 90 Days Qty: 10.2 2RF metoprolol succinate 25 mg tablet extended release 24 hr See Rx Instructions .ROUTE .COMPLEX Qty: 90 1RF Dose Instruction: Take 1 tablet by mouth once daily Rx Instructions: Take 1 tablet by mouth once daily triamterene-hydrochlorothiazid 37.5-25 mg tablet 0.5 tab PO DAILY 90 Days Qty: 45 1RF Referrals Follow up/Referrals: Oracio Tellez MD [Primary Care Provider] - See instructions Activity Restrictions/Add. Instructions Additional Instructions/Restrictions: Continue with the disimpaction sheet that I gave you. Follow-up with your PCP for further recommendations if your constipation continues. Return to ER for any worsening signs or symptoms as needed. Clinical Impressions Clinical Impression: Constipation Qualifiers: Constipation type: unspecified constipation type Qualified Code(s): K59.00 - Constipation, unspecified Instructions Patient Instructions: DI for Constipation Print Language Print Language: Citizen Of [place] Discharge ED Provider: Hema Huff General Adult HPI <JUANITA Hardin - Last Filed: 09/12/24 19:39> General Chief complaint: Abdominal Pain Stated complaint: Unable to have bowel movement Time Seen by Provider: 09/12/24 17:56 History of Present Illness HPI narrative: Patient presents for evaluation of constipation. Patient states that she has not had a bowel movement in 2 weeks. She reports that she feels like she has to go but cannot. She feels rectal pressure but is unable to notice whether she has reachable stool. She denies nausea vomiting diarrhea intolerance of food or liquids chest pain shortness of breath fever chills hemoptysis hematochezia melena hematemesis hematuria. Patient is passing flatus daily. She has tried no tvda-lyg-mumqknb remedies at home. She reports that she has discomfort in her low back with no focal neurologic signs or deficits. She has no incontinence. Related Data Home Medications ?Medication ?Instructions ?Recorded ?Confirmed aspirin 81 mg tablet,delayed 81 mg PO DAILY CAD 12/27/17 09/11/24 release (Adult Low Dose Aspirin) sitagliptin phosphate 50 1 tab PO BID Diabetes 08/11/21 09/11/24 mg-metformin 500 mg tablet (Janumet) glimepiride 2 mg tablet 2 mg PO DAILY 04/12/24 09/11/24 rosuvastatin 40 mg tablet 40 mg PO DAILY 04/12/24 09/11/24 Previous Rx's ?Medication ?Instructions ?Recorded budesonide-formoterol HFA 80 1 inh inhalation QID PRN shortness 10/05/23 mcg-4.5 mcg/actuation aerosol of breath or wheezing 90 days inhaler (Symbicort) #10.2 grams metoprolol succinate 25 mg See Rx Instructions .Route 10/18/23 tablet,extended release 24 hr .COMPLEX #90 tabs triamterene 37.5 0.5 tab PO DAILY High blood 06/14/24 mg-hydrochlorothiazide 25 mg tablet pressure 90 days #45 tabs Allergies Allergy/AdvReac Type Severity Reaction Status Date / Time No Known Allergies Allergy Verified 08/15/24 10:31 [facility] <JUANITA Hardin - Last Filed: 09/12/24 19:39> [facility] Disclaimer: The information contained in this section may have been updated after the patient was seen, as this information can be updated by other users. Medical History Fibrosis of lung Asthma Fall Dyspnea Chest pain Pleurisy History of pacemaker Right middle lobe pneumonia Pneumonia Pleuritis Pneumonia Chest wall pain Bone spur Small spur projects distally at the posterior aspect of the navicular Calcaneal spur There is a small calcaneal spur and calcaneal enthesophyte at the Achilles insertion. Osteoarthritis Minimal osteoarthritic changes are present involving the 1st metatarsophalangeal joint. Right ankle instability Right ankle pain Edema of soft tissue of right ankle region Achilles tendinitis Sprain of right ankle Normal coronary arteries OCT 2020 Grade I diastolic dysfunction Abnormal cardiovascular stress test Abnormal EKG Atypical angina Yeast infection Facial pain Sinusitis, acute Bronchitis Exertional dyspnea Symptomatic sinus bradycardia Surgical History History of left knee replacement Family History Other Cancer Diabetes Hypertension Social History Smoking Status: Never smoker second hand exposure: No alcohol intake: never substance use type: denies use current occupational status: retired Travel in the last 8 weeks: None household members: spouse housing: house current occupational exposures/hazards: No caffeine: Yes Other Medical History Have you received the Flu Vaccine for this season: Yes Have you received the Pneumonia Vaccine: Yes <JUANITA Hardin - Last Filed: 09/12/24 19:39> ROS Obtained: Yes Systems reviewed as appropriate & no additional complaints except as documented Physical Exam <JUANITA Hardin - Last Filed: 09/12/24 19:39> General General appearance: alert and in no apparent distress Respiratory Respiratory exam: Present normal lung sounds bilaterally Cardiovascular Cardiovascular exam: Present regular rate Neurological Exam Neurological exam: Present alert and oriented X3 Medical Decision Making <JUANITA Hardin - Last Filed: 09/12/24 19:39> Medical Records Screening: Per USPSTF and CDC recommendations, given the prevalence of disease in our region, it is our hospital?s policy to screen for HIV and viral Hepatitis for all patients aged 18 and over and those with ongoing risk factors. Sánchez Inquiry Pt receiving controlled substance: No Vital Signs: 09/12/24 17:54 09/12/24 18:31 09/12/24 19:45 Temperature 97.8 F 98.2 F Temperature Source Oral Pulse Rate 70 70 Pulse Rate [Radial] 70 Respiratory Rate 18 20 Blood Pressure 159/79 H 131/59 L Blood Pressure [Right Arm] 131/59 L Blood Pressure Mean [Right Arm] 83 Blood Pressure Source [Right Arm] Automatic Cuff Blood Pressure Position [Right Arm] Sitting 02 Sat by Pulse Oximetry 95 95 Oxygen Delivery Method Room Air Room Air Orders (Tests/Meds): ORDERS Category Date Time Status KUB (single view) [XR KUB] Stat Exams 09/12/24 18:09 Completed Medical Decision Narrative: In summary patient is a 74-year-old female who presents to the emergency department for evaluation of constipation. Patient is hematologically stable upon arrival, and afebrile. Physical exam is remarkable for abdominal discomfort no rebound or guarding no rigidity. Bowel sounds normal active. Differential diagnosis includes constipation versus gastroenteritis. Initial workup will be conducted with KUB for now as patient has no red flags for more extensive evaluation currently. Initial interventions deferred until KUB. Initial workup reviewed by me patient shows significant stool burden throughout the entire abdomen but no evidence of dilated bowel loops or air-fluid levels and she is tolerant of oral intake. Given this we will attempt an enema in the emergency department. Patient had excellent response to intermittent ministration with bowel movement and complete resolution of all of her symptoms. Given this patient is appropriate for discharge with disimpaction sheet and follow-up with her PCP for for any persistent symptoms. <Hema Huff MD - Last Filed: 09/12/24 20:50> Vital Signs: 09/12/24 17:54 09/12/24 18:31 09/12/24 19:45 Temperature 97.8 F 98.2 F Temperature Source Oral Pulse Rate 70 70 Pulse Rate [Radial] 70 Respiratory Rate 18 20 Blood Pressure 159/79 H 131/59 L Blood Pressure [Right Arm] 131/59 L Blood Pressure Mean [Right Arm] 83 Blood Pressure Source [Right Arm] Automatic Cuff Blood Pressure Position [Right Arm] Sitting 02 Sat by Pulse Oximetry 95 95 Oxygen Delivery Method Room Air Room Air Orders (Tests/Meds): ORDERS Category Date Time Status KUB (single view) [XR KUB] Stat Exams 09/12/24 18:09 Completed Medical Decision Narrative: In summary patient is a 74-year-old female who presents to the emergency department for evaluation of constipation. Patient is hematologically stable upon arrival, and afebrile. Physical exam is remarkable for abdominal discomfort no rebound or guarding no rigidity. Bowel sounds normal active. Differential diagnosis includes constipation versus gastroenteritis. Initial workup will be conducted with KUB for now as patient has no red flags for more extensive evaluation currently. Initial interventions deferred until KUB. Initial workup reviewed by me patient shows significant stool burden throughout the entire abdomen but no evidence of dilated bowel loops or air-fluid levels and she is tolerant of oral intake. Given this we will attempt an enema in the emergency department. Patient had excellent response to intermittent ministration with bowel movement and complete resolution of all of her symptoms. Given this patient is appropriate for discharge with disimpaction sheet and follow-up with her PCP for for any persistent symptoms. I was consulted by the LEANDER, and we discussed the complexity of the problems being addressed. I approved the treatment and management plan for this patient's care in the Emergency Department, thus performing a substantive portion of the medical decision making. Hema Huff MD Critical Care <JUANITA Hardin - Last Filed: 09/12/24 19:39> Critical Care Time Critical Care Time: No
--- NOTE | 2024-09-12 17:57 | PC.NURSE ---
DON PAC AT BEDSIDE
--- NOTE | 2024-09-12 18:09 | XR_ITS ---
PROCEDURE INFORMATION: Exam: XR Abdomen Exam date and time: 09/12/2024 6:09 PM Age: 74 years old Clinical indication: Constipation; Additional info: Constipation abdominal pain TECHNIQUE: Imaging protocol: Radiologic exam of the abdomen. Views: Frontal supine view of the abdomen. 1 View. COMPARISON: ABDPELW/O CT ABD PELVIS W/O CONTRAST 09/13/2017 7:44 AM FINDINGS: Gastrointestinal tract: Constipation throughout the colon. The rectum is distended 8.5 cm consistent with fecal impaction. No dilated bowel. Intraperitoneal space: Surgical clips in the right upper quadrant Bones/joints: Unremarkable. IMPRESSION: 1. Constipation throughout the colon. 2. The rectum is distended 8.5 cm consistent with fecal impaction. 3. No dilated bowel.
--- NOTE | 2024-09-12 18:18 | PC.NURSE ---
PT TO XR
[2024-09-12 18:31] VITALS: BP 159/79; PULSE 70; O2SAT 95
[2024-09-12 19:45] VITALS: BP 131/59; PULSE 70; RESP 20; TEMP 36.8; O2SAT 97
== END 2024-09-12 19:46 | disposition home or self-care (01) ==
PROVIDERS: Emergency Provider Emergency Medicine; PCP Family Medicine
DX: K59.00 Constipation, unspecified (principal)
CPT/HCPCS: 74018; 99283

== ENCOUNTER 2024-09-27 09:22 | Outpatient (POV) | payer MEDICARE, SELFPAY ==
[2024-09-27 09:50] VITALS: BP 134/58; PULSE 70; RESP 16; O2SAT 100; BMI 27.6
--- NOTE | 2024-09-27 12:21 | EXP.PAIN.SOA ---
[facility] Disclaimer: The information contained in this section may have been updated after the patient was seen, as this information can be updated by other users. Medical History Fibrosis of lung Asthma Fall Dyspnea Chest pain Pleurisy History of pacemaker Right middle lobe pneumonia Pneumonia Pleuritis Pneumonia Chest wall pain Bone spur Small spur projects distally at the posterior aspect of the navicular Calcaneal spur There is a small calcaneal spur and calcaneal enthesophyte at the Achilles insertion. Osteoarthritis Minimal osteoarthritic changes are present involving the 1st metatarsophalangeal joint. Right ankle instability Right ankle pain Edema of soft tissue of right ankle region Achilles tendinitis Sprain of right ankle Normal coronary arteries OCT 2020 Grade I diastolic dysfunction Abnormal cardiovascular stress test Abnormal EKG Atypical angina Yeast infection Facial pain Sinusitis, acute Bronchitis Exertional dyspnea Symptomatic sinus bradycardia Surgical History History of left knee replacement Family History Other Cancer Diabetes Hypertension Social History Smoking Status: Never smoker second hand exposure: No alcohol intake: never substance use type: denies use current occupational status: other Travel in the last 8 weeks: None household members: spouse housing: house current occupational exposures/hazards: No caffeine: Yes PM Subjective & Objective Subjective Subjective:: Patient is a pleasant 74-year-old female who presents today for follow-up. Today she rates her pain a 5 out of 10. Patient states that she is still experiencing chronic low back pain primarily on the left side that does go down into her left lower extremity. Patient describes it as an aching, throbbing sensation with numbness down to her knee. Patient does state the pain interferes with her ability perform activities of daily living such as cooking and cleaning. Patient has tried and failed conservative therapy including continued at home stretching exercise for longer than 12 weeks. Patient did previously have a left SI injection back in July that did provide 100% relief but only lasted 4 days. She does state that the compounded cream did seem to help a little. Patient does also make mention that she did recently have her left knee give out and caused her to fall in the bathtub. Patient states she fell more on the right side and that she was a little sore but denies any significant injury. Her Sánchez has been reviewed and is appropriate. Review of Systems: General: No recent weight changes, no fever, no sleep disturbances Respiratory: No cough, no shortness of air, no recurring pulmonary infections Cardiovascular/peripheral vascular: No chest pain, no palpitations, no edema, no shortness of breath Gastrointestinal: No new onset incontinence, normal bowel movements reported Genitourinary: No new onset incontinence Musculoskeletal: Low back pain, left leg pain Psychiatric: [Normal mood/affect] Neurological: [Denies weakness in extremities], [denies balance issues] Pain at rest (0-10 scale): 5 Objective Objective:: Physical Exam: General: Alert and oriented x3, no acute distress, pleasant and cooperative Lungs: Respirations even and unlabored, symmetrical chest expansion Eyes: PERRL Musculoskeletal: Flexion and extension of lumbar [spine] somewhat guarded secondary to pain, [antalgic gait noted] positive left leg raise with decreased sensation to light touch and decreased reflexes Neurological: Speech clear, no gross sensory deficit Has patient had previous pain injection?: No Conservative treatment options previously tried: Home exercise plan Length of treatment: Longer than 12 weeks Meds Home Medications and Allergies Home Medications ?Medication ?Instructions ?Recorded ?Confirmed ?Type aspirin 81 mg tablet,delayed 81 mg PO DAILY CAD 12/27/17 09/27/24 History release (Adult Low Dose Aspirin) sitagliptin phosphate 50 1 tab PO BID Diabetes 08/11/21 09/27/24 History mg-metformin 500 mg tablet (Janumet) budesonide-formoterol HFA 80 1 inh inhalation QID PRN shortness 10/05/23 09/27/24 Rx mcg-4.5 mcg/actuation aerosol of breath or wheezing 90 days inhaler (Symbicort) #10.2 grams metoprolol succinate 25 mg See Rx Instructions .Route 10/18/23 09/27/24 Rx tablet,extended release 24 hr .COMPLEX #90 tabs glimepiride 2 mg tablet 2 mg PO DAILY 04/12/24 09/27/24 History rosuvastatin 40 mg tablet 40 mg PO DAILY 04/12/24 09/27/24 History triamterene 37.5 0.5 tab PO DAILY High blood 06/14/24 09/27/24 Rx mg-hydrochlorothiazide 25 mg tablet pressure 90 days #45 tabs New Prescriptions to Start Prescriptions: Allergies Allergy/AdvReac Type Severity Reaction Status Date / Time No Known Allergies Allergy Verified 08/15/24 10:31 Assessment and Plan *Assessment and plan (1) Degenerative disc disease, lumbar: Status: Acute Category: Medical Code(s): M51.36 - Other intervertebral disc degeneration, lumbar region (2) Lumbar radiculopathy: Status: Acute Category: Medical Code(s): M54.16 - Radiculopathy, lumbar region Plan Patient is experiencing worsening pain in her low back along the left side with numbness and tingling down into the left extremity. Patient did have a positive left leg raise with decreased sensation light touch and decreased reflexes during today's exam. I did discuss with patient that I do believe she would benefit from a left transforaminal epidural steroid injection. Risk and benefits were discussed with the patient and she would like to proceed forward with this plan of care. Patient has tried and failed conservative therapy including continued at home stretching exercise for longer than 12 weeks. Patient will be submitted for a left transforaminal epidural steroid injection L4-L5 and L5-S1 under fluoroscopy. Patient is currently on blood thinners. We will reach out to her provider and confirm she can stop this medication prior to this injection. Patient agrees with this plan of care. Patient has been instructed to contact the clinic with any concerns before the next appointment. Dr. Isaac has reviewed this note and agrees with this plan of care. This note was dictated using voice recognition software and make contain errors or omissions. All injections are used with Lidocaine or Bupivacaine and Depo Medrol.
== END 2024-09-27 23:59 | disposition home or self-care (01) ==
LOC: SC.PAIN 09:24
PROVIDERS: PCP Family Medicine; Visit Provider Nurse Practitioner Family
DX: M51.16 Intervertebral disc disorders with radiculopathy, lumbar region (principal); Z96.652 Presence of left artificial knee joint; Z73.89 Other problems related to life management difficulty; Z79.84 Long term (current) use of oral hypoglycemic drugs
CPT/HCPCS: 99212; G0463

== ENCOUNTER 2024-10-24 10:01 | Day surgery (SDC) | payer MEDICARE, SELFPAY ==
[2024-10-24 10:20] VITALS: BP 111/66; PULSE 70; RESP 16; TEMP 36.8; O2SAT 99; BMI 27.6
[2024-10-24 10:30] LABS: POC Glucose,Bedside 203 (70-110)
[2024-10-24 10:46] VITALS: BP 122/63; PULSE 69; RESP 18; O2SAT 97
[2024-10-24] MEDS: LIDOCAINE 1% 5ML PF VIAL 5 ML (10:46)
[2024-10-24 10:49] VITALS: BP 122/63; PULSE 69; RESP 18; O2SAT 97
[2024-10-24 10:57] VITALS: BP 140/66; PULSE 71; RESP 16; O2SAT 98
--- NOTE | 2024-10-24 10:57 | EXP.PAIN.PRO ---
Procedure Date: 10/24/24 Time: 10:40 Anesthesiologist:: Brandyn Ortiz CRNA Complications:: None Pre-procedure Diagnosis:: Degenerative disc lumbar spine multilevels. Lumbar radiculopathy. Disc bulge L4-5. Post-procedure Diagnosis:: Same. Indications for Procedure:: Patient is a pleasant 74-year-old female comes our clinic today for a left L4-5 transforaminal epidural steroid injection. Patient describes low left lumbar back pain as well as left leg radicular symptoms. She describes the low back pain as constant, dull, aching. She rates her pain 7/10. Procedure Details:: Details of the procedure explained to the patient. The patient taken procedure room placed in the prone position on the fluoroscopy table. The area over the lumbar spine was cleansed using chlorhexidine as a cleansing solution. Using a 22-gauge 3-1/2 inch spinal needle the left L4-5 upper one third foramen was accessed with ease. Needle position was confirmed with positive neurogram. After negative aspiration 1.5 mL of 1% lidocaine and 40 mg of Depo-Medrol was injected. Patient tolerated procedure without difficulty. There are no complications. Plan and Disposition:: Patient was discharged without incident.
[2024-10-24] MEDS: IOPAMIDOL-200 (41%);10ML VIAL 10 ML IV (10:58)
== END 2024-10-24 10:57 | disposition home or self-care (01) ==
PROVIDERS: PCP Family Medicine; Visit Provider Nurse Anesthetist, Certified Registered
DX: M51.16 Intervertebral disc disorders with radiculopathy, lumbar region (principal)
CPT/HCPCS: 64483; 82962; J1010; Q9966

== ENCOUNTER 2024-11-23 10:12 | Outpatient (POV) | payer MEDICARE, SELFPAY ==
[2024-11-23 11:19] VITALS: BP 105/59; PULSE 70; RESP 14; O2SAT 97; BMI 27.4
--- NOTE | 2024-11-23 11:20 | EXP.PAIN.SOA ---
[facility] Disclaimer: The information contained in this section may have been updated after the patient was seen, as this information can be updated by other users. Medical History Fibrosis of lung Asthma Fall Dyspnea Chest pain Pleurisy History of pacemaker Right middle lobe pneumonia Pneumonia Pleuritis Pneumonia Chest wall pain Bone spur Small spur projects distally at the posterior aspect of the navicular Calcaneal spur There is a small calcaneal spur and calcaneal enthesophyte at the Achilles insertion. Osteoarthritis Minimal osteoarthritic changes are present involving the 1st metatarsophalangeal joint. Right ankle instability Right ankle pain Edema of soft tissue of right ankle region Achilles tendinitis Sprain of right ankle Normal coronary arteries OCT 2020 Grade I diastolic dysfunction Abnormal cardiovascular stress test Abnormal EKG Atypical angina Yeast infection Facial pain Sinusitis, acute Bronchitis Exertional dyspnea Symptomatic sinus bradycardia Surgical History History of left knee replacement Family History Other Cancer Diabetes Hypertension Social History Smoking Status: Never smoker second hand exposure: No alcohol intake: never substance use type: denies use current occupational status: other Travel in the last 8 weeks: None household members: spouse housing: house current occupational exposures/hazards: No caffeine: Yes PM Subjective & Objective Subjective Subjective:: Patient is a pleasant 74-year-old female who presents today for follow-up of her left transforaminal epidural steroid injection L4-L5 on 10/24/2024. Today she rates her pain an 8 out of 10. Patient states the pain is all open around her left hip and buttocks area. Patient states that it stays right in that area with pressure and worsening pain with increased activity or ambulation. She does state the pain is interfering with her ability perform activities of daily living such as cooking and cleaning. Patient does state that the last injection did provide upwards of 50 to 75% relief however as time went on it did become less effective. Patient states that it may be still helping some currently however the pain in her buttocks and hip area is much worse. Prior to the last epidural she had had a left SI injection in July that did provide 100% relief however only lasted for short period of time. Patient does state that that injection worked wonderful and just which did not last longer. Her Sánchez has been reviewed and is appropriate. Review of Systems: General: No recent weight changes, no fever, no sleep disturbances Respiratory: No cough, no shortness of air, no recurring pulmonary infections Cardiovascular/peripheral vascular: No chest pain, no palpitations, no edema, no shortness of breath Gastrointestinal: No new onset incontinence, normal bowel movements reported Genitourinary: No new onset incontinence Musculoskeletal: Low back pain, left hip/buttocks pain Psychiatric: [Normal mood/affect] Neurological: [Denies weakness in extremities], [denies balance issues] Pain at rest (0-10 scale): 8 Objective Objective:: Physical Exam: General: Alert and oriented x3, no acute distress, pleasant and cooperative Lungs: Respirations even and unlabored, symmetrical chest expansion Eyes: PERRL Musculoskeletal: Flexion and extension of lumbar [spine] somewhat guarded secondary to pain, [antalgic gait noted] point tenderness along left SI with positive left Zaki's, Iraida's, Gaenslen's, compression and distraction exam Neurological: Speech clear, no gross sensory deficit Has patient had previous pain injection?: Yes Percent improvement in pain since last injection: 50 to 75% Conservative treatment options previously tried: Home exercise plan Length of treatment: Longer than 12 weeks Meds Home Medications and Allergies Home Medications ?Medication ?Instructions ?Recorded ?Confirmed ?Type aspirin 81 mg tablet,delayed 81 mg PO DAILY CAD 12/27/17 11/02/24 History release (Adult Low Dose Aspirin) sitagliptin phosphate 50 1 tab PO BID Diabetes 08/11/21 11/02/24 History mg-metformin 500 mg tablet (Janumet) budesonide-formoterol HFA 80 1 inh inhalation QID PRN shortness 10/05/23 11/02/24 Rx mcg-4.5 mcg/actuation aerosol of breath or wheezing 90 days inhaler (Symbicort) #10.2 grams glimepiride 2 mg tablet 2 mg PO DAILY 04/12/24 11/02/24 History rosuvastatin 40 mg tablet 40 mg PO DAILY 04/12/24 11/02/24 History triamterene 37.5 0.5 tab PO DAILY High blood 07/24/24 12/12/24 Rx mg-hydrochlorothiazide 25 mg tablet pressure 90 days #45 tabs metoprolol succinate 25 mg See Rx Instructions .Route 11/02/24 11/02/24 Rx tablet,extended release 24 hr .COMPLEX #90 tabs New Prescriptions to Start Prescriptions: Allergies Allergy/AdvReac Type Severity Reaction Status Date / Time No Known Allergies Allergy Verified 11/02/24 08:53 Assessment and Plan *Assessment and plan (1) Sacroiliitis: Status: Acute Category: Medical Code(s): M46.1 - Sacroiliitis, not elsewhere classified (2) Degenerative disc disease, lumbar: Status: Acute Category: Medical Code(s): M51.369 - Other intervertebral disc degeneration, lumbar region without mention of lumbar back pain or lower extremity pain Plan Patient is experiencing worsening pain in her low back, left hip and buttocks area. Patient did have limited range of motion of her lumbar spine with point tenderness along her left SI and a positive left Zaki's, Iraida's, Gaenslen's, compression and distraction exam. Patient did previously have her first diagnostic SI injection back in July that did provide 100% relief however only lasted temporarily. Patient did have improved function with decreased pain during that time. I have reviewed over the risk and benefits of repeat SI injection and she would like to proceed forward with this plan of care. Patient has continued conservative treatment including oral medications, heat and ice, topicals, at home stretching exercise for longer than 12 weeks and in between injections. Patient will be scheduled for her next diagnostic left SI injection under fluoroscopy. Patient has been instructed to contact the clinic with any concerns before the next appointment. Dr. Isaac has reviewed this note and agrees with this plan of care. This note was dictated using voice recognition software and make contain errors or omissions. All injections are used with Lidocaine, Bupivacaine and Depo Medrol. Occasionally urine drug screen is needed to verify patient's compliance with our office pain contract. This is ordered based off specific treatments related to chronic pain with the potential to abuse certain medications.
== END 2024-11-23 23:59 | disposition home or self-care (01) ==
LOC: SC.PAIN 10:14
PROVIDERS: PCP Psychiatry & Neurology Sleep Medicine; Visit Provider Nurse Practitioner Family
DX: M46.1 Sacroiliitis, not elsewhere classified (principal); M51.369 Other intervertebral disc degeneration, lumbar region without mention of lumbar back pain or lower extremity pain; Z73.89 Other problems related to life management difficulty
CPT/HCPCS: 99212; G0463

== ENCOUNTER 2024-12-12 10:23 | Day surgery (SDC) | payer MEDICARE, SELFPAY ==
[2024-12-12 10:40] VITALS: BP 113/53; PULSE 70; RESP 18; O2SAT 96; BMI 27.6
[2024-12-12 11:05] VITALS: BP 123/61; PULSE 70; RESP 18; O2SAT 98
--- NOTE | 2024-12-12 11:10 | EXP.PAIN.PRO ---
Procedure Date: 12/12/24 Time: 11:00 Anesthesiologist:: Brandyn Ortiz CRNA Complications:: None Pre-procedure Diagnosis:: Left sacroiliitis Post-procedure Diagnosis:: Same Indications for Procedure:: Patient is a pleasant 74-year-old female comes to clinic today for left sacroiliac joint injection of cortisone and local anesthetic. Patient describes low lumbar back pain off the midline to the left. Left posterior hip pain. Difficulty transitioning from sitting to standing. She rates her pain 7/10. Procedure Details:: Procedure: Left sacroiliac injection under fluoroscopy Informed consent was obtained and the risk and benefits of the procedure were explained to the patient.~ The patient was taken to the procedure room and noninvasive monitors were placed including noninvasive blood pressure cuff and pulse oximeter.~ The patient was placed prone on the procedure table.~ The~ left hip was cleansed using Betadine as a cleansing solution.~ C-arm fluorosocpy was used to view the left SI joint.~ The skin and subcutaneous tissues were anesthetized using Lidocaine 1.5% and a 25-gauge needle.~ After this, a 22-gauge spinal needle was inserted under fluoroscopic guidance into the inferior aspect of the left SI joint.~ Omnipaque dye was injected and a good spread was seen throughout the joint.~ After this, approximately 5 mL of bupivacaine 0.25% and Depo-Medrol 40 mg was incrementally injected into the sacroiliac joint.~ The patient tolerated the procedure well with no complications.~ The patient was observed in the Pain Clinic for a period of 30-45 minutes, then discharged home neurologically intact.~ Plan and Disposition:: Patient was discharged without incident
[2024-12-12] MEDS: BUPIVACAINE 0.25% 10ML INJ 25 MG IJ (11:14)
[2024-12-12] MEDS: LIDOCAINE 1% 5ML PF VIAL 5 ML (11:14)
[2024-12-12] MEDS: methylPREDNISolone ACETATE 80MG/ML VIAL 80 MG (11:14)
[2024-12-12 11:16] VITALS: BP 120/61; PULSE 70; RESP 18; O2SAT 97
[2024-12-12 11:22] VITALS: BP 120/61; PULSE 70; RESP 18; O2SAT 97
== END 2024-12-12 11:05 | disposition home or self-care (01) ==
PROVIDERS: PCP Psychiatry & Neurology Sleep Medicine; Visit Provider Nurse Anesthetist, Certified Registered
DX: M46.1 Sacroiliitis, not elsewhere classified (principal)
CPT/HCPCS: 27096; G0260; J1010

== ENCOUNTER 2024-12-27 09:06 | Outpatient (POV) | payer MEDICARE, SELFPAY ==
--- NOTE | 2024-12-27 09:26 | EXP.PAIN.SOA ---
[facility] Disclaimer: The information contained in this section may have been updated after the patient was seen, as this information can be updated by other users. Medical History Fibrosis of lung Asthma Fall Dyspnea Chest pain Pleurisy History of pacemaker Right middle lobe pneumonia Pneumonia Pleuritis Pneumonia Chest wall pain Bone spur Small spur projects distally at the posterior aspect of the navicular Calcaneal spur There is a small calcaneal spur and calcaneal enthesophyte at the Achilles insertion. Osteoarthritis Minimal osteoarthritic changes are present involving the 1st metatarsophalangeal joint. Right ankle instability Right ankle pain Edema of soft tissue of right ankle region Achilles tendinitis Sprain of right ankle Normal coronary arteries OCT 2020 Grade I diastolic dysfunction Abnormal cardiovascular stress test Abnormal EKG Atypical angina Yeast infection Facial pain Sinusitis, acute Bronchitis Exertional dyspnea Symptomatic sinus bradycardia Surgical History History of left knee replacement Family History Other Cancer Diabetes Hypertension Social History (Updated 12/12/24 @ 10:59 by Adele Canseco RN) Smoking Status: Never smoker second hand exposure: No alcohol intake: never substance use type: denies use current occupational status: retired Travel in the last 8 weeks: None household members: spouse housing: house current occupational exposures/hazards: No caffeine: Yes PM Subjective & Objective Subjective Subjective:: Patient is a pleasant 74-year-old female who presents today for follow-up of left SI injection on 12/12/2024. She rates her pain today a 5 out of 10. She denies any new injury or trauma. She does state that she had 80% relief following this injection however felt like it really just lasted a good 4 days. Patient states she is back to having more severe pain along her low back and her hip. Patient states that she cannot walk very long without having to stop and take multiple breaks. Patient states the pain yesterday was unbearable. Patient states that she cannot do activities of daily living such as cooking and cleaning.Patient did previously have prior to this a left transforaminal of L4-L5 back in October that did provide 50 to 75% relief. Patient has continued conservative treatments between injections. Patient has been prescribed compounded cream from our office and states that she has not been using it however we will start again her Sánchez has been reviewed and is appropriate. Review of Systems: General: No recent weight changes, no fever, no sleep disturbances Respiratory: No cough, no shortness of air, no recurring pulmonary infections Cardiovascular/peripheral vascular: No chest pain, no palpitations, no edema, no shortness of breath Gastrointestinal: No new onset incontinence, normal bowel movements reported Genitourinary: No new onset incontinence Musculoskeletal: Low back pain, left hip pain Psychiatric: [Normal mood/affect] Neurological: [Denies weakness in extremities], [denies balance issues] Pain at rest (0-10 scale): 5 Objective Objective:: Physical Exam: General: Alert and oriented x3, no acute distress, pleasant and cooperative Lungs: Respirations even and unlabored, symmetrical chest expansion Eyes: PERRL Musculoskeletal: Flexion and extension of lumbar [spine] somewhat guarded secondary to pain, [antalgic gait noted] extreme point tenderness along left superior cluneal nerve and left greater trochanteric bursa Neurological: Speech clear, no gross sensory deficit Has patient had previous pain injection?: Yes Percent improvement in pain since last injection: 80% Conservative treatment options previously tried: Home exercise plan Length of treatment: Longer than 12 weeks Meds Home Medications and Allergies Home Medications ?Medication ?Instructions ?Recorded ?Confirmed ?Type aspirin 81 mg tablet,delayed 81 mg PO DAILY CAD 12/27/17 12/27/24 History release (Adult Low Dose Aspirin) sitagliptin phosphate 50 1 tab PO BID Diabetes 08/11/21 12/27/24 History mg-metformin 500 mg tablet (Janumet) budesonide-formoterol HFA 80 1 inh inhalation QID PRN shortness 10/05/23 12/27/24 Rx mcg-4.5 mcg/actuation aerosol of breath or wheezing 90 days inhaler (Symbicort) #10.2 grams glimepiride 2 mg tablet 2 mg PO DAILY 04/12/24 12/27/24 History rosuvastatin 40 mg tablet 40 mg PO DAILY 04/12/24 12/27/24 History triamterene 37.5 0.5 tab PO DAILY High blood 06/14/24 12/27/24 Rx mg-hydrochlorothiazide 25 mg tablet pressure 90 days #45 tabs metoprolol succinate 25 mg See Rx Instructions .Route 12/12/24 02/05/25 Rx tablet,extended release 24 hr .COMPLEX #90 tabs New Prescriptions to Start Prescriptions: Allergies Allergy/AdvReac Type Severity Reaction Status Date / Time No Known Allergies Allergy Verified 11/02/24 08:53 Assessment and Plan *Assessment and plan (1) Nerve entrapment: Status: Acute Category: Medical Code(s): G58.9 - Mononeuropathy, unspecified (2) Greater trochanteric bursitis of left hip: Status: Acute Category: Medical Code(s): M70.62 - Trochanteric bursitis, left hip Plan Patient is experiencing significant pain in her low back and left hip. Patient did have limited range of motion of her lumbar spine along with extreme point tenderness along her upper iliac crest on the left side as well as extreme point tenderness on her left greater trochanteric bursa. I did discuss with the patient that she may benefit from a left superior cluneal nerve block in the left bursa. Risk and benefits were discussed with patient and she would like to proceed forward with this plan of care. Patient has continued conservative therapy including oral medication, heat and ice, topicals, at home stretching exercise for longer than 12 weeks in between injections. Patient's pain is all related to a fall that she suffered in August 2024. We will submit to insurance for a left superior cluneal nerve block and left bursa injection under fluoroscopy. Patient has been instructed to contact the clinic with any concerns before the next appointment. Dr. Isaac has reviewed this note and agrees with this plan of care. This note was dictated using voice recognition software and make contain errors or omissions. All injections are used with Lidocaine, Bupivacaine and Depo Medrol. Occasionally urine drug screen is needed to verify patient's compliance with our office pain contract. This is ordered based off specific treatments related to chronic pain with the potential to abuse certain medications.
[2024-12-27 09:28] VITALS: BP 124/39; PULSE 76; RESP 18; O2SAT 97; BMI 27.6
== END 2024-12-27 23:59 | disposition home or self-care (01) ==
LOC: SC.PAIN 09:09
PROVIDERS: PCP Family Medicine; Visit Provider Nurse Practitioner Family
DX: G58.9 Mononeuropathy, unspecified (principal); M70.62 Trochanteric bursitis, left hip; Z73.89 Other problems related to life management difficulty
CPT/HCPCS: 99202; G0463

== ENCOUNTER 2025-01-16 10:28 | Day surgery (SDC) | payer MEDICARE, SELFPAY ==
[2025-01-16 10:40] VITALS: BP 111/55; PULSE 71; RESP 16; TEMP 36.8; O2SAT 97; BMI 27.4
--- NOTE | 2025-01-16 11:12 | P.PCN_ITS ---
Procedure Date: 01/16/25 Time: 11:00 Anesthesiologist:: Brandyn Ortiz CRNA Complications:: None Pre-procedure Diagnosis:: Left posterior hip pain. Left sacroiliitis. Left greater trochanteric bursitis. Post-procedure Diagnosis:: Same. Indications for Procedure:: Patient is a very pleasant 74-year-old female who comes our clinic today for left trochanteric bursa injection as well as left superior cluneal nerve block. Patient describes left posterior hip pain as constant, dull, aching. She rates the pain 9/10. Patient also reporting left lateral hip pain with extreme point tenderness over the left trochanteric bursa. She rates this pain 9/10. Procedure Details:: Procedure:Left trochanteric bursa injection under fluoroscopy We then moved to the left trochanteric bursa.~ C-arm fluoroscopy was used to view the left greater trochanter.~ The skin and subcutaneous tissues overlying the left greater trochanter were anesthetized using lidocaine, 1.5% and a 25- gauge needle.~ After this, a 22-gauge spinal needle was inserted and advanced until it contacted the left greater trochanter.~ Dye was injected and good spread was seen throughout the left trochanteric bursa. After this, approximately 5 mL of bupivacaine, 0.25% and Depo-Medrol, 40 mg was incrementally injected into the left trochanteric bursa.~ The patient tolerated the procedure well with no complications. The left cluneal nerve was blocked with a 22-gauge 3 and half inch needle with 4 cc of 1% lidocaine and 40 mg of Depo-Medrol. Plan and Disposition:: Patient was discharged without incident.
[2025-01-16 11:15] VITALS: BP 121/69; PULSE 70; RESP 16; TEMP 36.2; O2SAT 97
[2025-01-16] MEDS: methylPREDNISolone ACETATE 80MG/ML VIAL 80 MG (12:12)
[2025-01-16 12:13] VITALS: BP 107/63; PULSE 70; RESP 18; O2SAT 99
[2025-01-16] MEDS: LIDOCAINE 1% 5ML PF VIAL 5 ML (12:13)
[2025-01-16] MEDS: BUPIVACAINE 0.25% 10ML INJ 25 MG IJ (12:13)
[2025-01-16 12:14] VITALS: BP 107/63; PULSE 70; RESP 18; O2SAT 99
== END 2025-01-16 11:15 | disposition home or self-care (01) ==
PROVIDERS: PCP Family Medicine; Visit Provider Nurse Anesthetist, Certified Registered
DX: M70.62 Trochanteric bursitis, left hip (principal); M46.1 Sacroiliitis, not elsewhere classified; M25.552 Pain in left hip
CPT/HCPCS: 20610; 64450; 77002; J1010

== ENCOUNTER 2025-04-18 14:00 | Outpatient (CLI) | payer MEDICARE, SELFPAY ==
--- OUTSIDE RECORDS SUMMARY | 2025-04-18 14:02 | XMS_ITS ---
Author Organization Unknown TREATMENT PLAN [facility] Start Date Provider Encounter for Check-up [id number] [facility]
--- NOTE | 2025-04-18 14:05 | XR_ITS ---
FINAL REPORT CLINICAL HISTORY: fall x 1.5 weeks ago COMPARISON: None FINDINGS: THORACIC SPINE Three views of the thoracic spine were obtained. There is mild anterior osteophyte formation in the mid thoracic spine. The vertebrae are normal in height. There is no malalignment. IMPRESSION: No acute process. LUMBOSACRAL SPINE 3 views of the lumbosacral spine were obtained. There is mild anterior osteophyte formation at L1-2 and L2-3. The vertebrae are normal in height. There is no malalignment. Moderate facet sclerosis is noted in the lower lumbar spine. IMPRESSION: No acute process. Reviewed, Interpreted and Dictated by Gunnar Brown MD Transcribed by Mary Jane Whyte Authenticated and . [facility]
--- NOTE | 2025-04-18 14:05 | XR_ITS ---
FINAL REPORT CLINICAL HISTORY: left elbow pain fall 1.5 weeks ago COMPARISON: None FINDINGS: LEFT ELBOW 3 views were obtained. There is no acute fracture or dislocation. There is a well-corticated ossific density adjacent to the lateral epicondyle measuring 6 mm, probably sequela from old trauma. There is no joint effusion. The joint spaces are intact. There is no soft tissue abnormality. IMPRESSION: No acute bony abnormality. Reviewed, Interpreted and Dictated by Gunnar Brown MD Transcribed by Mary Jane Whyte Authenticated and [facility]
--- NOTE | 2025-04-18 14:05 | XR_ITS ---
FINAL REPORT CLINICAL HISTORY: fall x 1.5 weeks ago COMPARISON: None FINDINGS: 2 views of the left clavicle were obtained. There is no acute fracture. There are mild hypertrophic changes of the glenohumeral joint consistent with osteoarthritis. There is no soft tissue abnormality. IMPRESSION: No acute process. Reviewed, Interpreted and Dictated by Gunnar Brown MD Transcribed by Mary Jane Whyte Authenticated and '[facility]
--- NOTE | 2025-04-18 14:05 | XR_ITS ---
FINAL REPORT CLINICAL HISTORY: PAIN fall 1.5 weeks ago COMPARISON: Chest x-ray 05/11/2023 FINDINGS: A single view of the chest with 3 views of the left ribs were obtained. There is no acute cardiopulmonary process. No pneumothorax is identified. A left-sided pacer is present. No displaced rib fracture identified. IMPRESSION: No acute process. Reviewed, Interpreted and Dictated by Gunnar Brown MD Transcribed by Mary Jane Whyte Authenticated and [facility]
== END 2025-04-18 23:59 | disposition home or self-care (01) ==
LOC: RAD 14:01
PROVIDERS: PCP Family Medicine; Visit Provider Physician Assistant
DX: M47.816 Spondylosis without myelopathy or radiculopathy, lumbar region (principal); M25.78 Osteophyte, vertebrae; M25.522 Pain in left elbow; M89.8X1 Other specified disorders of bone, shoulder; R07.81 Pleurodynia
CPT/HCPCS: 71101; 72084; 73000; 73080

== ENCOUNTER 2025-04-20 13:38 | Outpatient (CLI) | payer MEDICARE, SELFPAY ==
--- NOTE | 2025-04-20 13:41 | MM_ITS ---
PROCEDURE INFORMATION: Exam: MG Bilateral Screening 3D Mammography Exam date and time: 04/20/2025 1:50 PM Age: 74 years old Clinical indication: Screening examination TECHNIQUE: Imaging protocol: Bilateral Screening tomosynthesis and 2D mammography including computer-aided detection (CAD) when performed. COMPARISON: 1. MG MM DIG SCREENING MAMM BI W/CAD 04/10/2024 1:53 PM 2. MG MM DIG SCREENING MAMM BI W/CAD 03/09/2023 8:10 AM FINDINGS: MAMMOGRAPHY: Breast composition: There are scattered areas of fibroglandular density. Mass: None. Architectural distortion: None. Calcifications: No suspicious calcifications. Asymmetric density: None. Skin thickening: None. Axillary adenopathy: None. IMPRESSION: No mammographic evidence of malignancy. Annual screening is recommended unless otherwise clinically indicated. ASSESSMENT: BI-RADS Category 1: Negative.
== END 2025-04-20 23:59 | disposition home or self-care (01) ==
LOC: RAD 13:39
PROVIDERS: PCP Family Medicine; Visit Provider Physician Assistant
DX: Z12.31 Encounter for screening mammogram for malignant neoplasm of breast (principal); R92.323 Mammographic fibroglandular density, bilateral breasts
CPT/HCPCS: 77063; 77067

== ENCOUNTER 2025-05-11 07:15 | Outpatient (CLI) | payer MEDICARE, SELFPAY ==
--- OUTSIDE RECORDS SUMMARY | 2025-01-30 06:15 | XMS_ITS ---
Author Organization [facility] Address [address] [facility] [address] [place] [id number] Care Team Providers Care Ironmolder Name Role Phone Faviola Tellez Primary Care Provider Fredi Patrizia Unavailable [phone] Allergies No Known Allergies Results Component Value Reference Range Notes Urinalysis - Inhouse Reviewed date:01/30/2025 12:25:47 PM Interpretation: Performing Lab: Notes/Report: Color/Clarity justine Leuk neg Nitrite neg Urobili 16 Protein 2+ pH 5.0 Blood neg Sp. Gr. >=1.030 Ketone neg Bili 3+ Gluc trace Influenza Screen (in house) Reviewed date:01/30/2025 12:26:17 PM Interpretation:Negative Performing Lab: Notes/Report: Negative results neg CBC Fingerstick (in house) Reviewed date:01/30/2025 12:26:35 PM Interpretation: Performing Lab: Notes/Report: wbc 10.1 3.5 - 10 lym 25.0 15 - 50 mid 5.8 2 - 15 gran 69.2 35 - 80 rbc 4.92 3.5 - 5.5 hgb 13.1 11.5 - 16.5 hct 39.2 35 - 55 mcv 79.2 75 - 100 mch 26.7 25 - 35 mchc 33.5 31 - 38 plat 155 100 - 400 P-Comprehensive Metabolic Pa jeovanny (CMP) Reviewed date:01/31/2025 04:30:31 PM Interpretation:gluc 144, Cr 1.33, gfr 42, alk phos 126 Performing Lab: Notes/Report: Test performed by [facility] [address] [place] [address] , [address], [place] [address] Genaro Moran MD, [employer] CLIA: [id number] Sodium 142 135-145 mmol/L Potassium 4.4 3.5-5.3 mmol/L Chloride 101 97-108 mmol/L CO2 25 22-32 mmol/L Glucose 144 65-99 mg/dL BUN 19 8-23 mg/dL Creatinine 1.33 0.50-1.00 mg/dL Calcium 9.6 8.6-10.4 mg/dL eGFR by Creatinine 42 >59 mL/min/1.73m2 Protein 7.4 6.0-8.3 g/dL Albumin 4.5 3.5-5.3 g/dL Alkaline Phosphatase 126 35-121 IU/L ALT (SGPT) 22 <5-47 IU/L AST (SGOT) 27 <5-40 IU/L Bilirubin, Total 0.7 <0.2-1.2 mg/dL A/G Ratio 1.6 1.1-2.5 P-COVID 19 Reviewed date:01/31/2025 04:29:54 PM Interpretation:Negative Performing Lab: Notes/Report: Test performed by [facility] [address] [place] [address] , [address], [place] [address] Genaro Moran MD, [employer] CLIA: [id number] SARS-CoV-2, RNA: Not Detected Not Detected This test is performed by an FDA-approved real-time PCR (RT-PCR) in vitro diagnostic test. It is intended for medical purposes only and should not be regarded as investigational or for research. A negative result does not exclude the possibility of infection, since very low levels of infection and sampling variability may cause a false negative result. Results of this test should be interpreted in conjunction with clinical and laboratory findings. Testing is restricted to laboratories that are certified under the Clinical Laboratory Improvement Amendments of 1988 to perform high complexity tests. This laboratory is certified under CLIA to perform high complexity testing. Test performed by [facility], [facility] d/[facility]/a [email or web address] , [address] , [place] [address], Nani Grewal DO, [employer], CLIA# [id number] First Test? Yes Employed in Healthcare? No Symptomatic as defined by CDC? Yes Date of Symptom Onset? 01/21/2025 Hospitalized? No ICU? No Resident in Congregate Care Setting? No ? No REASON FOR VISIT ER f/u; still coughing Medications Medication SIG (Take, Route, Frequency, Duration) Notes Start Date End Date Status Janumet 50-500 MG 1 tab(s) orally once daily Active Rosuvastatin Calcium 40 MG 1 tablet Oral ly Once a day for 90 days 04/03/2024 Active Ondansetron 4 MG 1 tablet on the tong ue and allow to dissolve Orally q6h prn 01/30/2025 Active Albuterol Sulfate HFA 108 (90 Base) MCG/ACT 1 puff as needed Inhalation every 4 hrs, prn 11/18/2023 Active Glimepiride 2 MG 1 tablet with breakf ast or the first main meal of the day Orally Once a day for 30 days Active CoQ10 200 MG as directed Orally Active Triamterene-HCTZ 37.5-25 MG 1/2 tablet i n the morning Orally Once a day Active Aspir-Low 81 MG 1 tab(s) orally once a day for 30 day(s) Active Metoprolol Succinate ER 25 MG TAKE 1 TABLET BY MOUTH ONCE DAILY for 90 Active Symbicort 80-4.5 MCG/ACT 1 puffs Inhalation qid Active Vital Signs Blood pressure systolic 110 mm Hg 01/31/20 25 Blood pressure diastolic 62 mm Hg 025 Heart Rate 70 /min 01/30/2025 Height 64 in 01/30/2025 Weight 159 lbs 01/30/2025 BMI 27.29 kg/m2 01/30/2025 Encounters Encounter Location Date Provider Diagnosis [facility] [address] [id number] 01/30/2025 Patrizia Rai Type 2 diabetes karl itus without complications E11.9 ; Dyslipidemia E78.5 ; Primary hypertension I10 ; Gastroenteritis K52.9 ; URI (upper respiratory infection) J06.9 and Back pain M54.9 Assessments Encounter Date Diagnosis (ICD Code) Assessment Notes Treatment Notes Treatment Clinical Notes Section Notes 01/30/2025 Type 2 diabetes mellitus without complications (ICD-10 - E11.9) will hol glimepiride whie she is not eating 01/30/2025 Dyslipidemia (ICD-10 - E78.5) 01/30/2025 Primary hypertension (ICD-10 - I10) 01/30/2025 Gastroenteritis (ICD-10 - K52.9) will hold trimamterene /HCTZ while she is not drinking; stressed need to increase fluid intake; she demonstrated understanding 01/30/2025 URI (upper respiratory infection) (ICD-10 - J06.9) fluids, rest, supportive measures for fever/symptom relief 01/30/2025 Back pain (ICD-10 - M54.9) follows with Pain management; UA is neg fot UTI Plan Of Treatment Medication Medication Name Sig Start Date Stop Date Notes Janumet 50-500 MG 1 tab(s) orally once daily Ondansetron 4 MG 1 tablet on the tong ue and allow to dissolve Orally q6h prn 01/30/2025 Treatment Notes Assessment Notes Type 2 diabetes mellitus wit hout complications will hol glimepiride whie she is not eating Gastroenteritis will hold trimamtere ne /HCTZ while she is not drinking; stressed need to increase fluid intake; she demonstrated understanding URI (upper respiratory infection) fluids , rest, supportive measures for fever/symptom relief Back pain follows with Pain ma nagement; UA is neg fot UTI Next Appt Details Follow Up: 2 days, Reason: Provider Name:Suzie fuentes, 05/16/2025 09:15:00 AM, [address], [address], [place], [place], [id number], Progress Notes * JOSHUA SIMONSOB: 9 (74 yo F)Acc No.[id number]:01/30/2025 Progress Notes Patient: DIPESH SAUCEDA Provider: RAVINDER Kennedy :1950 A ge:74 Y S ex:Female Date:01/30/2025 Address:[address] [place] [address] [phone] Pcp:Faviola Tellez Subjective: * Chief Complaints: * 1 . ER f/u; still coughing. * HPI: E NT/respiratory: 74 year old female presents with c/o cough P t presents today for a follow up from [facility]. Pt was seen on 01/21/25 with c/o cough and body aches. Pt had been caring for her grandson who had tested positive for the flu. Pt however tested negative but presents today with continued c/o cough. Pt sts that she has some nausea and diarrhea as well. Pt sts that she is still hurting everywhere. Pt sts that she is coughing up white sputum. Pt sts that the Benzonatate she was given by [facility] has made her sick. c/o Fever. c/o Short of Breath w ith exertion. c/o dizziness. c/o body aches. Denies : sore throat. D enies : headache. D enies : chest congestion. D enies : smoking. K nee/Bella: c/o Fall P t sts that she fell yesterday as well and hurt her lower left leg. G astroenterology: c/o Nausea. c/o Diarrhea. Denies : Abdominal Pain. D enies : Heartburn. D enies : Vomiting. * ROS: D ERMATOLOGY: no R kash. [...] Diagno stic Procedure: B ronchitis , Pneumonia/ [facility] 02/02/2008, Chest Pains- [facility] 12/27-05/2009, Heart Cath- [facility] 01/15/2009, Acquired Pneumonia- [facility] 09/23/2010, Pneumonia- [facility] 09/25/2013, SOA, back and chest pain- [facility] 08/2017, Sinusitis- [facility] 04/23/2019, Rash- [facility] 07/22/2019, Blood Sugar 59- [facility] 02/08/2021, Cough - [facility] 01/21/2025. * Family History: F ather: 50 yrs, [place]. M other: alive 82 yrs, [employer]. P [...] Inhalation every 4 hrs, prn , Taking Janumet 50-500 MG Tablet 1 tab(s) orally once daily , Taking Glimepiride 2 MG Tablet 1 tablet with breakfast or the first main meal of the day Orally Once a day , Medication List reviewed and reconciled with the patient * Allergies: N .K.D.A. Objective: * Vitals: W t:159, Temp:97.7, BP:110/62, HR:70, O2 Sat:98% on RA, Nurse:OSMEL, Ht: 64, BMI:27.29. * Examination: G eneral Examination: General Appearance: NAD, alert, pleasant; appears not to feel well. HEENT: sclera and conjunctiva clear, PERRLA, TM's normal, translucent. Oral cavity: mucosa moist and WNL, no erythema. Neck: supple, no lymphadenopathy. Heart: RRR. Lungs: CTAB A&P; decreased BS posteriorly. Abdomen: bowel sounds present, soft; tender in all upper quads. Neurologic Exam: alert and oriented. Extremities: n o leg edema; left anterior leg with soft tissue ecchymosis oblong about 10 cm; slightly tender. Assessment: * Assessment: 1. T ype 2 diabetes mellitus without complications - E11.9 (Primary) 2 . D yslipidemia - E78.5 3 . P rimary hypertension - I10 4 . G astroenteritis - K52.9 5 . U RI (upper respiratory infection) - J06.9 ?6. B ack pain - M54.9 Plan: * Treatment: 2. G astroenteritis Start Ondansetron Tablet Disintegrating, 4 MG, 1 tablet on the tongue and allow to dissolve, Orally, q6h prn, 30. L AB: P-Comprehensive Metabolic Panel (CMP) (Collection Date & Time - 01/30/2025 10:22 AM) g man 144, Cr 1.33, gfr 42, alk phos 126 Value Reference Range A /G Ratio 1.6 1.1-2.5 - * A lbumin 4.5 3.5-5.3 - g/dL * A lkaline Phosphatase 126 H 35-121 - IU/L * A LT (SGPT) 22 <5-47 - IU/L * A ST (SGOT) 27 <5-40 - IU/L * B ilirubin, Total 0.7 <0.2-1.2 - mg/dL * B UN 19 8-23 - mg/dL * C alcium 9.6 8.6-10.4 - mg/dL * C hloride 101 97-108 - mmol/L * C O2 25 22-32 - mmol/L * C reatinine 1.33 H 0.50-1.00 - mg/dL * G lucose 144 H 65-99 - mg/dL * P otassium 4.4 3.5-5.3 - mmol/L * S odium 142 135-145 - mmol/L * P rotein 7.4 6.0-8.3 - g/dL * e GFR by Creatinine 42 L >59 - mL/min/1.73m2 * Patrizia Rai 01/31/2025 4:30:32 PM > ?LAB: Urinalysis - Inhouse (Collection Date & Time - 01/30/2025)* Value Reference Range C olor/Clarity justine * L euk neg * N itrite neg * U robili 16 * P rotein 2+ * p H 5.0 * B lood neg * S p. Gr. >=1.030 * K etone neg * B mary 3+ * G man trace * Maribeth Paulson 01/30/2025 12:2 5:26 PM > reviewed w/ pt in office ?LAB: CBC Fingerstick (in house) (Collection Date & Time - 01/30/2025)* Value Reference Range w bc 10.1 3.5 - 10 * l ym 25.0 15 - 50 * m id 5.8 2 - 15 * g ran 69.2 35 - 80 * r bc 4.92 3.5 - 5.5 * h gb 13.1 11.5 - 16.5 * h ct 39.2 35 - 55 * m cv 79.2 75 - 100 * m ch 26.7 25 - 35 * m chc 33.5 31 - 38 * p lat 155 100 - 400 * Maribeth Paulson 01/30/2025 10:4 2:09 AM > results reviwed w/ pt in office Notes: will hold trimamterene /HCTZ while she is not drinking; stressed need to increase fluid intake; she demonstrated understanding??3.?URI (upper respiratory infection)?LAB: P-COVID 19 (Collection Date & Time - 01/30/2025 10:22 AM)?Negative* Value Reference Range F irst Test? Yes - * E mployed in Healthcare? No - * H ospitalized? No - * I CU? No - * P regnant? No - * R esident in Congregate Care Setting? No - * S ARS-CoV-2, RNA: Not Detected Not Detected - * S ymptomatic as defined by CDC? Yes - * D ate of Symptom Onset? 01/21/2025 - * Patrizia Rai 01/31/2025 4:27:43 PM > ?LAB: Influenza Screen (in house) (Collection Date & Time - 01/30/2025)? Negative* Value Reference Range r esults neg * LoreneMaribeth 01/30/2025 12:2 6:09 PM > reviewed w/ pt in office Notes: fluids, rest, supportive measures for fever/symptom relief??4.?Back pain?LAB: Urinalysis - Inhouse (Collection Date & Time - 01/30/2025)* Value Reference Range C olor/Clarity justine * L euk neg * N itrite neg * U robili 16 * P rotein 2+ * p H 5.0 * B lood neg * S p. Gr. >=1.030 * K etone neg * B mary 3+ * G man trace * LoreneMaribeth 01/30/2025 12:2 5:26 PM > reviewed w/ pt in office Notes: follows with Pain management; UA is neg fot UTI?? * Procedure Codes: G 2211 Complex e/[place], [address] CAPILLARY BLOOD DRAW, [address] [place], [address] CBC WITH AUTO DIFF, 80966 Flu Test- Nasal Swab, Modifiers: QW , [address] Urinalysis, no micro, G8752 MOST RECENT SYSTOLIC BP < 140MM HG, G8754 MOST RECENT DIASTOLIC BP < 90MM HG * Follow Up: 2 days * Billing Information: * Visit Code: 10400 Office Visit, Est Pt., Level 4. * Procedure Codes: G2211 Complex e/[place]. [address] CAPILLARY BLOOD [place]RAW. [address] [place]. [address] CBC WITH AUTO DIFF. 05768 Flu Test- Nasal Swab. Modifiers: QW 49096 Urinalysis, no micro. G8752 MOST RECENT SYSTOLIC BP < 140MM HG. G8754 MOST RECENT DIASTOLIC BP < 90MM HG. * Electronic signature of Destiney Rai APRN on 05/11/2025 at 07:18 AM EDT Sign off status: Pending * Provider: RAVINDER Kennedy Date: 0 01/30/2025 Generated for Nicole solomon/Carmelita/eTransmitting on: 0 05/11/2025 07:18 AM EDT History and Physical Notes * HPI (History of Present Illness) Category Sub-Category Detail Notes Category Not es ENT/respiratory sore throat Short of Breath with exertion cough Pt presents today fo r a follow up from [facility]. Pt was seen on 01/21/25 with c/o cough and body aches. Pt had been caring for her grandson who had tested positive for the flu. Pt however tested negative but presents today with continued c/o cough. Pt sts that she has some nausea and diarrhea as well. Pt sts that she is still hurting everywhere. Pt sts that she is coughing up white sputum. Pt sts that the Benzonatate she was given by [facility] has made her sick Fever headache chest congestion smoking dizziness body aches Knee/Bella Fall Pt sts that she fell yesterday as well and hurt her lower left leg Gastroenterology Vomiting Abdominal Pain Diarrhea Nausea Heartburn Examination Category Sub-Category Detail Notes Category Not es General Examination HEENT: sclera and c onjunctiva clear, PERRLA, TM's normal, translucent Heart: RRR Lungs: CTAB A&P; decreased BS posteriorly Abdomen: bowel sounds present , soft; tender in all upper quads Extremities: no leg edema; left a nterior leg with soft tissue ecchymosis oblong about 10 cm; slightly tender General Appearance: NAD, alert, pleasant ; appears not to feel well Neurologic Exam: alert and oriented Neck: supple, no lymphaden opathy Oral cavity: mucosa moist and WNL , no erythema
--- OUTSIDE RECORDS SUMMARY | 2025-02-01 06:30 | XMS_ITS ---
Author Organization [facility] Address [address] [facility] [address] [id number] Care Team Providers Care Superintendent Factory Name Role Phone Faviola Tellez Primary Care Provider Suzie Moss Unavailable [phone] Allergies No Known Allergies Results Component Value Reference Range Notes Influenza Screen (in house) Reviewed date:02/01/2025 11:49:55 AM Interpretation: Performing Lab: Notes/Report: results Neg CBC Fingerstick (in house) Reviewed date:02/01/2025 11:51:53 AM Interpretation: Performing Lab: Notes/Report: wbc 7.0 3.5 - 10 lym 29.4% 15 - 50 mid 7.5% 2 - 15 gran 63.1% 35 - 80 rbc 4.74 3.5 - 5.5 hgb 12.4 11.5 - 16.5 hct 37.3 35 - 55 mcv 78.8 75 - 100 mch 26.3 25 - 35 mchc 33.4 31 - 38 plat 152 100 - 400 TEN-Upper Respiratory PCR Reviewed date:02/05/2025 01:20:10 PM Interpretation:Morazella catarrhalis Performing Lab: Notes/Report: Morazella catarrhalis Covid test (in house) Reviewed date:02/01/2025 11:50:13 AM Interpretation: Performing Lab: Notes/Report: Result: Neg REASON FOR VISIT 2 day f/u Medications Medication SIG (Take, Route, Frequency, Duration) Notes Start Date End Date Status Albuterol Sulfate HFA 108 (90 Base) MCG/ACT 1 puff as needed Inhalation every 4 hrs, prn 02/01/2025 Active Blbrydjlc-Wtjjykvd-JU 30-2-10 MG/5ML 5-10 ml Orally 4 times a day, prn 02/01/2025 Active Rosuvastatin Calcium 40 MG 1 tablet Oral ly Once a day for 90 days 04/03/2024 Active Janumet 50-500 MG 1 tab(s) orally once daily Active Ondansetron 4 MG 1 tablet on the tong ue and allow to dissolve Orally q6h prn 01/30/2025 Active Symbicort 80-4.5 MCG/ACT 1 puffs Inhalation qid Active Albuterol Sulfate HFA 108 (90 Base) MCG/ACT 1 puff as needed Inhalation every 4 hrs, prn 11/18/2023 Active Aspir-Low 81 MG 1 tab(s) orally once a day for 30 day(s) Active Metoprolol Succinate ER 25 MG TAKE 1 TABLET BY MOUTH ONCE DAILY for 90 Active Glimepiride 2 MG 1 tablet with breakf ast or the first main meal of the day Orally Once a day for 30 days Active Triamterene-HCTZ 37.5-25 MG 1/2 tablet i n the morning Orally Once a day Active CoQ10 200 MG as directed Orally Active Vital Signs Blood pressure systolic 114 mm Hg 02/02/20 25 Blood pressure diastolic 66 mm Hg 025 Heart Rate 83 /min 02/01/2025 Height 64 in 02/01/2025 Weight 160 lbs 02/01/2025 BMI 27.46 kg/m2 02/01/2025 Encounters Encounter Location Date Provider Diagnosis [facility] [address] [id number] 02/01/2025 Suzie Moss Acute URI J06.9 and Bronchitis J40 Assessments Encounter Date Diagnosis (ICD Code) Assessment Notes Treatment Notes Treatment Clinical Notes Section Notes 02/01/2025 Acute URI (ICD-10 - J06.9) 02/01/2025 Bronchitis (ICD-10 - J40) Plan Of Treatment Medication Medication Name Sig Start Date Stop Date Notes Albuterol Sulfate HFA 108 (9 0 Base) MCG/ACT 1 puff as needed Inhalation every 4 hrs, prn 02/01/2025 Zbkmnkmgg-Rkoqiuqd-TG 30-2-1 0 MG/5ML 5-10 ml Orally 4 times a day, prn 02/01/2025 Next Appt Details Follow Up: via phone to repo rt test results, Reason: Provider Name:Suzie fuentes, 05/16/2025 09:15:00 AM, [address], [address], [place], [id number], Progress Notes * JOSHUA SIMONSOB: 9 (74 yo F)Acc No.[id number]:02/01/2025 Patient: DIPESH SAUCEDA Provider: JUANITA Ochoa :1950 A ge:74 Y S ex:Female Date:02/01/2025 Address:[facility] [place], [id number] Pcp:Faviola Tellez Subjective: * Chief Complaints: * 1 . 2 day f/u. * HPI: H PI: 74 year old female presents with c/o Here for follow up on:?dehydration. She has been sick for the past 2 weeks. She initially went to the [facility] after she was exposed to flu with her grandson and she got sick. Her flu test was negative and she was given tessalon which made her vomit. She finally started to feel better and then began feeling bad again on Wednesday. Flu and covid were again negative. Pt states she is feeling a little better . Pt complains of still feeling tired and weak. Pt has been able to drink Gatorade over the last 2 days to help rehydrate. * ROS: D ERMATOLOGY: no R kash. n o H flor. G ASTROENTEROLOGY: no N ausea. n o V omiting. U ROLOGY: no D ifficulty urinating. n [...] Diagno stic Procedure: B ronchitis , Pneumonia/ [facility] 02/02/2008, Chest Pains- [facility] 12/27-05/2009, Heart Cath- [facility] 01/15/2009, Acquired Pneumonia- [place] [facility] 09/23/2010, Pneumonia- [facility] ER 09/25/2013, SOA, back and chest pain- [facility] ER 08/2017, Sinusitis- [facility] ER 04/23/2019, Rash- [facility] 07/22/2019, Blood Sugar 59- [facility] ER 02/08/2021, Cough - [facility] Express Care 01/21/2025. * Family History: F ather: 50 yrs, [place]. M other: alive 82 yrs, [employer]. P [...] day Orally Once a day , Taking Ondansetron 4 MG Tablet Disintegrating 1 tablet on the tongue and allow to dissolve Orally q6h prn , Taking Janumet 50-500 MG Tablet 1 tab(s) orally once daily , Medication List reviewed and reconciled with the patient * Allergies: N .K.D.A. Objective: * Vitals: W t:160, Temp:97.9, BP:114/66, HR:83, O2 Sat:97% on RA, Nurse:wolf, Ht: 64, BMI:27.46. * P ast Orders: L ab:P-Comprehensive Metabolic Panel (CMP) (Order Date - 01/30/2025) (Collection Date & Time - 01/30/2025 10:22 AM) Result: gluc 144, Cr 1.33, gfr 42, alk phos 126 Value Reference Range A/G Ratio 1.6 1.1-2.5 - Albumin 4.5 3.5-5.3 - g/dL Alkaline Phosphatase 126 H 35-121 - IU/L ALT (SGPT) 22 <5-47 - IU/L AST (SGOT) 27 <5-40 - IU/L Bilirubin, Total 0.7 <0.2-1.2 - mg/dL BUN 19 8-23 - mg/dL Calcium 9.6 8.6-10.4 - mg/dL Chloride 101 97-108 - mmol/L CO2 25 22-32 - mmol/L Creatinine 1.33 H 0.50-1.00 - mg/dL Glucose 144 H 65-99 - mg/dL Potassium 4.4 3.5-5.3 - mmol/L Sodium 142 135-145 - mmol/L Protein 7.4 6.0-8.3 - g/dL eGFR by Creatinine 42 L >59 - mL/min/1.73m2 Clinical Info: Room 6 L ab:P-COVID 19 (Order Date - 01/30/2025) (Collection Date & Time - 01/30/2025 10:22 AM) Result: Negative Value Reference Range First Test? Yes - Employed in Healthcare? No - Hospitalized? No - ICU? No - ? No - Resident in Congregate Care Setting? No - SARS-CoV-2, RNA: Not Detected Not Detected - Symptomatic as defined by CDC? Yes - Date of Symptom Onset? 01/21/2025 - Clinical Info: Room 6 * Examination: G eneral Examination: General Appearance: NAD, does not appear to feel well.? HEENT: sclera and conjunctiva clear, PERRLA, TM's normal, translucent. Oral cavity: mucosa moist and WNL, no erythema. Neck: supple, no lymphadenopathy. Chest: n ormal shape and expansion. Heart: RRR. Lungs: f aint expiratory wheezes, no rales. Abdomen: b owel sounds present, soft and nontender. Neurologic Exam: alert and oriented. Skin: n ormal, no rash. Peripheral pulses: n ormal (2+) bilaterally. Extremities: no leg edema. Assessment: * Assessment: 1. A mary SYI - J06.9 (Primary) 2 . B yulisa - J40 Plan: * Treatment: Value Reference Range r esults Neg * Socorro Garrett 02/01/2025 11:49:3 9 AM > , Provider reviewed results while patient in office. ?LAB: CBC Fingerstick (in house) (Collection Date & Time - 02/01/2025)* Value Reference Range w bc 7.0 3.5 - 10 * l ym 29.4% 15 - 50 * m id 7.5% 2 - 15 * g ran 63.1% 35 - 80 * r bc 4.74 3.5 - 5.5 * h gb 12.4 11.5 - 16.5 * h ct 37.3 35 - 55 * m cv 78.8 75 - 100 * m ch 26.3 25 - 35 * m chc 33.4 31 - 38 * p lat 152 100 - 400 * Socorro Garrett 02/01/2025 11:51:4 6 AM > , Provider reviewed results while patient in office. ?LAB: TEN-Upper Respiratory PCR (Collection Date & Time - 02/01/2025)? Morazella catarrhalis* Suzie Moss 02/05/2025 1: 20:04 PM > see TE ?LAB: Covid test (in house) (Collection Date & Time - 02/01/2025)* Value Reference Range R esult: Neg * Socorro Garrett 02/01/2025 11:47:1 1 AM > , Provider reviewed results while patient in office. 2.?Bronchitis? Start Albuterol Sulfate HFA Aerosol Solution, 108 (90 Base) MCG/ACT, 1 puff as needed, Inhalation, every 4 hrs, prn, 1, Refills 1.?LAB: Influenza Screen (in house) (Collection Date & Time - 02/01/2025)* Value Reference Range r esults Neg * Socorro Garrett 02/01/2025 11:49:3 9 AM > , Provider reviewed results while patient in office. ?LAB: CBC Fingerstick (in house) (Collection Date & Time - 02/01/2025)* Value Reference Range w bc 7.0 3.5 - 10 * l ym 29.4% 15 - 50 * m id 7.5% 2 - 15 * g ran 63.1% 35 - 80 * r bc 4.74 3.5 - 5.5 * h gb 12.4 11.5 - 16.5 * h ct 37.3 35 - 55 * m cv 78.8 75 - 100 * m ch 26.3 25 - 35 * m chc 33.4 31 - 38 * p lat 152 100 - 400 * Socorro Garrett 02/01/2025 11:51:4 6 AM > , Provider reviewed results while patient in office. ?LAB: Covid test (in house) (Collection Date & Time - 02/01/2025)* Value Reference Range R esult: Neg * Socorro Garrett 02/01/2025 11:47:1 1 AM > , Provider reviewed results while patient in office. * Procedure Codes: G 2211 Complex e/[place], [address] [place], [address] CAPILLARY BLOOD DRAW, 25590 CBC WITH AUTO DIFF, 41522 Flu Test- Nasal Swab, Modifiers: QW , 40190 COVID TEST IN HOUSE, Modifiers: QW , G8752 MOST RECENT SYSTOLIC BP < 140MM HG, G8754 MOST RECENT DIASTOLIC BP < 90MM HG * Follow Up: v ia phone to report test results * Billing Information: * Visit Code: 72354 Office Visit, Est Pt., Level 3. * Procedure Codes: G2211 Complex e/[place]. [address] [place]. [address] CAPILLARY BLOOD DRAW. 96667 CBC WITH AUTO DIFF. 51318 Flu Test- Nasal Swab. Modifiers: QW 60274 COVID TEST IN HOUSE. Modifiers: QW G8752 MOST RECENT SYSTOLIC BP < 140MM HG. G8754 MOST RECENT DIASTOLIC BP < 90MM HG. * Electronic signature of JUANITA Antony on 05/11/2025 at 07:18 AM EDT Sign off status: Pending * Provider: JUANITA Ochoa Date: 0 02/01/2025 Generated for Nicole solomon/Carmelita/eTransmitting on: 0 05/11/2025 07:18 AM EDT History and Physical Notes * HPI (History of Present Illness) Category Sub-Category Detail Notes Category Not es HPI Here for follow up on: dehydrati on. She has been sick for the past 2 weeks. She initially went to the [facility] after she was exposed to flu with her grandson and she got sick. Her flu test was negative and she was given tessalon which made her vomit. She finally started to feel better and then began feeling bad again on Wednesday. Flu and covid were again negative. Pt states she is feeling a little better . Pt complains of still feeling tired and weak. Pt has been able to drink Gatorade over the last 2 days to help rehydrate Examination Category Sub-Category Detail Notes Category Not es General Examination HEENT: sclera and c onjunctiva clear, PERRLA, TM's normal, translucent Heart: RRR Lungs: faint expiratory whe ezes, no rales Abdomen: bowel sounds present , soft and nontender Extremities: no leg edema General Appearance: NAD, does not appear to feel well Skin: normal, no rash Neurologic Exam: alert and oriented Neck: supple, no lymphaden opathy Oral cavity: mucosa moist and WNL , no erythema Peripheral pulses: normal (2+) bilatera lly Chest: normal shape and exp ansion
--- OUTSIDE RECORDS SUMMARY | 2025-04-18 09:45 | XMS_ITS ---
Author Organization [facility] Address [address] [facility] [address] [place] [id number] Care Team Providers Care Trial Attorney Name Role Phone Faviola Tellez Primary Care Provider Isa Suzie Unavailable [phone] Allergies No Known Allergies Results Component Value Reference Range Notes X ray : Spine, lumbosacral Reviewed date:04/19/2025 03:45:35 PM Interpretation: Performing Lab: Notes/Report: X ray : Elbow, left Reviewed date:04/19/2025 03:45:59 PM Interpretation:old trauma, nothing acute Performing Lab: Notes/Report: old trauma, nothing acute X ray : Elbow, left Reviewed date:04/19/2025 03:45:59 PM Interpretation:old trauma, nothing acute Performing Lab: Notes/Report: old trauma, nothing acute X ray : Rib series, left Reviewed date:04/19/2025 03:45:17 PM Interpretation: Performing Lab: Notes/Report: X ray : clavicle, left Reviewed date:04/19/2025 03:46:17 PM Interpretation: Performing Lab: Notes/Report: REASON FOR VISIT lower back, left arm pain Medications Medication SIG (Take, Route, Frequency, Duration) Notes Start Date End Date Status Ondansetron 4 MG 1 tablet on the tong ue and allow to dissolve Orally q6h prn 01/30/2025 Active Aspir-Low 81 MG 1 tab(s) orally once a day for 30 day(s) Active Metoprolol Succinate ER 25 MG TAKE 1 TABLET BY MOUTH ONCE DAILY for 90 Active Symbicort 80-4.5 MCG/ACT 1 puffs Inhalation qid Active Albuterol Sulfate HFA 108 (90 Base) MCG/ACT 1 puff as needed Inhalation every 4 hrs, prn 11/18/2023 Not-Taking Rosuvastatin Calcium 40 MG 1 tablet Orally Once a day for 90 days 04/03/2024 Active Glimepiride 2 MG TAKE 1 TABLET BY SANJANA TH ONCE DAILY WITH BREAKFAST OR THE FIRST MAIN MEAL OF THE DAY for 90 Active CoQ10 200 MG as directed Orally Active Janumet 50-500 MG 1 tab(s) Orally once daily for 90 days Active Triamterene-HCTZ 37.5-25 MG 1/2 tablet in the morning Orally Once a day Active Albuterol Sulfate HFA 108 (90 Base) MCG/ACT 1 puff as needed Inhalation every 4 hrs, prn 02/01/2025 Not-Taking Yzjrtkbvh-Notwfkfe-VE 30-2-10 MG/5ML 5-10 ml Orally 4 times a day, prn 02/01/2025 Not-Taking Zithromax Z-Alberto 250 MG 2 pills first day then one daily for 4 days orally as directed 11/18/2023 Not-Taking Problems Problem Type SNOMED Code ICD Code Onset Dates Problem Status W/U Status Risk Notes Problem 56062607 Type 2 diabetes mellitus with other specified complication, unspecified whether penitentiary insulin use (E11.69) Active confirmed Problem 98356407 Chronic obstructive pulmonary disease, unspecified COPD type (J44.9) Active confirmed Vital Signs Blood pressure systolic 110 mm Hg 04/18/20 25 Blood pressure diastolic 68 mm Hg 025 Heart Rate 71 /min 04/18/2025 Height 64 in 04/18/2025 Weight 168.8 lbs 04/18/2025 BMI 28.97 kg/m2 04/18/2025 Encounters Encounter Location Date Provider Diagnosis [facility] [address] [facility] [address] [place], [place] [id number] 04/18/2025 Suzie Moss History of fall Z91. 81 ; Pain of left clavicle M89.8X1 ; Left elbow pain M25.522 ; Mid back pain M54.9 ; Acute midline low back pain without sciatica M54.50 ; Rib pain on left side R07.81 ; Imbalance R26.89 ; Type 2 diabetes mellitus with other specified complication, unspecified whether terminal block assembler insulin use E11.69 ; Chronic obstructive pulmonary disease, unspecified COPD type J44.9 and BMI 28.0-28.9,adult Z68.28 Assessments Encounter Date Diagnosis (ICD Code) Assessment Notes Treatment Notes Treatment Clinical Notes Section Notes 04/18/2025 History of fall (ICD-10 - Z91.81) 04/18/2025 Pain of left clavicle (ICD-10 - M89.8X1) 04/18/2025 Left elbow pain (ICD-10 - M25.522) 04/18/2025 Mid back pain (ICD-10 - M54.9) 04/18/2025 Acute midline low back pain without sciatica (ICD-10 - M54.50) 04/18/2025 Rib pain on left side (ICD-10 - R07.81) 04/18/2025 Imbalance (ICD-10 - R26.89) 04/18/2025 Type 2 diabetes mellitus with other specified complication, unspecified whether penitentiary insulin use (ICD-10 - E11.69) 04/18/2025 Chronic obstructive pulmonary disease, unspecified COPD type (ICD-10 - J44.9) 04/18/2025 BMI 28.0-28.9,adult (ICD-10 - Z68.28) Plan Of Treatment Pending Test Test Name Order Date X ray : Spine, thoracic spine 04/18/2025 Next Appt Details Follow Up: via phone to repo rt test results, Reason: Provider Name:Suzie fuentes, 05/16/2025 09:15:00 AM, [address], Suite [facility] [place], [id number], Progress Notes * JOSHUA SIMONSOB: 9 (74 yo F)Acc No.[id number]:04/18/2025 Progress Notes Patient: DIPESH SAUCEDA Provider: JUANITA Ochoa :1950 A ge:74 Y S ex:Female Date:04/18/2025 Address:[address] [place], [place] [id number] Pcp:Faviola Tellez Subjective: * Chief Complaints: * 1 . Lower back, left arm pain. * HPI: L ower back: 74 year old female presents with c/o Low Back Pain. c/o radiation of pain P t sts she fell again and landed on her buttocks. She has pain now in the mid back and low back and the pain goes down to her lt knee. She tried to catch herself with the left arm and has pain along the elbow and clavical and in the left ribs. Pt sts she cannot walk very far w/o feeling like she's going to fall down. E lbow/Arm: c/o pain l eft side. Pt sts the pain is her whole left arm and into her lt hand. * ROS: D ERMATOLOGY: no R kash. [...] Diagno stic Procedure: B ronchitis , Pneumonia/ [facility] 02/02/2008, Chest Pains- [facility] 12/27-05/2009, Heart Cath- [facility] 01/15/2009, Acquired Pneumonia- [place] [facility] 09/23/2010, Pneumonia- [facility] ER 09/25/2013, SOA, back and chest pain- [facility] ER 08/2017, Sinusitis- [facility] ER 04/23/2019, Rash- [facility] [place] [place] 07/22/2019, Blood Sugar 59- [facility] ER 02/08/2021, Cough - [facility] Express [facility] 01/21/2025. * Family History: [...] Aerosol 1 puffs Inhalation qid , Taking Ondansetron 4 MG Tablet Disintegrating 1 tablet on the tongue and allow to dissolve Orally q6h prn , Taking Glimepiride 2 MG Tablet TAKE 1 TABLET BY MOUTH ONCE DAILY WITH BREAKFAST OR THE FIRST MAIN MEAL OF THE DAY , Taking Janumet 50-500 MG Tablet 1 tab(s) Orally once daily , Not-Taking Albuterol Sulfate HFA 108 (90 Base) MCG/ACT Aerosol Solution 1 puff as needed Inhalation every 4 hrs, prn , Not-Taking Tjfpfdcny-Tremdfyj-PD 30-2-10 MG/5ML Syrup 5-10 ml Orally 4 times a day, prn , Not-Taking Albuterol Sulfate HFA 108 (90 Base) MCG/ACT Aerosol Solution 1 puff as needed Inhalation every 4 hrs, prn , Not- Taking Zithromax Z-Alberto 250 MG Tablet 2 pills first day then one daily for 4 days orally as directed , Medication List reviewed and reconciled with the patient * Allergies: N .K.D.A. Objective: * Vitals: W t: 168.8, Temp: 97.9, BP: 110/68, HR: 71, Nurse: mm, Ht: 64, BMI:28.97. * Examination: G eneral Examination: General Appearance: N AD. Neck: t tp along the left clavical. Chest: n ormal shape and expansion, ttp along the left ribs. Heart: R SR. Lungs: c lear to auscultation. Extremities: t tp along the left elbow, no ttp along the left shoulder or wrist. L ower back: Inspection: n ormal curvature of spine. Palpation: t tp along the mid T-spine and the low L-spine.? Straight leg raising test: n egative bilaterally. Motor system: n ormal bilaterally. Sensory exam: n ormal bilateral LE. Gait: m oves slowly due to pain. Range of motion: d ecreased at terminal ranges. ? Assessment: * Assessment: 1. H istory of fall - Z91.81 (Primary) 2 . P ain of left clavicle - M89.8X1? 3. L eft elbow pain - M25.522 4 . M id back pain - M54.9? 5. A cute midline low back pain without sciatica - M54.50 6 . Rib pain on left side - R07.81 7 . I mbalance - R26.89 8 .?Type 2 diabetes mellitus with other specified complication, unspecified whether terminal block assembler insulin use - E11.69 9 . C hronic obstructive pulmonary disease, unspecified COPD type - J44.9 1 0. B PR 28.0-28.9,adult - Z68.28 Plan: * Treatment: 2.?Left elbow pain?Imaging: X ray : Elbow, left (Performed Date - 04/18/2025)?old trauma, nothing acute* Suzie Moss 04/19/2025 0 3:45:55 PM >see TE 3.?Mid back pain?Imaging: X ray : Spine, thoracic spine4.?Acute midline low back pain without sciatica?Imaging: X ray : Spine, lumbosacral (Performed Date - 04/18/2025)* Suzie Moss 04/19/2025 0 3:45:30 PM >see TE 5.?Rib pain on left side?Imaging: X ray : Rib series, left (Performed Date - 04/18/2025)* IsaSuzie 04/19/2025 0 3:45:12 PM >see TE * Procedure Codes: G 2211 Complex e/m visit add on, G8420 BMI<30 AND >=22 CALC & DOCU, G8950 PREHTN/HTN BP DOC INDCD F/U DOC, G8752 MOST RECENT SYSTOLIC BP < 140MM HG, G8754 MOST RECENT DIASTOLIC BP < 90MM HG, 3017F COLORECTAL CA SCREEN DOC REV * Preventive Medicine: Screening / Special Tests: C olonoscopy , polyps, hemorrhoids, repeat 5 years. * Follow Up: v ia phone to report test results * Billing Information: * Visit Code: 33656 Office Visit, Est Pt., Level 4. * Procedure Codes: G2211 Complex e/m visit add on. G8420 BMI<30 AND >=22 CALC & DOCU. G8950 PREHTN/HTN BP DOC INDCD F/U DOC. G8752 MOST RECENT SYSTOLIC BP < 140MM HG. G8754 MOST RECENT DIASTOLIC BP < 90MM HG. 3017F COLORECTAL CA SCREEN DOC REV. * Electronic signature of JUANITA Antony on 05/11/2025 at 07:18 AM EDT Sign off status: Pending * Provider: JUANITA Ochoa Date: 0 04/18/2025 Generated for Nicole ng/Fajuang/eTransmitting on: 0 05/11/2025 07:18 AM EDT History and Physical Notes * HPI (History of Present Illness) Category Sub-Category Detail Notes Category Not es Lower back Low Back Pain radiation of pain Pt sts she fell agai n and landed on her buttocks. She has pain now in the mid back and low back and the pain goes down to her lt knee. She tried to catch herself with the left arm and has pain along the elbow and clavical and in the left ribs. Pt sts she cannot walk very far w/o feeling like she's going to fall down Elbow/Arm pain left side. Pt st s the pain is her whole left arm and into her lt hand Examination Category Sub-Category Detail Notes Category Not es General Examination Heart: RSR Lungs: clear to auscultatio n Extremities: ttp along the left e lbow, no ttp along the left shoulder or wrist General Appearance: NAD Neck: ttp along the left c lavical Chest: normal shape and exp ansion, ttp along the left ribs Lower back Straight leg raising test: negative bilat erally Motor system: normal bilaterally Sensory exam: normal bilateral LE Gait: moves slowly due to pain Inspection: normal curvature of spine Palpation: ttp along the mid T- spine and the low L-spine Range of motion: decreased at termina l ranges
--- OUTSIDE RECORDS SUMMARY | 2025-05-11 07:18 | XMS_ITS | Patient Health Record ---
Author Organization [facility] Address [address] [facility] [address] [id number] Care Team Providers Care Configuration Specialist Name Role Phone Faviola Tellez Primary Care Provider Patrizia Rai Unavailable [phone] LibradoSuzie johnson Unavailable [phone] Allergies No Known Allergies Results Component Value [...] 126 Performing Lab: Notes/Report: Test performed by [facility], [employer] [address] [place] [address] , [address], [place] [address] Genaro Moran MD, Copy Reader CLIA: [id number] Sodium 142 135-145 mmol/L Potassium 4.4 3.5-5.3 [...] Interpretation:Negative Performing Lab: Notes/Report: Test performed by [facility] [address] [place] [address] , [address], [place] [address] Genaro Moran MD, Copy Reader CLIA: [id number] SARS-CoV-2, RNA: Not Detected Not Detected This [...] perform high complexity testing. Test performed by [employer], [employer] d/b/a [employer] , [address] , [place] [address], Nani Grewal DO, Copy Reader, CLIA# [id number] First Test? Yes Employed in Healthcare? No Symptomatic as defined by CDC? Yes Date of Symptom Onset? 01/21/2025 Hospitalized? No ICU? No Resident in Congregate Care Setting? No ? No Covid test (in house) Reviewed date:02/01/2025 11:50:13 AM Interpretation: Performing Lab: Notes/Report: Result: Neg TEN-Upper Respiratory PCR Reviewed date:02/05/2025 01:20:10 PM Interpretation:Morazella catarrhalis Performing Lab: Notes/Report: Morazella catarrhalis CBC Fingerstick (in house) Reviewed date:02/01/2025 11:51:53 [...] - 38 plat 152 100 - 400 Influenza Screen (in house) Reviewed date:02/01/2025 11:49:55 AM Interpretation: Performing Lab: Notes/Report: results Neg Mammogram Reviewed date:05/01/2025 02:52:49 PM Interpretation:Negative Performing Lab: Notes/Report: Negative result neg Glycohemoglobin A1c (in hous e) Reviewed date:06/16/2024 11:23:34 AM Interpretation:10.1 Performing Lab: Notes/Report: 10.1 glycohemoglobin 10.1% 5 - 6.5 % X ray : Spine, lumbosacral Reviewed date:04/19/2025 [...] date:04/19/2025 03:46:17 PM Interpretation: Performing Lab: Notes/Report: X ray : Spine, lumbosacral Reviewed date:06/23/2024 10:36:03 AM Interpretation:degenerative changes, see 06/23 f/u OV Performing Lab: Notes/Report: degenerative changes, see 06/23 f/u OV Medications Medication SIG (Take, Route, Frequency, Duration) Notes Start Date End Date Status Albuterol Sulfate HFA 108 (90 Base) MCG/ACT 1 puff as needed Inhalation every 4 hrs, prn 02/01/2025 Not-Taking Ondansetron 4 MG 1 tablet on the tong ue and allow to dissolve Orally q6h prn 01/30/2025 Active Bhharhrok-Cmrovdrd-ET 30-2-10 MG/5ML 5-10 ml Orally 4 times a day, prn 02/01/2025 Not-Taking Aspir-Low 81 MG 1 tab(s) orally once a day for 30 day(s) Active Metoprolol Succinate ER 25 MG TAKE 1 TABLET BY MOUTH ONCE DAILY for 90 Active Symbicort 80-4.5 MCG/ACT 1 puffs Inhalation qid Active Albuterol Sulfate HFA 108 (90 Base) MCG/ACT 1 puff as needed Inhalation every 4 hrs, prn 11/18/2023 Not-Taking Zithromax Z-Alberto 250 MG 2 pills first day then one daily for 4 days orally as directed 11/18/2023 Not-Taking Rosuvastatin Calcium 40 MG 1 [...] the morning Orally Once a day Active Immunizations Vaccine Route Administration Date Status Comme nts cLzefgea-wghpzwnlm-pjmhymp e pts. IM Intramuscular 10/30/2014 Administered xFluzone Intradermal (18-64yrs)-trivalent ID Intradermal 08/08/2012 Administered xFluzone (6mos and older)-trivalent IM Intramuscular 12/14/2013 Administered xFlu shot-36 months and older IM Intramuscular 10/16/2008 Administered Tetanus Tdap-Adacel (over 7yrs) IM Intramuscular 03/24/2017 Administered Prevnar (PCV13) IM Intramuscular 10/30/2014 Administered PNEUMOVAX 23 VACCINE IM Intramuscular 08/08/2012 Administe red PNEUMOVAX 23 VACCINE IM Intramuscular 07/08/2020 Administe red Fluzone High Dose (65yr and older) IM Intramuscular 09/22/2021 Administered Fluzone High Dose (65yr and older) IM Intramuscular 08/23/2023 Administered DT, 7 YEARS OR OLDER Unknown 01/23/1997 Administered COVID 19 Moderna Unknown 01/01/2021 Administered COVID 19 Moderna Unknown 01/29/2021 Administered Problems Problem Type SNOMED Code ICD Code Onset Dates Problem Status W/U Status Risk Notes Problem Vitamin D deficiency (52625042) Vitamin D deficiency NOS (268.9) Active confirmed Problem 338422789 Type 2 diabetes mellitus without complications (E11.9) Active confirmed Problem Hypoglycemia (091205551) Hypoglycemia (E16.2) Active confirmed Problem 60340716 Type 2 diabetes mellitus with hyperglycemia (E11.65) Active confirmed Problem 24198833 Sciatica of left side (M54.32) Active confirmed Problem 87343964 Arteriosclerotic cardiovascular disease (I25.10) Active confirmed Problem Hyperlipidemia (21298688) Hyperlipidemia, unspecified (E78.5) Active confirmed Problem 240194760 Status cardiac pacemaker (Z95.0) Active confirmed Problem 21070833 Chronic obstruct rossi pulmonary disease, unspecified COPD type (J44.9) Active confirmed Problem 889399352 Imbalance (R26.89) Active confirmed Problem 233893775 Dyslipidemia (E78.5) Active confirmed Problem 622765719 Osteopenia, unspecified location (M85.80) Active confirmed Problem 64856805 Fibrocystic july st disease (FCBD), unspecified laterality (N60.19) Active confirmed Problem 293095318 Mild intermitten t asthmatic bronchitis with acute exacerbation (J45.21) Active confirmed Problem 177681916 Type 2 diabetes mellitus without complication, unspecified whether terminologist insulin use (E11.9) Active confirmed Problem 273065360 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) Active confirmed Problem 997100784 Basal cell carcinoma (BCC) of ala nasi (C44.311) Active confirmed Problem 82838645 Type 2 diabetes mellitus with other specified complication, unspecified whether nursing home insulin use (E11.69) Active confirmed Problem 76693218 Primary hypertension (I10) Active confirmed Problem 623483444 Screening mammog alan for breast cancer (Z12.31) Active confirmed Vital Signs Heart Rate 71 /min 04/18/2025 Blood pressure diastolic 68 mm Hg 04/18/2025 Height 64 in 04/18/2025 Blood pressure systolic 110 mm Hg 04/18/2025 Weight 168.8 lbs 04/18/2025 BMI 28.97 kg/m2 04/18/2025 Encounters Encounter Location Date Provider Diagnosis [facility] [address] [place], [place] [id number] 02/05/2025 Suzie Isa Bronchitis J40 [facility] [address] [place], [place] [id number] 04/19/2025 Suzie Crowdy [facility] [address] [place], [place] [id number] 04/20/2025 Suzie Crowdy [facility] [address] [place], [place] [id number] 04/18/2025 Suzieluis Moss History of fall Z91. 81 ; Pain of left clavicle M89.8X1 ; Left elbow pain M25.522 ; Mid back pain M54.9 ; Acute midline low back pain without sciatica M54.50 ; Rib pain on left side R07.81 ; Imbalance R26.89 ; Type 2 diabetes mellitus with other specified complication, unspecified whether terminologist insulin use E11.69 ; Chronic obstructive pulmonary disease, unspecified COPD type J44.9 and BMI 28.0-28.9,adult Z68.28 [facility] [address] [place], [place] [id number] 06/09/2024 Faviola Tellez Acute left-sided low back pain with left-sided sciatica M54.42 ; Type 2 diabetes mellitus without complication, unspecified whether nursing home insulin use E11.9 ; Primary hypertension I10 ; Status cardiac pacemaker Z95.0 and Imbalance R26.89 [facility] [address] [place], [place] [id number] 06/16/2024 Faviola Tellez Sciatica of left janice e M54.32 and Type 2 diabetes mellitus with hyperglycemia E11.65 [facility] [address] [facility] [address] [place] [id number] 06/23/2024 Faviola Tellez Sciatica of left janice e M54.32 ; Type 2 diabetes mellitus without complications E11.9 and Arteriosclerotic cardiovascular disease I25.10 [facility] [address] [facility] [address] [place] [id number] 07/14/2024 Suzie Crowdy Sciatica of left janice e M54.32 [facility] [address] [place] [id number] 01/30/2025 Patrizia Rai Type 2 diabetes karl itus without complications E11.9 ; Dyslipidemia E78.5 ; Primary hypertension I10 ; Gastroenteritis K52.9 ; URI (upper respiratory infection) J06.9 and Back pain M54.9 [facility] [address] [address] [place] [id number] 02/01/2025 Suzie Crowdy Acute URI J06.9 and Bronchitis J40 Assessments Encounter Date Diagnosis (ICD Code) Assessment Notes Treatment Notes Treatment Clinical Notes Section Notes 06/23/2024 Type 2 diabetes mellitus without complications (ICD-10 - E11.9) 06/23/2024 Sciatica of left side (ICD-10 - M54.32) 06/16/2024 Sciatica of left side (ICD-10 - M54.32) 06/09/2024 Acute left-sided low back pain with left-sided sciatica (ICD-10 - M54.42) 06/09/2024 Type 2 diabetes mellitus without complication, unspecified whether terminologist insulin use (ICD-10 - E11.9) 04/18/2025 History of fall (ICD-10 - Z91.81) 04/18/2025 Pain of left clavicle (ICD-10 - M89.8X1) 02/01/2025 Bronchitis (ICD-10 - J40) 02/01/2025 Acute URI (ICD-10 - J06.9) 07/14/2024 Sciatica of left side (ICD-10 - M54.32) Patient is improving with PT. She has an appt scheduled with pain management. Has not been taking the meloxicam but it did help when she was taking it so she will start back on it. 01/30/2025 Type 2 diabetes mellitus without complications (ICD-10 - E11.9) will hol glimepiride whie she is not eating 01/30/2025 Dyslipidemia (ICD-10 - E78.5) 02/05/2025 Bronchitis (ICD-10 - J40) 01/30/2025 Primary hypertension (ICD-10 - I10) 04/18/2025 Left elbow pain (ICD-10 - M25.522) 06/09/2024 Primary hypertension (ICD-10 - I10) 06/23/2024 Arteriosclerotic cardiovascular disease (ICD-10 - I25.10) 06/16/2024 Type 2 diabetes mellitus with hyperglycemia (ICD-10 - E11.65) 06/09/2024 Status cardiac pacemaker (ICD-10 - Z95.0) 04/18/2025 Mid back pain (ICD-10 - M54.9) 01/30/2025 Gastroenteritis (ICD-10 - K52.9) will hold trimamterene /HCTZ while she is not drinking; stressed need to increase fluid intake; she demonstrated understanding 01/30/2025 URI (upper respiratory infection) (ICD-10 - J06.9) fluids, rest, supportive measures for fever/symptom relief 04/18/2025 Acute midline low back pain without sciatica (ICD-10 - M54.50) 06/09/2024 Imbalance (ICD-10 - R26.89) 04/18/2025 Rib pain on left side (ICD-10 - R07.81) 01/30/2025 Back pain (ICD-10 - M54.9) follows with Pain management; UA is neg fot UTI 04/18/2025 Imbalance (ICD-10 - R26.89) 04/18/2025 Type 2 diabetes mellitus with other specified complication, unspecified whether terminologist insulin use (ICD-10 - E11.69) 04/18/2025 Chronic obstructive pulmonary disease, unspecified COPD type (ICD-10 - J44.9) 04/18/2025 BMI 28.0-28.9,adult (ICD-10 - Z68.28) Plan Of Treatment Pending Test Test Name Order Date X ray : Spine, thoracic spine 04/18/2025 colonoscopy 04/20/2025 Next Appt Details Provider Name:Suzie fuentes, 05/16/2025 09:15:00 AM, [address], [address], [place], [place], [id number], Insurance Providers Payer Name Payer Address Payer Phone Subscriber Number Group Number Insured Name Patient Relationship to Insured Coverage Start Date Coverage End Date MEDICARE PART B [address] [address] [place] [id number] [id number] DIPESH SIMONS Self - patient is the insured [facility] [employer] [address] [place] [id number] DIPESH SIMONS Self - patient is the insured Medications Administered Medication Instructions Date of Administration Dosage Notes Dexamethasone 11/10/2005 Dexamethasone 07/02/2014 4 mg Dexamethasone 07/03/2016 1 mL Medical (General) History Medical History History ICD Code Type 2 Diabetes Hyperlipidemia asthma, Pulmonary consult with Dr. Mara wiseman in 2007 pneumonia 04/2009 Echo 11/06/19 EF=38.3% COVID 19 x2 (last January 29) 2020, Mode rna Surgical History Surgery Date(Month/Year) Hysterectomy 1987 Cholecystectomy 1998 LT Medial Meniscectomy- Dr. Sylvester LT Knee Replacement 11/04/2012 cardiac pacemaker 08/30/2015 cataract/bilateral Hospitalization History Reason Date(Month/Year) Cough - [facility] Express [facility] 01/21/2025 Blood Sugar 59- [facility] ER 02/08/2021 Rash- [facility] 07/22/2019 Sinusitis- [facility] ER 04/23/2019 SOA, back and chest pain- [facility] ER 08/2017 Pneumonia- [facility] ER 09/25/2013 Acquired Pneumonia- [place] [facility] 09/23/2010 Heart Cath- [facility] 01/15/20 09 Chest Pains- [facility] 12/27-05/2009 Pneumonia/ [facility] 02/02/2008 Bronchitis
[2025-05-11 07:54] VITALS: BP 181/74; PULSE 72; RESP 17; TEMP 36.1; O2SAT 98
[2025-05-11 08:09] VITALS: BMI 27.4
--- NOTE | 2025-05-11 08:10 | PC.NURSE ---
pt has a pacemaker that is set at 70bpm. per LUIS ARMANDO Wilkes it is fine to NOT give pt any CCTA medications d/t pacemaker.
[2025-05-11 08:26] LABS: Chloride 104 mmol/L (98-107)
[2025-05-11 08:27] LABS: Sodium 135 mmol/L (136-145)
[2025-05-11 08:29] LABS: Blood Urea Nitrogen 20 mg/dl (7-17); Creatinine Clearance Estimated 57 mL/min (50-200); Estimated Glomerular Filt Rate 61 ml/min (>60); GFR (African American) 74 ML/MIN (>60)
[2025-05-11 08:30] LABS: Calcium 9.2 mg/dl (8.4-10.2); Carbon Dioxide 29 mmol/L (22.0-30.0); Glucose 255 mg/dl (74-100)
--- NOTE | 2025-05-11 08:30 | CT_ITS ---
APPROVED REPORT Neurodiagnostic Technician: CLINICAL INDICATION Chest Pain TECHNIQUE Image Acquisition: A 128 slice MDCT scanner (Food on the Table[employer] View) was used for data acquisition. A noncontrast coronary calcium scan was performed. A CT attenuation threshold of 130 Hounsfield units (HU) was used for the detection of calcium in contiguous voxels of 1 sq mm in area to be counted as individual lesions. Bolus tracking in the ascending aorta with a threshold of 180 HU was performed. Immediately afterwards, ECG synchronized cardiac CT was then performed from the cardiac base to apex using retrospective gating with ECG tube current modulation. A total of 85 mL of Isovue 370 mg/mL contrast medium was administered at 5 mL/sec followed by a saline flush using a biphasic injection protocol. A tube voltage of 120 KVp was used. The patient received the following medications prior to the cardiac CT. 0.8 mg of sublingual nitroglycerin The average heart rate at the time of acquisition was 69 bpm and regular. Image Reconstruction Transaxial images were reconstructed at 0.67 mm slide thickness. Data was reviewed interactively on an advanced workstation capable of 2 and 3-dimensional displays in all conventional reconstruction formats, including multiplanar reformations, maximum intensity projections, curved multiplanar reformations, and volume rendered reconstructions. When applicable, selected routine images describing the relevant coronary anatomy and pathology were saved and sent to PACS. Complications None Technical Quality Overall image quality was fair, due to presence of pacemaker and inability to clearly visualize the proximal RCA segment. Coronary artery opacification was adequate. Total DLP (Dose-Length Product) is 1406.8 mGy-cm. The reported value represents the total of one or more individual components during the CT acquisition of this date and at this time, and as such, the same value may appear in more than one CT report depending on the interpreting/reporting physicians. COMPARISON None FINDINGS CT Coronary Calcium Scoring LMA (Left Main Artery) = 0 LAD (Left Anterior Descending) = 0 LCX (Left Coronary Circumflex) = 0 RCA (Right Coronary Artery) = 0 Total Calcium Score = 0 using the AJ-130 method. The interpretation of the calcium heart score is based on the following continuum*: 0 = no calcified plaque detected (risk of coronary artery disease is very low ??? less than 5%) 1-10 = calcium detected in extremely minimal levels (risk of coronary diseases is still low ??? less than 10%) 11-100 = mild levels of plaque detected with certainty (mild or minimal narrowing of heart arteries is likely) 101-400 = definite,at least moderate levels of plaque detected (relatively high risk of a heart attack within 3-5 years) >401-999 = extensive levels of plaque detected (high risk of heart attack, high levels of vascular disease are present, high likelihood of at least one significant coronary narrowing) *The calcium heart score quantifies the burden of coronary calcification/plaque in the coronary arteries. The calcium heart score is not able to evaluate the presence or burden of non-calcified (i.e. soft) plaque. There is no identifiable calcification in the aortic valve, mitral annulus or mitral valve, pericardium, or myocardium. Coronary CT Angiography The coronary arterial system is right dominant. Quantitative Stenosis Grading: Left Main (LM): The left main originates normally from the left sinus of Valsalva. The LM bifurcates into the left anterior descending artery and left circumflex artery. The LM is patent with no evidence of atherosclerosis. Left Anterior Descending (LAD) and Diagonal Branches: The LAD gives off 3 diagonal branch(es). The LAD and its branches are patent with no evidence of atherosclerosis. There is no evidence of LAD-myocardial bridge. Left Circumflex (LCX) and Obtuse Marginals (OM): The LCX gives off 2 Obtuse Marginal (OM) branch(es). The LCX and its branches are patent with no evidence of atherosclerosis. Right Coronary Artery (RCA): The RCA originates normally from the right sinus of Valsalva. The RCA gives off a posterior descending artery (PDA) and posterolateral (PL) branches. The RCA and its branches are patent with no evidence of atherosclerosis. Non-Coronary Cardiac Findings: Analysis of the left ventricular (LV) structure and function was performed after 3-D reconstruction of the LV from axial images, with user-corrected automatic contouring for assessment of LV volumes and user-defined reconstruction from oblique planes for measurement of 3-D cardiac structure and function. -The left ventricle systolic function is normal. -There is no left atrial appendage filling defect. Two right pulmonary veins and two left pulmonary veins drain normally into the left atrium. -No pericardial thickening or calcification. -Central and branch pulmonary arteries in the uzhaq-lv-etol are unremarkable. -Thoracic aorta within the visualized thoracic aortic-branches in the fvnfz-sd-wowt is unremarkable. Extracardiac Structures No significant extra-cardiac findings. Note, however, that this study is focused on the cardiac findings. IMPRESSION -Overall image quality was fair, due to presence of pacemaker and inability to clearly visualize the proximal RCA segment. -No coronary calcification with an Agatston score = 0 using the AJ-130 method. -No evidence of significant flow-limiting atherosclerosis of the coronary arteries. -CAD-RADS 0. Management recommendations per ACC/AHA guidelines*, as clinically appropriate. *Recommendations: CAD RADS 0: Reassurance. Consider non-atherosclerotic causes of chest pain. CAD RADS 1: Consider non-atherosclerotic causes of chest pain. Consider preventive therapy and risk factor modification. CAD RADS 2: Consider non-atherosclerotic causes of chest pain. Consider preventive therapy and risk factor modification, particularly for patients with nonobstructive plaque in multiple segments. CAD RADS 3: Consider further functional testing. Consider symptom-guided anti-ischemic and preventive pharmacotherapy as well as risk factor modification per published guideline statements. CAD RADS 4A: Consider further functional testing or invasive coronary angiography with revascularization per published guideline statements. Consider symptom-guided anti-ischemic and preventive pharmacotherapy as well as risk factor modification per published guideline statements. CAD RADS 4B: Invasive coronary angiography recommended with revascularization per published guideline statements. Consider symptom-guided anti-ischemic and preventive pharmacotherapy as well as risk factor modification per published guideline statements. CAD RADS 5: Consider invasive angiography and/or viability assessment with revascularization per published guideline statements. Consider symptom-guided anti-ischemic and preventive pharmacotherapy as well as risk factor modification per published guideline statements. CRITICAL RESULT None COMMUNICATION Per this written report The coronary and cardiac findings of this CCTA were reviewed, reported, and signed by Jared Means MD (Livestock Producer) Conclusion Electronically signed by : Ani Means MD 05/12/2025 22:22:15
[2025-05-11 08:51] VITALS: BP 126/88; PULSE 70; RESP 17; O2SAT 98
[2025-05-11] MEDS: NITROGLYCERIN 0.4MG SL TABLET SL (08:51)
[2025-05-11 08:52] VITALS: BP 184/94; PULSE 70; RESP 17; O2SAT 98
[2025-05-11 08:58] VITALS: BP 127/63; PULSE 70; RESP 18; O2SAT 98
[2025-05-11] MEDS: 0.9 % SODIUM CHLORIDE 50 ML VIAL IV (09:02)
[2025-05-11] MEDS: SODIUM CHLORIDE 0.9% 10ML SYR (RAD ONLY) 10 ML IV (09:02)
[2025-05-11] MEDS: IOPAMIDOL-370 (76%);100ML BOTTLE 85 ML IV (09:02)
== END 2025-05-11 09:06 | disposition home or self-care (01) ==
PROVIDERS: PCP Family Medicine; Visit Provider Nurse Practitioner Family
DX: R07.89 Other chest pain (principal); Z95.0 Presence of cardiac pacemaker
CPT/HCPCS: 75574; 80048; Q9967

== ENCOUNTER 2025-06-21 10:00 | Outpatient (RCR) | payer MEDICARE, SELFPAY ==
--- NOTE | 2025-05-24 17:31 | HMH.PTOPEV ---
PT Outpatient Evaluation Rehab PT Outpatient Evaluation Start: 05/24/25 10:59 Freq: Status: Active Protocol: Document 05/24/25 17:09 ELICEO (Rec: 05/24/25 17:31 PHORNE [id number]) E-signed By Madhav Felton, PT Outpatient Therapy Subjective History Subjective History This is the initial PT eval for Edyta Christian, 74 yowf who presents with c/o L side low back and posterior hip pain x ~ 1 yr S/P multiple falls. She states, There are all kinds of reasons I fall, but usually I just fall straight backwards right onto my left side.: She reports unknown reason for her apparent lack of balance. She had recent lumbar X-rays which show L1-3 mild anterior osteophytes and lower lumbar facet irritation. She reports pain is constant when standing or walking and not present at all with sitting. She also reports lying on her R side increases the pain in the L side of her back. She reports hx of prior lumbar and L hip injections with little benefit. PMH of atypical angina with pacemaker placement. New diagnosis of No cancer in past 12 months? Chief Complaint Pain Symptom Type Sharp Symptoms Relieved By Rest/Positioning Symptoms Aggravated Standing,Walking By Prior Functional None Limitations Current Functional Standing,Walking Limitations Symptom Description Activity Dependent Level of pain today 8 (0-10) Pain scale - at its 0 best (0-10) Pain scale - at its 9 worst (0-10) Lumbopelvic Eval Palapation tenderness left lumbar spinal Yes: 2/4 tenderness paraspinal Yes: L side lumbar, 2/4 tenderness Lumbar/Sacral Tenderness Palpation Findings Lumbar/Sacral L SI 2/4 Palpation Overall Comment Accessory Movement L-spine Vertebrae Central P/A Boyds Accessory Movements that Elicit Symptoms L2 bilateral L3 bilateral L4 bilateral L5 bilateral S1 bilateral Range of Motion Lumbar Spine Active 0-65 Flexion Range of Motion (degrees) Lumbar Spine Active 0-10 Extension Range of Motion (degrees) Left Lumbar Spine 0-10 Lateral Flexion Active Range of Motion (degrees) Right Lumbar Spine 0-20 Lateral Flexion Active Range of Motion (degrees) Lumbar Spine ROM Pain Limitations Manual Muscle Test Bilateral Knee Extension 5 Normal Strength Grade Knee Flexion 5 Normal Strength Grade Hip Flexion Strength 4 Good Grade Hip Abduction 4 Good Strength Grade Hip Adduction 4+ Good+ Strength Grade Special Tests Hip Scouring ( Negative Left,Negative Right Quadrant) Test Hip Brandyn (SANTIAGO) Negative Right,Positive Left Test Hip Piriformis Test Negative Right,Positive Left Hip Bowstring (Cram) Negative Right,Positive Left Test Sciatic Nerve Negative Left,Negative Right Tension Test Unilateral Straight Negative Left,Negative Right Leg Raise (Lasegue) Test Sacroiliac Joint Negative Right,Positive Left Compression Test Lumbar Long [place] Negative Distraction Test/ Manual Traction Oswestry Index Section 1 Pain Intensity The pain comes and goes and is severe Section 2 Personal Care ( change my way of washing or dressing in order to avoid Washing,Dresing) pain Section 3 Lifting Pain prevents me from lifting weights off the floor Section 4 Walking I cannot walk more than 1/4 mile without increasing pain Section 5 Sitting Pain prevents me from sitting for more than 10 minutes Section 6 Standing I cannot stand more than 1/2 hour without increasing pain Section 7 Sleeping I get pain in bed, but it does not prevent me from sleeping well Section 8 Social Life Pain has no significant effect on my social life apart from limiting Section 9 Traveling I get some pain when traveling, but none of my usual forms of travel m Section 10 Changing Degreee of My pain is neither getting better or worse Pain Score and Risk Level Oswestry Sc 24 Oswestry Risk Level Moderate Disability Outpatient Therapy Assessment Impairments Problems/ Palpation Tenderness,Impaired Range of Motion,Impaired Impairmments Strength,Impaired Walking,Impaired Standing,Impaired Household Care,Impaired Stepping on Uneven Surface, Impaired Recreational Activities,Subjective C/O Pain, Impaired Self Care/Self Management Prognosis Rehab Potential Good Comment Skilled therapy is indicated to reduce pain, improve strength, and improve activity level in order to return pt to OF with all ADLs. Clinical Impression Consistent with Yes Diagnosis Short Term Goals Number of Weeks 4 Decreased Palpation Yes: 1/4 L side SI Tenderness Increase Range of Yes: Lumbar ext and L SB by 5 deg Motion Increase Strength Yes: L LE 4+/5 throughout at least Increase Ability to Yes: 15 min without pain Walk Improve Oswestry Yes: 21 or less Score Decrease Subjective Yes: 6/10 L SI at worst C/O Pain Patient to be Ind w/ Yes Advanced HEP Retirement Goals Number of Weeks 8 Decreased Palpation Yes: 0/4 L side SI Tenderness Increase Range of Yes: Lumbar ext and L SB by 10 deg Motion Increase Strength Yes: B LE 5/5 throughout Increase Ability to Yes: 30 min without pain Walk Improve Ability For Yes Household Care Improve Oswestry Yes: 18 or less Score Decrease Subjective Yes: 4/10 L SI at worst C/O Pain Patient to be Ind w/ Yes Advanced HEP Outpatient Therapy Plan of Care Treatment Plan May Include Therapeutic Exercise Yes Including Home Exercise Program Manual Therapy Yes Techniques Neuromuscular Re- Yes education Therapeutic Yes Activities to Return to Previous Functional/Work Level ADL/Self Care Yes Education Thermal Modalities Yes Ultrasound/ Yes Phonophoresis Orthotics/Bracing/ Yes Splinting Massage Yes Eval/Re-Eval Yes Frequency Times per week 2 Duration Number of Weeks 8 Addendums This patient is a No candidate for social or vocational rehab ? Patient/Guardian Yes verbally acknowledges understanding of treatment program and consents to further treatment? Patient/Guardian Yes verbally acknowledges understanding of diagnosis, prognosis and goals for treatment? Eval Complexity PT Charges 07014 - High Complexity Shoulder/Elbow Eval Shoulder Objective Measurements Elbow Objective Measurements PHYSICIAN CERTIFICATION: I certify the specified therapy services for Edyta Lopez Gino are required, authorized, and reviewed every 30 days.
--- NOTE | 2025-06-19 11:41 | HMH.RHREAS ---
Rehab Reassessment Rehab OP Re-assessment Start: 05/24/25 10:59 Freq: Status: Active Protocol: Document 06/19/25 11:28 PHOCONSUELO (Rec: 06/19/25 11:41 PHORNE [id number]) E-signed By Madhav Felton, PT Oswestry Index Section 1 Pain Intensity The pain is mild and does not vary much Section 2 Personal Care ( change my way of washing or dressing in order to avoid Washing,Dresing) pain Section 3 Lifting I can only lift very light weights at most Section 4 Walking I cannot walk more than one mile wihtout increasing pain Section 5 Sitting I can sit in any chair for as long as I like Section 6 Standing I cannot stand more than 1 hour without increasing pain Section 7 Sleeping I get pain in bed, but it does not prevent me from sleeping well Section 8 Social Life My social life is normal but increases the degree of pain Section 9 Traveling I get some pain when traveling, but none of my usual forms of travel m Section 10 Changing Degreee of My pain seems to be getting better, but improvement is Pain slow Score and Risk Level Oswestry Sc 15 Oswestry Risk Level Moderate Disability Rehab Re-assessment Subjective Subjective Pt reports, I feel ok today, I fell out of bed last week, but I didn't hurt anything. Pain in L side low back 5/10 today. Objective Objective Notes AROM Lumbar spine (in deg): FLEX 0-65, EXT 0-15, R SB 0 -20, L SB 0-15 (mildly increased pain) MMT L LE: HIP FLEX 4+/5, HIP ABD 4+/5, HIP ADD 5/5. TTP: L lumbar paraspinals and L SI 1/4 Assessment Progress Assessment Progressing as Expected Assessment Notes Increasing extension ROM with exercises, less pain with ambulation. Pt has shown improvements in LE strength and AROM of lumbar spine. Skilled therapy remains indicated in order to further reduce pain and increase strength in order to return pt to PLOF. Patient goals met STG (in 2 weeks): 6/7 goals met. Pt will improve Lumbar ext and L SB by 5 deg remains active LTG (in 4 weeks): 1/8 goals met (Oswestry 18 or less met) all other LTG remain active. Plan Plan Will continue with skilled therapy services to reduce pain and improve strength to return pt to PLOF. Frequency of Therapy 2 x/wk Duration of Therapy 4 wks Therapeutic Exercise Yes Including Home Exercise Program Manual Therapy Yes Techniques Neuromuscular Re- Yes education Therapeutic Yes Activities to Return to Previous Functional/Work Level ADL/Self Care Yes Education Thermal Modalities Yes Ultrasound/ Yes Phonophoresis Massage Yes Eval/Re-Eval Yes Time and Billing Re-Eval Time 16 Re-Eval Billing 0 Units Charge for PT No reassessment? PHYSICIAN CERTIFICATION: I certify the specified therapy services for Edyta Christian are required, authorized, and reviewed every 30 days.
== END 2025-06-21 23:59 | disposition home or self-care (01) ==
LOC: PT 10:00
PROVIDERS: PCP Family Medicine; Visit Provider Physician Assistant
DX: G57.02 Lesion of sciatic nerve, left lower limb (principal); M62.838 Other muscle spasm; M25.552 Pain in left hip; R26.89 Other abnormalities of gait and mobility; R29.6 Repeated falls
CPT/HCPCS: 97110; 97112; 97140; 97163

== ENCOUNTER 2025-07-17 10:00 | Outpatient (RCR) | payer MEDICARE, SELFPAY | END 2025-07-17 23:59 | disposition home or self-care (01) | LOC: PT 10:00 | PROVIDERS: PCP Family Medicine; Visit Provider Physician Assistant | DX: G57.02 Lesion of sciatic nerve, left lower limb (principal); M62.838 Other muscle spasm; R26.89 Other abnormalities of gait and mobility | CPT/HCPCS: 97110; 97530 ==

== ENCOUNTER 2025-08-23 14:14 | Outpatient (CLI) | payer MEDICARE, SELFPAY ==
--- OUTSIDE RECORDS SUMMARY | 2024-07-14 05:00 | XMS_ITS ---
[facility] Organization [facility] Address [address] [place] [id number] Care Team Providers Care Loader Name Role Phone Faviola Tellez Primary Care Provider Suzie Moss Unavailable [phone] Allergies No Known Allergies REASON FOR VISIT 3 week f/u Medications Medication SIG (Take, Route, Frequency, Duration) Notes Start Date End Date Status Glimepiride 2 MG 1 tablet with breakf ast or the first main meal of the day Orally Once a day; Duration: 90 days Active Janumet 50-500 MG 1 tab(s) orally once daily; Duration: 90 days Active Symbicort 80-4.5 MCG/ACT 1 puffs Inhalation qid Active Albuterol Sulfate HFA 108 (90 Base) MCG/ACT 1 puff as needed Inhalation every 4 hrs, prn 11/18/2023 Active CoQ10 200 MG as directed Orally Active Triamterene-HCTZ 37.5-25 MG 1/2 tablet i n the morning Orally Once a day Active Rosuvastatin Calcium 40 MG 1 tablet Oral ly Once a day; Duration: 90 days 04/03/2024 Active Aspir-Low 81 MG 1 tab(s) orally once a day; Duration: 30 day(s) Active Metoprolol Succinate ER 25 MG TAKE 1 TABLET BY MOUTH ONCE DAILY; Duration: 90 Active Vital Signs Blood pressure systolic 110 mm Hg 07/14/20 24 Blood pressure diastolic 60 mm Hg 024 Heart Rate 70 /min 07/14/2024 Height 64 in 07/14/2024 Weight 167.8 lbs 07/14/2024 BMI 28.80 kg/m2 07/14/2024 Encounters Encounter Location Date Provider Diagnosis [facility] [address] [place] [id number] 07/14/2024 Suzie Moss Sciatica of left janice e M54.32 Assessments Encounter Date Diagnosis (ICD Code) Assessment Notes Treatment Notes Treatment Clinical Notes Section Notes 07/14/2024 Sciatica of left side (ICD-10 - M54.32) Patient is improving with PT. She has an appt scheduled with pain management. Has not been taking the meloxicam but it did help when she was taking it so she will start back on it. Plan Of Treatment Treatment Notes Assessment Notes Sciatica of left side Patient is improvi ng with PT. She has an appt scheduled with pain management. Has not been taking the meloxicam but it did help when she was taking it so she will start back on it. Next Appt Details Follow Up: prn, Reason: Progress Notes * JOSHUA SIMONSOB: 9 (75 yo F)Acc No.[id number]:07/14/2024 Progress Notes Patient: DIPESH SAUCEDA Provider: JUANITA Ochoa :1950 A ge:73 Y S ex:Female Date:07/14/2024 Address:[facility] [place], [id number] Pcp:Faviola Tellez Subjective: * Chief Complaints: * 1 . 3 week f/u. * HPI: Jessica marques back: PT is here today for f/u on low back pain. PT states she is doing better and physical therapy which has helped. PT states pain sciatica is better. * ROS: D ERMATOLOGY: no R kash. n o H flor. G ASTROENTEROLOGY: no N ausea. n o V omiting. n o D iarrhea.? U ROLOGY: no D ifficulty urinating. n o B lood in urine. * Medical History: T ype 2 Diabetes, Hyperlipidemia, asthma, Pulmonary consult with Dr. Leung in 2007, Pneumonia 04/2009, Echo 11/06/19 EF=38.3%, COVID 19 x2 (last January 29) 2020, [employer]. * Surgical History: H ysterectomy 1986, Cholecystectomy 1998, LT Medial Meniscectomy- Dr. Sylvester 12/2008, LT Knee Replacement 11/04/2012, cardiac pacemaker 08/30/2015, cataract/bilateral . * Hospitalization/Major Diagno stic Procedure: B ronchitis , Pneumonia/ [facility] 02/02/2008, Chest Pains- [facility] 12/27-05/2009, Heart Cath- [facility] 01/15/2009, Acquired Pneumonia- [place] [facility] 09/23/2010, Pneumonia- [facility] ER 09/25/2013, SOA, back and chest pain- [facility] ER 08/2017, Sinusitis- [facility] 04/23/2019, [place] [facility] [place], Blood Sugar 59- [facility] ER 02/08/2021. * Family History: F ather: 50 yrs, [place]. M other: alive 82 yrs, [employer]. P aternal Grand Father: , ?. P aternal Grand Mother: , ?. M aternal Grand Father: , ?. M aternal Grand Mother: , ?. 3 brother(s) , 3 sister(s) . 1 daughter(s) - healthy. .? 1Brother of the flu, one with DM,. * Social History: C URRENT TOBACCO USE S moking Status: Patient does NOT smoke. C affeine: yes, frequency:1. Exercise: yes, walk. Home smoke detector use: yes. Marital Status: . 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 Past smoking status: no, Smoking status: Does not smoke. Recreational drug use: no. Alcohol: no. Sexually active: yes. Travel ouside [place]: no. * Medications: T aking Rosuvastatin Calcium 40 MG Tablet 1 tablet Orally Once a day , Taking CoQ10 200 MG Capsule as directed Orally , Taking Triamterene-HCTZ 37.5-25 MG Tablet 1/2 tablet in the morning Orally Once a day , Taking Aspir-Low 81 MG Tablet Delayed Release 1 tab(s) orally once a day , Taking Metoprolol Succinate ER 25 MG Tablet Extended Release 24 Hour TAKE 1 TABLET BY MOUTH ONCE DAILY , Taking Symbicort 80-4.5 MCG/ACT Aerosol 1 puffs Inhalation qid , Taking Albuterol Sulfate HFA 108 (90 Base) MCG/ACT Aerosol Solution 1 puff as needed Inhalation every 4 hrs, prn , Taking Glimepiride 2 MG Tablet 1 tablet with breakfast or the first main meal of the day Orally Once a day , Taking Janumet 50-500 MG Tablet 1 tab(s) orally once daily , Discontinued Meloxicam 15 MG Tablet 1 tablet Orally Once a day , Medication List reviewed and reconciled with the patient * Allergies: N .K.D.A. Objective: * Vitals: W t:167.8, Temp:97.1, BP:110/60, HR:70, Nurse:, Ht: 64, BMI:28.80. * Examination: L ower back: Inspection: n ormal curvature of spine. P alpation:? no vertebral spine tenderness, no radiation down leg, tender piriformis area on the left. S traight leg raising test: n egative bilaterally. M otor system: n ormal bilaterally, pain with figure 4 test on left. S ensory exam: n ormal bilateral LE. G ait: n ormal.?Range of motion: normal. Assessment: * Assessment: 1. S ciatica of left side - M54.32 (Primary) Plan: * Treatment: * Follow Up: p rn * Images: Billing Information: * Visit Code: 11306 Office Visit, Est Pt., Level 3. * Procedure Codes: * Electronic signature of JUANITA Antony on 08/23/2025 at 02:18 PM EDT Sign off status: Pending * Provider: JUANITA Ochoa Date: 0 07/14/2024 Generated for Niocle solomon/Carmelita/eThetalsmitting on: 02:18 PM EDT History and Physical Notes * Examination Category Sub-Category Detail Notes Category Not es Lower back Straight leg raising test: negative bilat erally Motor system: normal bilaterally, pain with figure 4 test on left Sensory exam: normal bilateral LE Gait: normal Inspection: normal curvature of spine Palpation: no vertebral spine t enderness, no radiation down leg, tender piriformis area on the left Range of motion: normal
--- OUTSIDE RECORDS SUMMARY | 2025-01-30 06:15 | XMS_ITS ---
Author Organization [facility] Address [address] [facility] [address] [place] [id number] Care Team Providers Care Sales Data Analyst Name Role Phone Faviola Tellez Primary Care Provider Fredi Patrizia Unavailable [phone] Allergies No Known Allergies Results Component Value [...] 126 Performing Lab: Notes/Report: Test performed by [employer], [facility] [address] [place] [address] , [address], [place] [address] Genaro Moran MD, Rehabilitation Services Director CLIA: [id number] Sodium 142 135-145 mmol/L Potassium 4.4 3.5-5.3 [...] Interpretation:Negative Performing Lab: Notes/Report: Test performed by [facility] [address] [place] [address] , [address], [place] [address] Genaro Moran MD, Rehabilitation Services Director CLIA: [id number] SARS-CoV-2, RNA: Not Detected Not Detected This [...] perform high complexity testing. Test performed by [employer], [employer] [facility] [employer] , [address] , [place] [address], Nani Grewal DO, Rehabilitation Services Director, CLIA# [id number] First Test? Yes Employed in Healthcare? No [...] a day; Duration: 90 days 04/03/2024 Active Ondansetron 4 MG 1 tablet on the tong ue and allow to dissolve Orally q6h prn 01/30/2025 Active Albuterol Sulfate HFA 108 (90 Base) MCG/ACT 1 puff as needed Inhalation every 4 hrs, prn 11/18/2023 Active Glimepiride 2 MG 1 tablet with breakf ast or the first main meal of the day Orally Once a day; Duration: 30 days Active CoQ10 200 MG as directed Orally Active Triamterene-HCTZ 37.5-25 MG 1/2 tablet i n the morning Orally Once a day Active Aspir-Low 81 MG 1 tab(s) orally once a day; Duration: 30 day(s) Active Metoprolol Succinate ER 25 MG TAKE 1 TABLET BY MOUTH ONCE DAILY; Duration: 90 Active Symbicort 80-4.5 MCG/ACT 1 puffs Inhalation qid Active Vital Signs Blood pressure systolic 110 mm Hg 01/31/20 25 Blood pressure diastolic 62 mm Hg 025 Heart Rate 70 /min 01/30/2025 Height 64 in 01/30/2025 Weight 159 lbs 01/30/2025 BMI 27.29 kg/m2 01/30/2025 Encounters Encounter Location Date Provider Diagnosis [facility] [address] [place] [id number] 01/30/2025 Patrizia Rai Type 2 diabetes karl [...] Appt Details Follow Up: 2 days, Reason: Progress Notes * JOSHUA SIMONSOB: 9 (75 yo F)Acc No.[id number]:01/30/2025 Progress Notes Patient: DIPESH SAUCEDA Provider: RAVINDER Kennedy :1950 A ge:74 Y S ex:Female Date:01/30/2025 Address:[facility] [id number] Pcp:Faviola Tellez Subjective: * Chief Complaints: * 1 . ER f/u; still coughing. * HPI: E NT/respiratory: 74 year old female presents with c/o cough P t presents today for a follow up from [facility]. Pt was seen on 01/21/25 with c/o [...] Diagno stic Procedure: B ronchitis , Pneumonia/ [facility] 02/02/2008, Chest Pains- [facility] 12/27-05/2009, Heart Cath- [facility] 01/15/2009, Acquired Pneumonia- [facility] 09/23/2010, Pneumonia- [facility] 09/25/2013, SOA, back and chest pain- [facility] 08/2017, Sinusitis- [facility] 04/23/2019, Rash- [facility] 07/22/2019, Blood Sugar 59- [facility] 02/08/2021, Cough - [facility] 01/21/2025. * Family History: F ather: 50 yrs, [place]. M other: alive 82 yrs, [employer]. P [...] alert, pleasant; appears not to feel well. H EENT: sclera and conjunctiva clear, PERRLA, TM's normal, translucent. O ral cavity: mucosa moist and WNL, no erythema. N lea: supple, no lymphadenopathy. Heart: RRR. L ungs: CTAB A&P; decreased BS posteriorly. A bdomen: bowel sounds present, soft; tender in all upper quads. N eurologic Exam: alert and oriented. E xtremities: n o leg edema; left anterior leg [...] Value Reference Range r esults neg * Maribeth Paulson 01/30/2025 12:2 6:09 PM > reviewed w/ [...] G 2211 Complex e/[place], [address] CAPILLARY BLOOD DRAW, [address] [place], [address] CBC WITH AUTO DIFF, 53345 Flu Test- Nasal Swab, Modifiers: QW , [address] Urinalysis, no micro, G8752 MOST RECENT SYSTOLIC BP < 140MM HG, G8754 MOST RECENT DIASTOLIC BP < 90MM HG * Follow Up: 2 days * Images: Billing Information: * Visit Code: 08124 Office Visit, Est Pt., Level 4. * Procedure Codes: G2211 Complex e/[place]. [address] CAPILLARY BLOOD [place]RAW. [address] [place]. [address] CBC WITH AUTO DIFF. 54371 Flu Test- Nasal Swab. Modifiers: QW 82424 Urinalysis, no micro. G8752 MOST RECENT SYSTOLIC BP < 140MM HG. G8754 MOST RECENT DIASTOLIC BP < 90MM HG. * Electronic signature of Destiney Rai APRN on 08/23/2025 at 02:18 PM EDT Sign off status: Pending * Provider: RAVINDER Kennedy Date: 0 01/30/2025 Generated for Nicole solomon/Carmelita/eTransmitting on: 1 02:18 PM EDT History and Physical Notes * HPI (History of Present Illness) Category Sub-Category Detail Notes Category Not es ENT/respiratory sore throat Short of Breath with exertion cough Pt presents today fo r a follow up from [facility]. Pt was seen on [...]
--- OUTSIDE RECORDS SUMMARY | 2025-02-01 06:30 | XMS_ITS ---
Author Organization [facility] Address [address] [facility] [address] [id number] Care Team Providers Care Chief Scientific Officer Name Role Phone Faviola Tellez Primary Care Provider [phone] Suzie Moss Unavailable [phone] Allergies No Known Allergies Results Component Value [...] Inhalation every 4 hrs, prn 02/01/2025 Active Qehmqzybp-Oamgccku-AA 30-2-10 MG/5ML 5-10 ml Orally 4 times a day, prn 02/01/2025 Active Rosuvastatin Calcium 40 MG 1 tablet Oral ly Once a day; Duration: 90 days 04/03/2024 Active Janumet 50-500 MG [...] BY MOUTH ONCE DAILY; Duration: 90 Active Glimepiride 2 MG 1 tablet with breakf ast or the first main meal of the day Orally Once a day; Duration: 30 days Active Triamterene-HCTZ 37.5-25 MG 1/2 [...] 02/01/2025 Encounters Encounter Location Date Provider [facility] [address] [id number] 02/01/2025 Suzie Moss Acute URI J06.9 and [...] needed Inhalation every 4 hrs, prn 02/01/2025 Nuoqgtvem-Ffbgtfry-AR 30-2-1 0 MG/5ML 5-10 ml Orally 4 times a day, prn 02/01/2025 Next Appt Details Follow Up: via phone to repo rt test results, Reason: Progress Notes * JOSHUA SIMONSOB: 9 (75 yo F)Acc No.[id number]:02/01/2025 Patient: DIPESH SAUCEDA Provider: JUANITA Ochoa :1950 A ge:74 Y S ex:Female Date:02/01/2025 Address:[facility] [place], [id number] Pcp:Faviola Tellez Subjective: * Chief Complaints: * 1 . 2 day f/u. * HPI: H PI: 74 year old female presents with c/o Here for follow up on:?dehydration. She has been sick for the past 2 weeks. She initially went to the [facility] after she was exposed to flu with [...] Diagno stic Procedure: B ronchitis , Pneumonia/ [facility] 02/02/2008, Chest Pains- [facility] 12/27-05/2009, Heart Cath- [facility] 01/15/2009, Acquired Pneumonia- [place] [facility] 09/23/2010, Pneumonia- [facility] 09/25/2013, SOA, back and chest pain- [facility] ER 08/2017, Sinusitis- [facility] 04/23/2019, Rash- [facility] 07/22/2019, Blood Sugar 59- [facility] ER 02/08/2021, Cough - [facility] Express Care 01/21/2025. * Family History: F ather: 50 yrs, [place]. M other: alive 82 yrs, [employer]. P [...] Appearance: NAD, does not appear to feel well.?HEENT: sclera and conjunctiva clear, PERRLA, TM's normal, translucent. O ral cavity:? mucosa moist and WNL, no erythema. N lea: supple, no lymphadenopathy. C hest: normal shape and expansion. H eart: RRR. L ungs: f aint expiratory wheezes, no rales. A bdomen: b owel sounds present, soft and nontender. N eurologic Exam: alert and oriented. S kin: n ormal, no rash. P eripheral pulses: n ormal (2+) bilaterally. E xtremities: no leg edema. Assessment: * Assessment: 1. Kate DAO - J06.9 (Primary) 2 . Blue márquez - J40 Plan: * Treatment: Value Reference [...] Value Reference Range r esults Neg * GerrySocorro 02/01/2025 11:49:3 9 AM > , Provider [...] G 2211 Complex e/[place], [address] [place], [address] CAPILLARY BLOOD DRAW, 72741 CBC WITH AUTO DIFF, 79111 Flu Test- Nasal Swab, Modifiers: QW , 39923 COVID TEST IN HOUSE, Modifiers: QW , G8752 MOST RECENT SYSTOLIC BP < 140MM HG, G8754 MOST RECENT DIASTOLIC BP < 90MM HG * Follow Up: v ia phone to report test results * Images: Billing Information: * Visit Code: 40958 Office Visit, Est Pt., Level 3. * Procedure Codes: G2211 Complex e/[place] [address] [place]. [address] CAPILLARY BLOOD DRAW. 33945 CBC WITH AUTO DIFF. 96504 Flu Test- Nasal Swab. Modifiers: QW 91716 COVID TEST IN HOUSE. Modifiers: QW G8752 MOST RECENT SYSTOLIC BP < 140MM HG. G8754 MOST RECENT DIASTOLIC BP < 90MM HG. * Electronic signature of JUANITA Antony on 08/23/2025 at 02:18 PM EDT Sign off status: Pending * Provider: JUANITA Ochoa Date: 0 02/01/2025 Generated for Nicole solomon/Carmelita/eTransmitting on: 1 02:18 PM EDT History and Physical Notes * HPI (History of Present Illness) Category Sub-Category Detail Notes Category Not es HPI Here for follow up on: dehydrati on. She has been sick for the past 2 weeks. She initially went to the [facility] after she was exposed to flu with [...]
--- OUTSIDE RECORDS SUMMARY | 2025-04-18 09:45 | XMS_ITS ---
Author [facility] Address [address] [facility] [address] [place] [id number] Care Team Providers Care General Ii Farmworker Name Role Phone Faviola Tellez Primary Care Provider LibradoErnie johnsona Unavailable [phone] Allergies No Known Allergies Results Component Value [...] Interpretation: Performing Lab: Notes/Report: X ray : Spine, thoracic spin e Reviewed date:05/31/2025 01:30:31 PM Interpretation: Performing Lab: Notes/Report: X ray [...] 40 MG 1 tablet Orally Once a day; Duration: 90 days 04/03/2024 Active Glimepiride 2 MG TAKE 1 TABLET BY ONCE DAILY WITH BREAKFAST OR THE FIRST MAIN MEAL OF THE DAY; Duration: 90 Active CoQ10 200 MG as directed Orally Active Janumet 50-500 MG 1 tab(s) Orally once daily; Duration: 90 days Active Triamterene-HCTZ 37.5-25 MG 1/2 tablet in the morning Orally Once a day Active Albuterol Sulfate HFA 108 (90 Base) MCG/ACT 1 puff as needed Inhalation every 4 hrs, prn 02/01/2025 Not-Taking Mdxvueuyw-Ggrvnibz-ML 30-2-10 MG/5ML 5-10 ml Orally 4 times a day, prn 02/01/2025 Not-Taking Zithromax Z-Alberto 250 MG 2 pills first day then one daily for 4 days orally as directed 11/18/2023 Not-Taking Problems Problem Type SNOMED Code ICD Code Onset Dates Problem Status W/U Status Risk Notes Problem Type 2 diabetes mellitus with other specified complication, unspecified whether nursing home insulin use (E11.69) Active confirmed Problem COPD - Chronic obstructive pulmonary disease (19507205) Chronic obstructive pulmonary disease, unspecified COPD type (J44.9) Active confirmed Vital Signs Blood pressure systolic 110 mm Hg 04/18/20 25 Blood pressure diastolic 68 mm Hg 025 Heart Rate 71 /min 04/18/2025 Height 64 in 04/18/2025 Weight 168.8 lbs 04/18/2025 BMI 28.97 kg/m2 04/18/2025 Encounters Encounter Location Date Provider Diagnosis Julia [address] [facility] [address] [place], [place] [id number] 04/18/2025 Suzie Moss History of fall Z91. 81 ; Pain of left clavicle M89.8X1 ; Left elbow pain M25.522 ; Mid back pain M54.9 ; Acute midline low back pain without sciatica M54.50 ; Rib pain on left side R07.81 ; Imbalance R26.89 ; Type 2 diabetes mellitus with other specified complication, unspecified whether nursing home insulin use E11.69 ; Chronic obstructive pulmonary [...] mellitus with other specified complication, unspecified whether termite treater insulin use (ICD-10 - E11.69) 04/18/2025 Chronic obstructive pulmonary disease, unspecified COPD type (ICD-10 - J44.9) 04/18/2025 BMI 28.0-28.9,adult (ICD-10 - Z68.28) Plan Of Treatment Next Appt Details Follow Up: via phone to repo rt test results, Reason: Progress Notes * RONAK, JOSHUAOB: 9 (75 yo F)Acc No.[id number]:04/18/2025 Progress Notes Patient: DIPESH SAUCEDA Provider: JUANITA Ochoa :1950 A ge:74 Y S ex:Female Date:04/18/2025 Address:[employer] [id number] Pcp:Faviola Tellez Subjective: * Chief Complaints: * [...] Cath- [facility] 01/15/2009, Acquired Pneumonia- [place] [facility] 09/23/2010, Pneumonia- [facility] 09/25/2013, SOA, back and chest pain- [facility] ER 08/2017, Sinusitis- [facility] 04/23/2019, Rash- [facility] [place] 07/22/2019, Blood Sugar 59- [facility] 02/08/2021, Cough - [facility] 01/21/2025. * Family History: F ather: 50 yrs, [place]. M other: alive 82 yrs, [employer]. P [...] Inhalation every 4 hrs, prn , Not-Taking Mliswaibp-Kzuatpsw-VB 30-2-10 MG/5ML Syrup 5-10 ml Orally 4 [...] Temp: 97.9, BP: 110/68, HR: 71, Nurse: mmh, Ht: 64, BMI:28.97. * Examination: G eneral Examination: General Appearance: N AD. N lea: t tp along the left clavical. C hest: n ormal shape and expansion, ttp along the left ribs. H eart: R SR. L ungs: c lear to auscultation. E xtremities: t tp along the left elbow, no ttp along the left shoulder or wrist. L ower back: Inspection: n ormal curvature of spine. P alpation:?ttp along the mid T-spine and the low L-spine. S traight leg raising test: n egative bilaterally. M otor system: n ormal bilaterally. S ensory exam: n ormal bilateral LE. Gait: m oves slowly due to pain. R danielle of motion: d ecreased at terminal ranges. Assessment: * Assessment: 1. H istory of [...] mellitus with other specified complication, unspecified whether nursing home insulin use - E11.69 9 . C hronic obstructive pulmonary disease, unspecified COPD type - J44.9 1 0. B IA 28.0-28.9,adult - Z68.28 Plan: * Treatment: 2.?Left elbow pain?Imaging: X ray : Elbow, left (Performed Date - 04/18/2025)?old trauma, nothing acute* Suzie Moss 04/19/2025 0 3:45:55 PM >see TE 3.?Mid back pain?Imaging: X ray : Spine, thoracic spine (Performed Date - 04/19/2025)* Maribeth Paulson 05/31/2025 01: 29:50 PM EDT > see lumbarsacral x-ray 4.?Acute midline low back pain without sciatica?Imaging: X ray : Spine, lumbosacral (Performed Date - 04/18/2025)* Suzie Moss 04/19/2025 0 3:45:30 PM >see TE 5.?Rib pain on left side?Imaging: X ray : Rib series, left (Performed Date - 04/18/2025)* Suzie Moss 04/19/2025 0 3:45:12 PM >see TE * [...] * Images: Billing Information: * Visit Code: 26386 Office Visit, Est Pt., Level 4. * [...] Ochoa Date: 0 04/18/2025 Generated for Nicole solomon/Carmelita/eTransmitting on: 1 02:18 [...]
--- OUTSIDE RECORDS SUMMARY | 2025-05-16 05:15 | XMS_ITS ---
Author Organization [facility] Address [address] [place] [id number] Care Team Providers Care Principal Administrative Clerk Name Role Phone Faviola Tellez Primary Care Provider LibradoErnie johnsona Unavailable [phone] Allergies No Known Allergies Results Component Value Reference Range Notes CBC Venipuncture (in house) Reviewed date:05/31/2025 01:28:02 PM Interpretation:Normal Performing Lab: Notes/Report: Normal wbc 7.3 3.5 - 10 lymph 34.3% 15 - 50 mid 7.0% 2 - 15 gran 58.7% 35 - 80 rbc 4.65 3.5 - 5.5 hgb 12.4 11.5 - 16.5 hct 38.5 35 - 55 mcv 82.7 75 - 100 mch 26.6 25 - 35 mchc 32.3 31 - 38 platlet 153 100 - 400 Glycohemoglobin A1c (in hous e) Reviewed date:05/31/2025 01:28:02 PM Interpretation:9.2 Performing Lab: Notes/Report: 9.2 glycohemoglobin 9.2% 5 - 6.5 % P-Comprehensive Metabolic Pa jeovanny (CMP) Reviewed date:05/31/2025 01:28:02 PM Interpretation:gluc, 223, alk phos 125 Performing Lab: Notes/Report: Test performed by [facility] [address] [place] [address] , [address], [place] [address] Genaro Moran MD, [facility] [employer] CLIA: [id number] Sodium 138 135-145 mmol/L Potassium 4.6 3.5-5.3 mmol/L Chloride 103 97-108 mmol/L CO2 24 20-32 mmol/L Glucose 223 65-99 mg/dL BUN 15 8-23 mg/dL Creatinine 0.96 0.50-1.00 mg/dL Calcium 9.4 8.6-10.4 mg/dL eGFR by Creatinine 61 >59 mL/min/1.73m2 Protein 6.7 6.0-8.3 g/dL Albumin 4.2 3.5-5.3 g/dL Alkaline Phosphatase 125 35-121 IU/L ALT (SGPT) 29 <5-47 IU/L AST (SGOT) 23 <5-40 IU/L Bilirubin, Total 0.5 <0.2-1.2 mg/dL A/G Ratio 1.7 1.1-2.5 P-Lipid Panel Reviewed date:05/31/2025 01:28:02 PM Interpretation:chol 203, chol/hdl 4.72, non-hdl 160, ldl 136 Performing Lab: Notes/Report: Test performed by [facility], [address] , [address] , [place] [address] Genaro Morna MD, [employer] CLIA: [id number] Cholesterol 203 <200 mg/dL Triglycerides 120 <150 mg/dL HDL Cholesterol 43 >39 mg/dL Cholesterol / HDL Ratio 4.72 0.00-4.44 Ratio Non-HDL Cholesterol 160 <130 mg/dL LDL Cholesterol (Calculation) 136 <130 mg/dL LDL Cholesterol Levels* Less than 100 mg/dL Optimal 100 to 129 mg/dL Near Optimal/ Above Optimal 130 to 159 mg/dL Borderline High 160 to 189 mg/dL High 190 mg/dL and above Very High * Categories as recommended by the 2004 ATPIII guidelines LDL/HDL Ratio 3.2 <3.3 Ratio LDL Cholesterol Patient History Test Date: 12/27/2023 LDL Results: 142 Units: mg/dL % Change: - Test Date: 05/16/2025 LDL Results: 136 Units: mg/dL % Change: -4% P-Microalbumin/Creatinine, R andom Urine Sample Reviewed date:05/31/2025 01:28:02 PM Interpretation:Normal Performing Lab: Notes/Report: Test performed by [facility] [address] [place] [address] , [place] [address] Genaro Moran MD, [employer] CLIA: [id number] Albumin/Creatinine Ratio, Urine 19 0-30 ug/m g Microalbumin, Urine, Random 2.6 Creatinine, Urine 135.3 P-Vitamin D 25-Hydroxy Reviewed date:05/31/2025 01:28:02 PM Interpretation:10.4 Performing Lab: Notes/Report: Test performed by [facility] [address] [place] [address] , [place] [address] Genaro Moran MD, [employer] CLIA: [id number] Vitamin D 25-Hydroxy 10.4 30.0-100.0 ng/mL Interpretation of Vitamin D 25 OH: < 20 ng/mL - Deficiency 20 - 29 ng/mL - Insufficiency 30 - 100 ng/mL - Sufficiency > 100 ng/mL - Super-therapeutic- toxicity may occur above this level. Clinical correlation required. Reason For Referral Diagnosis 1 Balance problem (R26 .89) Diagnosis 2 Piriformis syndrome of left side (G57.02) Diagnosis 3 Sciatica of left janice e (M54.32) Diagnosis 4 Neck muscle spasm (M 62.838) Referral Organization [facility] Referring Provider First Name Suzie Referring Provider Last Name Libradoalex Referring Provider Speciality Physician Wool Tamper Referred Provider Specialty Physical The rapist General Notes Marybeth Be 2024 04:21:44 PM > faxed to [facility] PT Referral Priority Routine REASON FOR VISIT AWV with checkup and Labs, due for diabetic eye exam Medications Medication SIG (Take, Route, Frequency, Duration) Notes Start Date End Date Status Metoprolol Succinate ER 25 MG TAKE 1 TABLET BY MOUTH ONCE DAILY; Duration: 90 Active Rosuvastatin Calcium 40 MG 1 tablet Orally Once a day; Duration: 90 days 04/03/2024 Active CoQ10 200 MG as directed Orally Active Triamterene-HCTZ 37.5-25 MG 1/2 tablet in the morning Orally Once a day Active Aspir-Low 81 MG 1 tab(s) orally once a day; Duration: 30 day(s) Active Janumet 50-500 MG 1 tab(s) Orally once daily; Duration: 90 days Active Albuterol Sulfate HFA 108 (90 Base) MCG/ACT 1 puff as needed Inhalation every 4 hrs, prn 11/18/2023 Not-Taking Dtelwjdub-Kjquopye-ER 30-2-10 MG/5ML 5-10 ml Orally 4 times a day, prn 02/01/2025 Not-Taking Albuterol Sulfate HFA 108 (90 Base) MCG/ACT 1 puff as needed Inhalation every 4 hrs, prn 02/01/2025 Not-Taking Zithromax Z-Alberto 250 MG 2 pills first day then one daily for 4 days orally as directed 11/18/2023 Not-Taking Symbicort 80-4.5 MCG/ACT 1 puffs Inhalation qid Active Ondansetron 4 MG 1 tablet on the tong ue and allow to dissolve Orally q6h prn 01/30/2025 Active Glimepiride 2 MG TAKE 1 TABLET BY SANJANA TH ONCE DAILY WITH BREAKFAST OR THE FIRST MAIN MEAL OF THE DAY; Duration: 90 Active Immunizations Vaccine Route Administration Date Status Comme nts Prevnar (PCV20) IM Intramuscular 05/16/2025 Administered Problems Problem Type SNOMED Code ICD Code Onset Dates Problem Status W/U Status Risk Notes Problem Sciatic nerve lesion (901024542) Piriformis syndrome of left side (G57.02) Active confirmed Vital Signs Blood pressure systolic 152 mm Hg 05/16/20 25 Blood pressure diastolic 70 mm Hg 025 Heart Rate 70 /min 05/16/2025 Height 64 in 05/16/2025 Weight 170.8 lbs 05/16/2025 BMI 29.31 kg/m2 05/16/2025 Encounters Encounter Location Date Provider Diagnosis [facility] [address] [facility] [address] [place], [place] [id number] 05/16/2025 Suzie Moss Adult general medica l examination Z00.00 ; Balance problem R26.89 ; Piriformis syndrome of left side G57.02 ; Sciatica of left side M54.32 ; Type 2 diabetes mellitus with hyperglycemia E11.65 ; Vitamin D deficiency E55.9 ; Primary hypertension I10 ; Hyperlipidemia, unspecified E78.5 ; Neck muscle spasm M62.838 ; Osteopenia, unspecified location M85.80 and BMI 29.0-29.9,adult Z68.29 Assessments Encounter Date Diagnosis (ICD Code) Assessment Notes Treatment Notes Treatment Clinical Notes Section Notes 05/16/2025 Adult general medical examination (ICD-10 - Z00.00) Patient instructed to return to office Annually for Annual Wellness Visits to include annual screenings of Pain assessment, Functional Ability assessment, Cognitive Ability assessment, Fall Risk assessment, Depression screening and Bladder control screening. 05/16/2025 Balance problem (ICD-10 - R26.89) 05/16/2025 Piriformis syndrome of left side (ICD-10 - G57.02) 05/16/2025 Sciatica of left side (ICD-10 - M54.32) 05/16/2025 Type 2 diabetes mellitus with hyperglycemia (ICD-10 - E11.65) 05/16/2025 Vitamin D deficiency (ICD-10 - E55.9) 05/16/2025 Primary hypertension (ICD-10 - I10) 05/16/2025 Hyperlipidemia, unspecified (ICD-10 - E78.5) 05/16/2025 Neck muscle spasm (ICD-10 - M62.838) 05/16/2025 Osteopenia, unspecified location (ICD-10 - M85.80) 05/16/2025 BMI 29.0-29.9,adult (ICD-10 - Z68.29) Plan Of Treatment Treatment Notes Assessment Notes Adult general medical examination Patien t instructed to return to office Annually for Annual Wellness Visits to include annual screenings of Pain assessment, Functional Ability assessment, Cognitive Ability assessment, Fall Risk assessment, Depression screening and Bladder control screening. Referrals Referral Date Details 05/16/2025 05/16/2025 Next Appt Details Follow Up: As directed by MD , Reason: Progress Notes * JOSHUA SIMONSOB: 9 (75 yo F)Acc No.[id number]:05/16/2025 Physical Patient: DIPESH SAUCEDA Provider: JUANITA Ochoa :1950 A ge:74 Y S ex:Female Date:05/16/2025 Address:[address] [place], [place] [id number] Pcp:Faviola Tellez Subjective: * Chief Complaints: * 1 . AWV with checkup and Labs. 2. Due for diabetic eye exam. * HPI: H PI: Patient is here today for a check up with labs and a Medicare Annual Wellness Visit. Pt states she is doing fair and denies any new concerns. Pt states she is still having pain on her left side. Pt rates her pain8-9/10 at times. Pt is fasting. * ROS: D ERMATOLOGY: no R kash. n o H flor. G ASTROENTEROLOGY: no N ausea. n o V omiting. n o D iarrhea.? O PTHALMOLOGY: Negative for d enies issues with vision. U ROLOGY: no D ifficulty urinating. n [...] Diagno stic Procedure: B ronchitis , Pneumonia/ [facility] 02/02/2008, Chest Pains- [facility] 12/27-05/2009, Heart Cath- [facility] 01/15/2009, Acquired Pneumonia- [facility] 09/23/2010, Pneumonia- [facility] ER 09/25/2013, SOA, back and chest pain- [facility] ER 08/2017, Sinusitis- [facility] ER 04/23/2019, Rash- [facility] 07/22/2019, Blood Sugar 59- [facility] ER 02/08/2021, Cough - [facility] 01/21/2025. * Family History: F ather: 50 yrs, [place]. M other: alive 82 yrs, [place]. P [...] Inhalation every 4 hrs, prn , Not-Taking Rlocewcwz-Uecmkqhx-AK 30-2-10 MG/5ML Syrup 5-10 ml Orally 4 [...] N .K.D.A. Objective: * Vitals: W t: 170.8, Temp: 98.0, BP: 152/70, HR: 70, O2 Sat: 97% on RA, Nurse: LINO, Ht: 64, BMI:29.31. * Examination: G eneral Examination: General Appearance: N AD. H EENT: u nremarkable.?Oral cavity: n o lesions, mucosa moist and WNL, no erythema. N lea: s upple, no lymphadenopathy, ttp along the left trapezius muscle with spasm present. C hest: n ormal shape and expansion. H eart: R SR. L ungs: c lear to auscultation. A bdomen: b owel sounds present, soft and nontender, no organomegaly or masses, no guarding or rigidity. N eurologic Exam: I ntact, gait normal. S kin: n ormal, no rash. P eripheral pulses: n ormal (2+) bilaterally. B ack: t tp along left piriformis muscle, pain with figure 4 test, radiation to knee. E xtremities: n o leg edema. * Physical Examination: G ENERAL: Pain Assessment: P ain level: 8, on a scale of 0 to 10 (10 being extreme pain). F unctional Status Assessment: P atient response to how often physical health interferes with daily activities: unsure Able to perform ADLs-including meal preparation, grocery shopping, housework, laundry, taking medications, or handling finances. Cognitive Status: Alert and oriented. Ambulation Status: Fully ambulatory. F all Risk Assessment: I ndependant in ambulation, adequate lighting in home. Patient has NOT fallen or had trouble walking within the past 12 months. D epression Screening: D enies depressed mood or anxiety. Describes emotional health as:calm/peaceful. B ladder Control Screening: D enies problems. Assessment: * Assessment: 1. A dult general medical examination - Z00.00 (Primary) 2 . B alance problem - R26.89 3 . P iriformis syndrome of left side - G57.02 4 .?Sciatica of left side - M54.32 5 . T ype 2 diabetes mellitus with hyperglycemia - E11.65 6 . V itamin D deficiency - E55.9 7 . P rimary hypertension - I10 8 . H yperlipidemia, unspecified - E78.5 9 .?Neck muscle spasm - M62.838 1 0. O steopenia, unspecified location - M85.80? 11. B [place] 29.0-29.9,adult - Z68.29 Plan: * Treatment: 2. B alance problem Referral To:Physical Therapist Reason: 3. P iriformis syndrome of left side Referral To:Physical Therapist Reason: 4. S ciatica of left side Referral To:Physical Therapist Reason: 5. T ype 2 diabetes mellitus with hyperglycemia L AB: P-Comprehensive Metabolic Panel (CMP) (Collection Date & Time - 05/16/2025 03:15 PM) g man, 223, alk phos 125 Value Reference Range A /G Ratio 1.7 1.1-2.5 - * A lbumin 4.2 3.5-5.3 - g/dL * A lkaline Phosphatase 125 H 35-121 - IU/L * A LT (SGPT) 29 <5-47 - IU/L * A ST (SGOT) 23 <5-40 - IU/L * B ilirubin, Total 0.5 <0.2-1.2 - mg/dL * B UN 15 8-23 - mg/dL * C alcium 9.4 8.6-10.4 - mg/dL * C hloride 103 97-108 - mmol/L * C O2 24 20-32 - mmol/L * C reatinine 0.96 0.50-1.00 - mg/dL * G lucose 223 H 65-99 - mg/dL * P otassium 4.6 3.5-5.3 - mmol/L * S odium 138 135-145 - mmol/L * P rotein 6.7 6.0-8.3 - g/dL * e GFR by Creatinine 61 >59 - mL/min/1.73m2 * Maribeth Paulson 05/31/2025 01: 27:54 PM EDT > See phone encounter ?LAB: P-Microalbumin/Creatinine, Random Urine Sample (Collection Date & Time - 05/16/2025 03:15 PM)?Normal* Value Reference Range A lbumin/Creatinine Ratio, Urine 19 0-30 - ug /mg * C reatinine, Urine 135.3 - mg/dL * M icroalbumin, Urine, Random 2.6 - mg/dL * Maribeth Paulson 05/31/2025 01: 27:54 PM EDT > See phone encounter ?LAB: Glycohemoglobin A1c (in house) (Collection Date & Time - 05/16/2025)? 9.2* Value Reference Range g lycohemoglobin 9.2% 5 - 6.5 % * Socorro Garrett 05/16/2025 10:49: 09 AM EDT > Maribeth Paulson 05/31/2025 01:27:54 PM EDT > See phone encounter 6.?Vitamin D deficiency?LAB: P-Vitamin D 25-Hydroxy (Collection Date & Time - 05/16/2025 03:15 PM)? 10.4* Value Reference Range V itamin D 25-Hydroxy 10.4 L 30.0-100.0 - ng/mL * Maribeth Paulson 05/31/2025 01: 27:54 PM EDT > See phone encounter 7.?Primary hypertension?LAB: CBC Venipuncture (in house) (Collection Date & Time - 05/16/2025)? Normal* Value Reference Range w bc 7.3 3.5 - 10 * l ymph 34.3% 15 - 50 * m id 7.0% 2 - 15 * g ran 58.7% 35 - 80 * r bc 4.65 3.5 - 5.5 * h gb 12.4 11.5 - 16.5 * h ct 38.5 35 - 55 * m cv 82.7 75 - 100 * m ch 26.6 25 - 35 * m chc 32.3 31 - 38 * p latlet 153 100 - 400 * Morris Garrettira 05/16/2025 10:47: 39 AM EDT > Maribeth Paulson 05/31/2025 01:27:54 PM EDT > See phone encounter 8.?Hyperlipidemia, unspecified?LAB: P-Lipid Panel (Collection Date & Time - 05/16/2025 03:15 PM)?chol 203, chol/hdl 4.72, non-hdl 160, ldl 136* Value Reference Range C holesterol / HDL Ratio 4.72 H 0.00-4.44 - Ratio * C holesterol 203 H <200 - mg/dL * H DL Cholesterol 43 >39 - mg/dL * L DL Cholesterol (Calculation) 136 H <130 - mg/d L * L DL/HDL Ratio 3.2 <3.3 - Ratio * N on-HDL Cholesterol 160 H <130 - mg/dL * T riglycerides 120 <150 - mg/dL * Maribeth Paulson 05/31/2025 01: 27:54 PM EDT > See phone encounter 9.?Neck muscle spasm? Referral To:Physical Therapist ?Reason: * Immunizations: Prevnar (PCV20) : 0.5 mL (Route: Intramuscular) given by Reena Montes on Right Deltoid * Procedure Codes: G 0438 ANNUAL [facility] VST; PERSNL PPS INIT, G2211 Complex e/m visit add on, 1090F PRES/ABSN URINE INCON ASSESS, 3288F FALL RISK ASSESSMENT DOCD, 1170F FXNL STATUS ASSESSED, 1159F MED LIST DOCD IN RCRD, 1003F LEVEL OF ACTIVITY ASSESS, 3017F COLORECTAL CA SCREEN DOC REV, G9899 Scrn juani perf rslts doc, 1036F TOBACCO NON- USER, 86721 CBC WITH AUTO DIFF, 46610 GLYCATED HEMOGLOBIN TEST, Modifiers: QW , 1125F AMNT PAIN NOTED PAIN PRSNT, 3046F HEMOGLOBIN A1C LEVEL > 9.0%, G8420 BMI<30 AND >=22 CALC & DOCU, G8950 PREHTN/HTN BP DOC INDCD F/U DOC, G8753 MOST RECENT SYSTOLIC BP >= 140MM HG, G8754 MOST RECENT DIASTOLIC BP < 90MM HG, 4040F PNEUMOC IMM ORDER/ADMIN * Preventive Medicine: Counseling: E motional health: E ncouraged to try connecting with family or friends to boost mood. B ladder control: D iscussed ways to control/manage leakage of urine. Exercise: A dvised to start, increase or maintain level of exercise/physical activity. I njury prevention: D iscussed fall prevention. Discussed need for cane/walker. Potential trip hazards discussed. Immunizations: T etanus u p to date. P neumococcal r ecommended. I nfluenza r ecommended seasonally. Screening / Special Tests: M ammogram R ecent history: 04/20/2025, negative.?Colonoscopy R ecent history: 04/05/2017, Dr. Baca, polyps, hemorrhoids, repeat 5 years. Order faxed to Dr. Baca for repeat colonoscopy 04/20/2025. B one mineral Density R ecent history: 05/04/2024, osteopenia. D iabetic Retinal Eye Exam R ecent history:, recommended today. Nephrology History R ecent history:, GFR and urine M/A ordered today. * Follow Up: A s directed by * Images: Billing Information: * Visit Code: 97827 Office Visit, Est Pt., Level 3. Modifiers: 25 * Procedure Codes: G0438 ANNUAL [facility] VST; PERSNL PPS INIT. G2211 Complex e/m visit add on. 1090F PRES/ABSN URINE INCON ASSESS. 3288F FALL RISK ASSESSMENT DOCD. 1170F FXNL STATUS ASSESSED. 1159F MED LIST DOCD IN RCRD. 1003F LEVEL OF ACTIVITY ASSESS. 3017F COLORECTAL CA SCREEN DOC REV. G9899 Scrn juani perf rslts doc. 1036F TOBACCO NON-USER. 45495 CBC WITH AUTO DIFF. 41530 GLYCATED HEMOGLOBIN TEST. Modifiers: QW 1125F AMNT PAIN NOTED PAIN PRSNT. 3046F HEMOGLOBIN A1C LEVEL > 9.0%. G8420 BMI<30 AND >=22 CALC & DOCU. G8950 PREHTN/HTN BP DOC INDCD F/U DOC. G8753 MOST RECENT SYSTOLIC BP >= 140MM HG. G8754 MOST RECENT DIASTOLIC BP < 90MM HG. 4040F PNEUMOC IMM ORDER/ADMIN. * Electronic signature of JUANITA Antony on 08/23/2025 at 02:18 PM EDT Sign off status: Pending * Provider: JUANTIA Ochoa Date: 0 05/16/2025 Generated for Printi ng/Faxing/eTransmitting on: 1 02:18 PM EDT History and Physical Notes * HPI (History of Present Illness) Category Sub-Category Detail Notes Category Not es HPI Patient is here today for a [facility] k up with labs and a Medicare Annual Wellness Visit. Pt states she is doing fair and denies any new concerns. Pt states she is still having pain on her left side. Pt rates her pain8-9/10 at times. Pt is fasting Physical Examination Category Sub-Category Detail Notes Section Note s GENERAL Pain Assessment: Pain level: 8, on a scale of 0 to 10 (10 being extreme pain) Functional Status Assessment: Patient re sponse to how often physical health interferes with daily activities: unsureAble to perform ADLs-including meal preparation, grocery shopping, housework, laundry, taking medications, or handling finances.Cognitive Status: Alert and oriented.Ambulation Status: Fully ambulatory Fall Risk Assessment: Independant in amb ulation, adequate lighting in home. Patient has NOT fallen or had trouble walking within the past 12 months Depression Screening: Denies depressed m ood or anxiety. Describes emotional health as:calm/peaceful Bladder Control Screening: Denies proble ms Examination Category Sub-Category Detail Notes Category Not es General Examination HEENT: unremarkable Heart: RSR Lungs: clear to auscultatio n Abdomen: bowel sounds present , soft and nontender, no organomegaly or masses, no guarding or rigidity Extremities: no leg edema General Appearance: NAD Skin: normal, no rash Neurologic Exam: Intact, gait normal Neck: supple, no lymphaden opathy, ttp along the left trapezius muscle with spasm present Oral cavity: no lesions, mucosa m oist and WNL, no erythema Peripheral pulses: normal (2+) bilatera lly Back: ttp along left pirif ormis muscle, pain with figure 4 test, radiation to knee Chest: normal shape and exp ansion Consultation Request Notes Referral Date Referring Provider Referred Provider Not es 05/16/2025 Suzie Moss ,
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
--- OUTSIDE RECORDS SUMMARY | 2025-08-23 14:18 | XMS_ITS | Patient Health Record ---
[facility] [address] [facility] [address] [place] [id number] Care Team Providers Care Chain Builder Name Role Phone Faviola Tellez Primary Care Provider Patrizia Rai Unavailable [phone] Suzie Moss Unavailable [phone] Allergies No Known Allergies Results Component Value Reference Range Notes CBC Fingerstick (in house) Reviewed date:02/01/2025 11:51:53 [...] AM Interpretation: Performing Lab: Notes/Report: results Neg P-COVID 19 Reviewed date:01/31/2025 04:29:54 PM Interpretation:Negative Performing Lab: Notes/Report: CLIA: [id number] Genaro Moran MD, Fiber Technician [address] [place] [address] , [address], [place] [address] Test performed by [facility] SARS-CoV-2, RNA: Not Detected Not Detected This [...] perform high complexity testing. Test performed by [facility], [address] [place] [address] , [address] , [place] [address], Nani Grewal DO, Fiber Technician, [place]# [id number] First Test? Yes Employed in Healthcare? No Symptomatic as defined by CDC? Yes Date of Symptom Onset? 01/21/2025 Hospitalized? No ICU? No Resident in Congregate Care Setting? No ? No P-Comprehensive Metabolic Pa jeovanny (CMP) Reviewed date:01/31/2025 04:30:31 PM Interpretation:gluc 144, Cr 1.33, gfr 42, alk phos 126 Performing Lab: Notes/Report: CLIA: [id number] Genaro Moran MD, Fiber Technician [address] [place] [address] , [address] , [place] [address] Test performed by [facility] Sodium 142 135-145 mmol/L Potassium 4.4 3.5-5.3 [...] 0.7 <0.2-1.2 mg/dL A/G Ratio 1.6 1.1-2.5 CBC Fingerstick (in house) Reviewed date:01/30/2025 12:26:35 [...] - 38 plat 155 100 - 400 Influenza Screen (in house) Reviewed date:01/30/2025 12:26:17 PM Interpretation:Negative Performing Lab: Notes/Report: Negative results neg Urinalysis - Inhouse Reviewed date:01/30/2025 12:25:47 PM Interpretation: Performing Lab: Notes/Report: Color/Clarity justine Leuk neg Nitrite neg Urobili 16 Protein 2+ pH 5.0 Blood neg Sp. Gr. >=1.030 Ketone neg Bili 3+ Gluc trace TEN-Upper Respiratory PCR Reviewed date:02/05/2025 01:20:10 PM Interpretation:Morazella catarrhalis Performing Lab: Notes/Report: Morazella catarrhalis Covid test (in house) Reviewed date:02/01/2025 11:50:13 AM Interpretation: Performing Lab: Notes/Report: Result: Neg P-Vitamin D 25-Hydroxy Reviewed date:05/31/2025 01:28:02 PM Interpretation:10.4 Performing Lab: Notes/Report: CLIA: [id number] Genaro Moran MD, Fiber Technician [facility] , [address], [place] [address] Test performed by [facility] Vitamin D 25-Hydroxy 10.4 30.0-100.0 ng/mL Interpretation of Vitamin D 25 OH: < 20 ng/mL - Deficiency 20 - 29 ng/mL - Insufficiency 30 - 100 ng/mL - Sufficiency > 100 ng/mL - Super-therapeutic- toxicity may occur above this level. Clinical correlation required. X ray : Spine, lumbosacral Reviewed date:04/19/2025 [...] date:04/19/2025 03:46:17 PM Interpretation: Performing Lab: Notes/Report: CBC Venipuncture (in house) Reviewed date:05/31/2025 01:28:02 [...] 125 Performing Lab: Notes/Report: Test performed by [facility] , [address], [place] [address] Genaro Moran MD, Fiber Technician CLIA: [id number] Sodium 138 135-145 mmol/L Potassium 4.6 3.5-5.3 [...] 136 Performing Lab: Notes/Report: Test performed by [facility], [address] , [place] [address] Genaro Moran MD, Fiber Technician CLIA: [id number] Cholesterol 203 <200 mg/dL Triglycerides 120 <150 [...] Interpretation:Normal Performing Lab: Notes/Report: Test performed by [facility] [address] , [address], [place] [address] Genaro Moran MD, Fiber Technician CLIA: [id number] Albumin/Creatinine Ratio, Urine 19 0-30 ug/mg Microalbumin, Urine, Random 2.6 Creatinine, Urine 135.3 Mammogram Reviewed date:05/01/2025 02:52:49 PM Interpretation:Negative Performing Lab: Notes/Report: Negative result neg Medications Medication SIG (Take, Route, Frequency, Duration) Notes Start Date End Date Status Metoprolol Succinate ER 25 MG TAKE 1 TABLET BY MOUTH ONCE DAILY; Duration: 90 Active Symbicort 80-4.5 MCG/ACT 1 puffs Inhalation qid Active Ondansetron 4 MG 1 tablet on the tong ue and allow to dissolve Orally q6h prn 01/30/2025 Active Mounjaro 2.5 MG/0.5ML as directed Subcut aneous once a week 06/01/2025 Active metFORMIN HCl 500 MG 1 tablet with a juan l Orally twice a day; Duration: 90 days 06/05/2025 Active Glimepiride 2 MG 1 tablet with breakf ast or the first main meal of the day Orally Once a day Active Albuterol Sulfate HFA 108 (90 Base) MCG/ACT 1 puff as needed Inhalation every 4 hrs, prn 11/18/2023 Not-Taking Kremdpffw-Icyguwem-VB 30-2-10 MG/5ML 5-10 ml Orally 4 times a day, prn 02/01/2025 Not-Taking Rosuvastatin Calcium 40 MG 1 tablet Orally Once a day; Duration: 90 days 04/03/2024 Active Albuterol Sulfate HFA 108 (90 Base) MCG/ACT 1 puff as needed Inhalation every 4 hrs, prn 02/01/2025 Not-Taking CoQ10 200 MG as directed Orally Active Zithromax Z-Alberto 250 MG 2 pills first day then one daily for 4 days orally as directed 11/18/2023 Not-Taking Triamterene-HCTZ 37.5-25 MG 1/2 tablet in the morning Orally Once a day Active Aspir-Low 81 MG 1 tab(s) orally once a day; Duration: 30 day(s) Active Vitamin D3 125 MCG (5000 UT) 1 capsule Orally Once a day; Duration: 90 days 06/01/2025 Active Immunizations Vaccine Route Administration Date Status Comme nts uDxejoxt-gpioeqafc-gzasnls e pts. IM Intramuscular 10/30/2014 Administered xFluzone Intradermal (18-64yrs)-trivalent ID Intradermal 08/08/2012 Administered xFluzone (6mos and older)-trivalent IM Intramuscular 12/14/2013 Administered xFlu shot-36 months and older IM Intramuscular 10/16/2008 Administered Tetanus Tdap-Adacel (over 7yrs) IM Intramuscular 03/24/2017 Administered Prevnar (PCV20) IM Intramuscular 05/16/2025 Administered Prevnar (PCV13) IM Intramuscular 10/30/2014 Administered [...] Status W/U Status Risk Notes Problem Type II diabetes mellitus without complication (086981349) Type 2 diabetes mellitus without complications (E11.9) Active confirmed Problem Vitamin D deficiency (33168096) Vitamin D deficiency (E55.9) Active confirmed Problem Hypoglycemia (033377657) Hypoglycemia (E16.2) Active confirmed Problem Sciatic nerve lesion (732874753) Piriformis syndrome of left side (G57.02) Active confirmed Problem Hyperglycemia due to type 2 diabetes mellitus (438655255282772) Type 2 diabetes mellitus with hyperglycemia (E11.65) Active confirmed Problem Sciatica (45326762) Sciatica of left side (M54.32) Active confirmed Problem Arteriosclerotic vascular disease (86007599) Arteriosclerotic cardiovascular disease (I25.10) Active confirmed Problem Hyperlipidemia (80103596) Hyperlipidemia, unspecified (E78.5) Active confirmed Problem Cardiac pacemaker in situ (815266620) Status cardiac pacemaker (Z95.0) Active confirmed Problem COPD - Chronic obstructive pulmonary disease (67186963) Chronic obstructive pulmonary disease, unspecified COPD type (J44.9) Active confirmed Problem Abnormal gait (80444166) Imbalance (R26.89) Active confirmed Problem Dyslipidemia (251583393) Dyslipidemia (E78.5) Active confirmed Problem Osteopenia (794978759) Osteopenia, unspecified location (M85.80) Active confirmed Problem Fibrocystic breast changes (13786759) Fibrocystic breast disease (FCBD), unspecified laterality (N60.19) Active confirmed Problem Exacerbation of intermittent asthma (543704388) Mild intermittent asthmatic bronchitis with acute exacerbation (J45.21) Active confirmed Problem Type II diabetes mellitus without complication (696458898) Type 2 diabetes mellitus without complication, unspecified whether exterminator termite insulin use (E11.9) Active confirmed Problem Localized, primary osteoarthritis of the shoulder region (432966736) 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) Active confirmed Problem Basal cell carcinoma of ala nasi (disorder) (093525279) Basal cell carcinoma (BCC) of ala nasi (C44.311) Active confirmed Problem Type 2 diabetes mellitus with other specified complication, unspecified whether exterminator termite insulin use (E11.69) Active confirmed Problem Primary hypertension (90211474) Primary hypertension (I10) Active confirmed Problem Screening mammography (97152419) Screening mammogram for breast cancer (Z12.31) Active confirmed Vital Signs Heart Rate 70 /min 05/16/2025 Blood pressure diastolic 70 mm Hg 05/16/2025 Height 64 in 05/16/2025 Blood pressure systolic 152 mm Hg 05/16/2025 Weight 170.8 lbs 05/16/2025 BMI 29.31 kg/m2 05/16/2025 Encounters Encounter Location Date Provider Diagnosis [facility] [address] [place], [place] [id number] 02/05/2025 Suzie Moss Bronchitis J40 [facility] [address] [facility] [address] [place], [place] [id number] 04/19/2025 Suzie Crowdy [facility] [address] [place], [place] [id number] 04/20/2025 Szuie Isa [facility] [address] [place], [place] [id number] 05/31/2025 Suzie Libradoalex [facility] [address] [place], [place] [id number] 04/18/2025 Suzie Moss History of fall Z91. 81 ; Pain of left clavicle M89.8X1 ; Left elbow pain M25.522 ; Mid back pain M54.9 ; Acute midline low back pain without sciatica M54.50 ; Rib pain on left side R07.81 ; Imbalance R26.89 ; Type 2 diabetes mellitus with other specified complication, unspecified whether exterminator termite insulin use E11.69 ; Chronic obstructive pulmonary disease, unspecified COPD type J44.9 and BMI 28.0-28.9,adult Z68.28 [facility] [address] [place], [place] [id number] 01/30/2025 Patrizia Rai Type 2 diabetes karl itus without complications E11.9 ; Dyslipidemia E78.5 ; Primary hypertension I10 ; Gastroenteritis K52.9 ; URI (upper respiratory infection) J06.9 and Back pain M54.9 [facility] [address] [place], [place] [id number] 02/01/2025 Suzie Moss Acute URI J06.9 and Bronchitis J40 [facility] [address] [place], [place] [id number] 05/16/2025 Suzie Moss Adult general medica l [...] - E78.5) 02/05/2025 Bronchitis (ICD-10 - J40) 04/18/2025 History of fall (ICD-10 - Z91.81) 04/18/2025 Pain of left clavicle (ICD-10 - M89.8X1) 05/16/2025 Adult general medical examination (ICD-10 - Z00.00) Patient instructed to return to office Annually for Annual Wellness Visits to include annual screenings of Pain assessment, Functional Ability assessment, Cognitive Ability assessment, Fall Risk assessment, Depression screening and Bladder control screening. 05/16/2025 Balance problem (ICD-10 - R26.89) 02/01/2025 Bronchitis (ICD-10 - J40) 02/01/2025 Acute URI (ICD-10 - J06.9) 04/18/2025 Left elbow pain (ICD-10 - M25.522) 05/16/2025 Piriformis syndrome of left side (ICD-10 - G57.02) 01/30/2025 Primary hypertension (ICD-10 - I10) 01/30/2025 Gastroenteritis (ICD-10 - K52.9) will hold trimamterene /HCTZ while she is not drinking; stressed need to increase fluid intake; she demonstrated understanding 04/18/2025 Mid back pain (ICD-10 - M54.9) 05/16/2025 Sciatica of left side (ICD-10 - M54.32) 05/16/2025 Type 2 diabetes mellitus with hyperglycemia (ICD-10 - E11.65) 04/18/2025 Acute midline low back pain without sciatica (ICD-10 - M54.50) 01/30/2025 URI (upper respiratory infection) (ICD-10 - J06.9) fluids, rest, supportive measures for fever/symptom relief 01/30/2025 Back pain (ICD-10 - M54.9) follows with Pain management; UA is neg fot UTI 04/18/2025 Rib pain on left side (ICD-10 - R07.81) 05/16/2025 Vitamin D deficiency (ICD-10 - E55.9) 05/16/2025 Primary hypertension (ICD-10 - I10) 04/18/2025 Imbalance (ICD-10 - R26.89) 04/18/2025 Type 2 diabetes mellitus with other specified complication, unspecified whether exterminator termite insulin use (ICD-10 - E11.69) 05/16/2025 Hyperlipidemia, unspecified (ICD-10 - E78.5) 05/16/2025 Neck muscle spasm (ICD-10 - M62.838) 04/18/2025 Chronic obstructive pulmonary disease, unspecified COPD type (ICD-10 - J44.9) 04/18/2025 BMI 28.0-28.9,adult (ICD-10 - Z68.28) 05/16/2025 Osteopenia, unspecified location (ICD-10 - M85.80) 05/16/2025 BMI 29.0-29.9,adult (ICD-10 - Z68.29) Plan Of Treatment Pending Test Test Name Order Date colonoscopy 04/20/2025 Insurance Providers Payer Name Payer Address Payer Phone Subscriber Number Group Number Insured Name Patient Relationship to Insured Coverage Start Date Coverage End Date MEDICARE PART B [address] [address] [place] [address] [phone] [id number] DIPESH SIMONS Self - patient is the insured [facility] [address] [place] [address] [id number] DIPESH SIMONS Self - patient is the [...] cataract/bilateral Hospitalization History Reason Date(Month/Year) Cough - [facility] 01/21/2025 Blood Sugar 59- [facility] 02/08/2021 [place] [facility] [place]/2019 Sinusitis- [facility] 04/23/2019 SOA, back and chest pain- [facility] 08/2017 Pneumonia- [facility] ER 09/25/2013 Acquired Pneumonia- [place] [facility] 09/23/2010 Heart Cath- [facility] 01/15/20 09 Chest Pains- [facility] 12/27-05/2009 Pneumonia/ [facility] 02/02/2008 Bronchitis
== END 2025-08-23 23:59 | disposition home or self-care (01) ==
LOC: RAD 14:15
PROVIDERS: PCP Family Medicine; Visit Provider Nurse Practitioner Family
DX: Z95.0 Presence of cardiac pacemaker (principal); V89.2XXA Person injured in unspecified motor-vehicle accident, traffic, initial encounter
CPT/HCPCS: 71046